=== PATIENT | male | born 1960 | race Caucasian/White ===

== ENCOUNTER 2017-10-31 19:15 | Inpatient (IN) | payer OTHER, MEDICAID ==
[~2017-10-31] VITALS: Ht 170.2 cm; Wt 58.5 kg
--- NOTE | 2017-10-31 19:15 | NUR ---
PT BIBA ALS TO ER BED 10
--- NOTE | 2017-10-31 19:20 | NUR ---
BIBA with c/o of clogged reny cath. pt was unable to recieve dialysis today. pt came from [facility]. pt is on a vent. at 35 %. pt has hx of pressure ulcers x 2. one on each buttocks. pt also has a smallwound on the upper part of chest and a scratch by his reny cath. [facility] stated that he was trying to pull out all his quitin cath and vent. pt has mittens to prevent from pulling out all tubes. pt is nonverbal.; SKIN IS Pale/cool/DRY; AAOX1. LUNGS CLEAR BL; HR EVEN AND REGULAR; PATIENT STATES PAIN OF 0/10 AT THIS TIME used flacc scale.; VSS; PATIENT POSITIONED FOR COMFORT; HOB ELEVATED; BEDRAILS UP X2; BED DOWN. ER MD MADE AWARE OF PT STATUS.
[2017-10-31 19:31] VITALS: BP 100/55
[2017-10-31] MEDS ORDERED: D50SYR IVP (19:42)
[2017-10-31] MEDS ORDERED: LEVE100S GT (19:42)
[2017-10-31] MEDS ORDERED: ACET160S12 GT (19:42)
[2017-10-31] MEDS ORDERED: VALP250S5 GT (19:42)
[2017-10-31] MEDS ORDERED: METO25TA GT (19:42)
[2017-10-31] MEDS ORDERED: AMIO200T25 GT (19:42)
[2017-10-31] MEDS ORDERED: PANT40PK GT (19:42)
[2017-10-31] MEDS ORDERED: NEP GT (19:42)
[2017-10-31] MEDS ORDERED: HYDR-636 GT (19:42)
[2017-10-31 20:22] LABS: HEMATOCRIT 35.3 % (36-52); HEMOGLOBIN 11.1 g/dL (12.0-18.0); MEAN CORPUSCULAR HEMOGLOBIN 30 pg (27-31); MEAN CORPUSCULAR HGB CONC 31 g/dL (33-37); MEAN CORPUSCULAR VOLUME 96.1 fL (80-94); PLATELET COUNT (AUTO) 546 K/uL (140-450); RED BLOOD CELL COUNT(AUTO) 3.68 MIL/uL (4.20-6.10); RED CELL DISTRIBUTION WIDTH 17.7 % (11.6-13.7)
[2017-10-31 20:43] LABS: EOSINOPHILS % (MANUAL) 3 % (0-4); LYMPHOCYTES % (MANUAL) 7 % (20-46); METAMYELOCYTES % 2 % (0-0); MONOCYTES % (MANUAL) 7 % (5-12); PROMYELOCYTES % 1 % (0-0)
[2017-10-31 20:51] LABS: ALBUMIN 2.5 g/dL (3.4-5.0); ANION GAP 17.8 (8-16); CARBON DIOXIDE 24.4 mmol/L (21-32); POTASSIUM 4.2 mmol/L (3.5-5.1); TOTAL BILIRUBIN 0.4 mg/dL (0.0-1.0)
[2017-10-31 20:52] LABS: PROTHROMBIN TIME 12.9 secs (10.8-13.4)
[2017-10-31 20:58] LABS: CREATINE KINASE MB 1.1 ng/mL (0-3.6)
[2017-10-31 21:00] LABS: CREATININE 6.3 mg/dL (0.7-1.3)
[2017-10-31] MEDS ORDERED: NACL 0.9% 1,000 ML IV SCH (21:11)
[2017-10-31] MEDS ORDERED: DOCUSATE SODIUM 100 MG GELCAP PO PRN (21:15)
[2017-10-31] MEDS ORDERED: MORPHINE SULFATE 2 MG/ML SYR IVP PRN (21:15)
[2017-10-31] MEDS ORDERED: HYDROcodone/APAP 5/325 MG 1 TAB TAB PO PRN (21:15)
[2017-10-31] MEDS ORDERED: ONDANSETRON 4 MG/2 ML VIAL IM/IVP PRN (21:15)
[2017-10-31] MEDS ORDERED: ACETAMINOPHEN 325 MG TAB PO PRN (21:15)
[2017-10-31 21:51] LABS: CHOL/HDL RATIO 3.4 (1-4.5); FREE T4 (FREE THYROXINE) 1.02 ng/dL (0.76-1.46); MAGNESIUM 2.7 mg/dL (1.8-2.4); THYROID STIMULATING HORMONE 5.24 uIU/mL (0.34-3.74)
[2017-10-31] MEDS ORDERED: DEXT 5% / NACL 0.9% 500 ML IV SCH (22:05)
[2017-10-31 22:06] LABS: PHOSPHORUS 4.1 mg/dL (2.5-4.9)
[2017-10-31] MEDS ORDERED: LORazepam 1 MG TAB PO PRN (22:30)
[2017-10-31] MEDS ORDERED: hydrOXYzine HCL 25 MG TAB GT SCH (22:30)
[2017-10-31] MEDS ORDERED: ACETAMINOPHEN GT SCH (22:30)
[2017-10-31] MEDS ORDERED: DEXTROSE 50% 50 ML SYR IVP PRN (22:30)
--- NOTE | 2017-10-31 22:30 | NUR ---
PATIENT TRANSFERRED TO ROOM 114 VIA 100% AMBU BAG AND THEN PLACED BACK ON CURRENT VENTILATOR SETTINGS AC-12, VT-450, FIO2-35% PEEP+5. NO SIGNS OF RESP. DISTRESS NOTED DURING TRANSPORT HR-88, SAO2-100% RR-17BPM
--- NOTE | 2017-10-31 22:30 | NUR ---
NOTED 2 EXISTING PRESSURE ULCER WOUNDS. ONE ON EACH BUTTOCKS.
[2017-10-31 22:40] VITALS: BP 110/59
--- NOTE | 2017-10-31 22:40 | NUR ---
REPORT RECEIVED FROM ED NURSE AT BEDSIDE. PT IN STABLE CONDITION. AAOX1. NONVERBAL. BOARD UPDATED. PT IS A TRACH TO VENT. VENT SETTINGS ARE FOLLOWS: FIO2 35, VT 450, RATE 12, PEEP 5. PT HAS COLOSTOMY. PT IS ALSO INCONTINENT WEARING A DIAPER. PT CAME IN WEARING MITTENS DUE TO ATTEMPTING TO PULL OUT IV LINE AND TRACH. IV SITE R WRIST 22G PATENT AND INTACT RUNNING D5NS @50ML/HR. PT HAS A LEFT NECK REBECCA CATH THAT HAS MALFUNCTIONED. THE LEFT SIDE OF THE CATHETER IS NOT SECURED. PT IS TELE MONITORING. SKIN WARM, DRY, AND NOT INTACT DUE TO PRESSURE ULCER ON LEFT BUTTOCKS. HEALED PRESSURE ULCER ON SACRUM AND RIGHT BUTTOCK. BED LOCKED IN LOW POSITION. CALL JUAREZ WITHIN REACH. Addendum: 11/01/17 at 0224 by Humberto Tran RN PT HAS JOHNY.
--- NOTE | 2017-10-31 22:40 | NUR ---
Pt report given to tammy pozo. Transfer of care at this time. pt vitals stable
--- NOTE | 2017-10-31 22:40 | NUR ---
Admited to telemetry. Will go to room 114. Belongings list completed. Report to tammy lucas.
[2017-10-31] MEDS ORDERED: ACETAMINOPHEN 650 MG/20.3 ML UDC GT PRN (23:00)
[2017-10-31] MEDS ORDERED: PIPERACILLIN/TAZOBACTAM 2.25 GM VIAL IV ONE (23:54)
[2017-11-01] VITALS: BP 89/50
[2017-11-01] MEDS ORDERED: PIPER/TAZO 3.375GM/D5W PREMIX 50 ML IV SCH
--- NOTE | 2017-11-01 | NUR ---
FEDERICA PALACIOS GIVEN THROUGH GTUBE. GTUBE WAS SLIGHTLY CLOGGED. FLUSHED WITH WATER TILL UNCLOGGED. PT TOLERATED WELL. Addendum: 11/01/17 at 0230 by Humberto Tran RN HAD TO OVER RIDE ZOSYN. DUPLICATE ORDER WAS NON ADMINISTRATED.
[2017-11-01] MEDS ORDERED: VANCOMYCIN PER PHARMACY MC PRN (00:15)
--- NOTE | 2017-11-01 00:15 | NUR ---
SEIZURE PRECAUTIONS IN PLACE.
--- NOTE | 2017-11-01 00:30 | NUR ---
CHECKING ON PT AND HE KEEPS REACHING FOR HIS TRACH LOOKING LIKE HE IS TRYING TO PULL IT OUT. GRABBED HIS HAND AND PULLED IT AWAY FROM HIS TRACH BUT PT CONTINUES TO TRY TO REACH FOR IT.
--- NOTE | 2017-11-01 00:45 | NUR ---
LEFT BUTTOCK PRESSURE ULCER WOUND CULTURE RECEIVED AND SENT TO LAB.
--- NOTE | 2017-11-01 01:15 | NUR ---
RT IN TO CHECK ON VENT SETTINGS. SAID THAT PT HAD HANDS AROUND HIS TRACH LOOKING LIKE HE WAS GOING TO PULL IT OUT. WENT TO MD TO ASK FOR WRIST RESTRAINTS.
--- NOTE | 2017-11-01 01:20 | NUR ---
WRIST RESTRAINTS APPLIED TO PREVENT PULLED OUT OF IV LINES AND TRACH.
--- NOTE | 2017-11-01 01:30 | NUR ---
CALLED INSTRUCTOR BUS TROLLEY AND TAXI FOR SCD'S. SCD'S APPLIED.
[2017-11-01] MEDS ORDERED: VANCOMYCIN 1,000 MG VIAL ONE (01:36)
--- NOTE | 2017-11-01 01:45 | NUR ---
ORDERED VANCO. OVERRIDDEN AND DUPLICATE ORDER WAS NON-ADMINED. PT TOLERATING WELL.
[2017-11-01] MEDS ORDERED: VANCOMYCIN 1,000 MG in NACL 0.9% 250 ML IV SCH (02:00)
--- NOTE | 2017-11-01 03:15 | NUR ---
RESTRAINTS OFF AFTER 2 HOURS. CIRCULATION CHECKED. SKIN CHECKED. PT STABLE.
--- NOTE | 2017-11-01 03:35 | NUR ---
RESTRAINTS BACK ON. QUICK RELEASE AVAILABLE.
[2017-11-01 04:00] VITALS: BP 112/57
[2017-11-01 04:57] LABS: HEMATOCRIT 33.6 % (36-52); HEMOGLOBIN 10.8 g/dL (12.0-18.0); MEAN CORPUSCULAR HEMOGLOBIN 31 pg (27-31); MEAN CORPUSCULAR HGB CONC 32 g/dL (33-37); MEAN CORPUSCULAR VOLUME 96.6 fL (80-94); PLATELET COUNT (AUTO) 522 K/uL (140-450); RED BLOOD CELL COUNT(AUTO) 3.47 MIL/uL (4.20-6.10); RED CELL DISTRIBUTION WIDTH 17.6 % (11.6-13.7); WHITE BLOOD COUNT (AUTO) 19.7 K/uL (4.8-10.8)
[2017-11-01] MEDS ORDERED: NACL 0.9% 1,000 ML IV SCH (05:55)
--- NOTE | 2017-11-01 06:00 | NUR ---
RESTRAINTS RELEASED. CHECKED FOR PULSE AND CIRCULATION. CHECKED FOR INJURY. NO S/S OF DISTRESS.
--- NOTE | 2017-11-01 06:20 | NUR ---
BS TAKEN. BS 502. NOTIFIED. CHANGED FLUID TO NS FROM D5NS. SAID SHE WILL BRING IT UP TO THE OTHERS DOCTORS AND GIVE ORDERS TO AM SHIFT.
[2017-11-01] MEDS: BLOOD GLUCOSE MONITORING 1 DEV DEV FS SCH ×4 (06:26→21:16)
--- NOTE | 2017-11-01 07:07 | NUR ---
REC'D PT ON CARESCAPE VENT SETTINGS AC 12 VT 450 PEEP 5 FIO2 35% ALARMS ON AND AUDIBLE AND VENT IS PLUGGED INTO RED OUTLET, AMBU BAG AT [facility], B\S ARE COARSE AND SXN PT SMALL AMT OF CREAM COLOR SECRETIONS, PT IS TRACH WITH PORTEX 7 AND SKIN INTEGRITY IS INTACT PT IS AWAKE WITH NO SIGNS OF DISTRESS NOTED
--- NOTE | 2017-11-01 07:10 | NUR ---
RECEIVED REPORT FROM NIGHTSHIFT NURSE AT BEDSIDE. PATIENT IS AWAKE AT THIS TIME BUT APHASIC. PATIENT ABLE TO TRACK PEOPLE WITHIN THE ROOM. PATIENT IS TRACH TO VENT AT THIS TIME, FIO2-35, VT 450, RATE - 12, FLOW - 40L/MIN, PEEP - 5. PATIENT HAS PRESSURE ULCER ON LEFT BUTTOCK WITH DRESSING DRY AND INTACT. PATIENT HAS A COLOSTOMY IN PLACE. PATIENT HAS AN IV NOTED ON HIS RIGHT WRIST 22G RUNNING NACL AT 50 ML/HR. G-TUBE IN PLACE WITH PATENCY. PATIENT HAS WRIST RESTRAINTS AT THIS TIME. NO SIGNS OF SKIN BREAKDOWN AND PULSES PALPABLE. PATIENT ALSO HAS MITTENS ON WITH NO SKIN BREAKDOWN NOTED. UPDATED BOARD IN PATIENT'S ROOM. LOWERED BED TO LOWEST SETTING. WILL CONTINUE TO MONITOR PATIENT.
--- NOTE | 2017-11-01 07:10 | NUR ---
REPORT GIVEN TO AM NURSE AT BEDSIDE. PT IN STABLE CONDITION.
[2017-11-01 07:25] LABS: MAGNESIUM 2.7 mg/dL (1.8-2.4); PHOSPHORUS 4.6 mg/dL (2.5-4.9)
[2017-11-01] MEDS: DEXT 5% / NACL 0.45% 1,000 ML IV SCH (07:25)
--- NOTE | 2017-11-01 07:27 | NUR ---
CHECKED PATIENT'S BLOOD SUGAR AND IT WAS 185. NOTIFIED DR. MYERS OF FINDING. WILL CONTINUE TO MONITOR PATIENT.
[2017-11-01 07:28] LABS: ANION GAP 19.3 (8-16); CARBON DIOXIDE 23.9 mmol/L (21-32); POTASSIUM 4.2 mmol/L (3.5-5.1)
[2017-11-01] MEDS ORDERED: DOCUSATE 100 MG/10 ML UDC PO PRN (07:37)
[2017-11-01] MEDS ORDERED: hydrOXYzine HCL 25 MG TAB GT PRN (07:38)
[2017-11-01 07:55] LABS: CREATININE 5.4 mg/dL (0.7-1.3)
[2017-11-01 08:00] VITALS: BP 145/62
--- NOTE | 2017-11-01 08:49 | NUR ---
VENT CHECK, NO SXN NEEDED AT THIS TIME, AIRWAY IS PATENT AND PT IS RESTING
[2017-11-01] MEDS ORDERED: INSULIN LANTUS 100 UNITS/ML 10 ML VIAL SUBQ SCH (09:00)
[2017-11-01] MEDS ORDERED: METOPROLOL TARTRATE GT SCH (09:00)
[2017-11-01] MEDS ORDERED: levETIRAcetam 100 MG/ML ORASYR GT SCH ×2 (09:00)
[2017-11-01] MEDS ORDERED: NON-FORMULARY ITEM (Pantoprazole Sodium (Protonix) 40 MG) GT SCH (09:00)
[2017-11-01] MEDS ORDERED: VALPROIC ACID GT SCH (09:00)
[2017-11-01 09:44] LABS: EOSINOPHILS % (MANUAL) 2 % (0-4); LYMPHOCYTES % (MANUAL) 5 % (20-46); MONOCYTES % (MANUAL) 5 % (5-12)
[2017-11-01] MEDS: LACTOBACILLUS RHAMNOSUS GG 1 EACH CAP PO SCH (10:03)
[2017-11-01] MEDS: VALPROIC ACID 250 MG/5 ML UDC GT SCH ×2 (10:03→21:05)
[2017-11-01] MEDS: AMIODARONE 200 MG TAB GT SCH (10:04)
[2017-11-01] MEDS: LANSOPRAZOLE 30 MG CAPDR GT SCH (10:04)
[2017-11-01] MEDS: LACTULOSE 20 GM/30 ML UDC GT SCH ×2 (10:04→21:05)
[2017-11-01] MEDS: METOPROLOL 25 MG TAB GT SCH ×2 (10:05→21:06)
--- NOTE | 2017-11-01 10:08 | NUR ---
PATIENT HAS BEEN SCREENED AND CATEGORIZED HIGH NUTRITION RISK. PATIENT WILL BE SEEN WITHIN 1-2 DAYS OF ADMISSION. 11/01/17 11/02/[address]
[2017-11-01] MEDS: INSULIN LANTUS 100 UNITS/ML 10 ML VIAL SUBQ SCH (10:14)
[2017-11-01] MEDS: levETIRAcetam 100 MG/ML ORASYR GT SCH ×2 (10:33→21:06)
--- NOTE | 2017-11-01 10:40 | NUR ---
VENT CHECK, SXN PT SMALL AMT OF CREAM COLOR SECRETIONS PT RESTING WITH RN AT BEDSIDE
--- NOTE | 2017-11-01 11:45 | NUR ---
LEFT VOICEMAIL WITH SUREKHA LUEVANO REGARDING PATIENT'S PROCEDURE OF PLACEMENT OF A NEW HEMODIALYSIS CATHETER. AWAITING CALL BACK FROM PATIENT'S GEOGRAPHY FACULTY MEMBER.
[2017-11-01 12:00] VITALS: BP 118/68
--- NOTE | 2017-11-01 12:06 | NUR ---
SPOKE TO SUREKHA REGARDING CONSENT. SUREKHA FAXED THE REQUEST FOR CONSENT TO PEOPLE IN CHARGE OF THIS PATIENT FOR BOTH HEMODIALYSIS AND HEMODIALYSIS CATHETER PLACEMENT.
--- NOTE | 2017-11-01 13:16 | NUR ---
VENT CHECK, AIRWAY IS PATENT AND PT IS RESTING WITH SG SIMONS AT BEDSIDE
[2017-11-01] MEDS: INSULIN LISPRO SLIDING SCALE 100 UNITS/ML VIAL SUBQ PRN ×3 (14:04→21:15)
--- NOTE | 2017-11-01 14:30 | NUR ---
PATIENT RESTING AT THIS TIME. NO DISTRESS NOTED. WILL CONTINUE TO MONITOR PATIENT.
--- NOTE | 2017-11-01 15:06 | NUR ---
VENT CHECK, AIRWAY PATENT AND PT IS RESTING ABG DRAWN ON LR WITHOUT INCIDENT AND RESULTS GIVEN TO ORDERED TO CHANGE VENT SETTINGS TO DECREASE VT 400 AND DECREASE FIO2 TO 30%
--- NOTE | 2017-11-01 15:28 | NUR ---
WOUND CARE EVALUATION NOTE: REASON FOR EVALUATION: LEFT BUTTOCK WOUND SKIN ASSESSMENT DONE WITH PRIMARY RN AT 10:30 AM WITH THIS 57 Y/O MALE PT ADMITTED FROM [facility]TO [facility]. 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 PT. ADMITTED WITH PRESSURE INJURY STAGE 4. ALL ABOVE INFORMATION OBTAINED FROM ADMISSION H&P. LABS ARE WBC19.7, H/H 10.8/33.6, GLUCOSE 79 AND ALBUMIN 2.5. PT IS AWAKE. SKIN IS WARM AND DRY, BLE NO HAIR GROWTH, NO EDEMA, DORSAL PEDAL PULSES PRESENT AND NORMAL. CAPILLARY REFILLED < 2 SEC. X 10 TOES. PLAN OF CARE DISCUSSED WITH PRIMARY RN. INTEGUMENTARY: -TRACH STOMA SITE EDITH-STOMA SKIN CLEAN AND DRY. -QUINTAN CATH TO LEFT IJ DRESSING DCI -GT MID ABDOMEN, EDITH-STOMA SKIN INTACT, DRY AND CLEAN. -DRY SCAB TO LEFT UPPER CHEST. -LLQ ABDOMEN COLOSTOMY, EDITH-STOMA SKIN INTACT, COLOSTOMY STOMA RED WITH 1 DIAMETER WITH 1CM TALL AND FUNCTIONING. -PRESSURE INJURY STAGE 4 TO LEFT ISCHIUM 3X3X1.2 WITH TUNNELING AT 12 OCLOCK 6 CM IN LENGTH, WOUND EDGE ROLLED WITH 3O % YELLOW SLOUGH TO WOUND EDGE AND 70 % OF GRANULATING TISSUE TO WOUND BED, MODERATE AMOUNT OF SEROUS DRAINAGE, NO ODOR -MOISTURE ASSOCIATE DERMATITIS (MAD) TO: B/L GROINS EXTENDED TO RIGHT BUTTOCK AND PERINEUM RECOMMENDATIONS: -SURGEON TO CONSULT FOR DEBRIDEMENT -KEEP SKIN DRY AND CLEAN AT ALL TIMES, PLEASE CHECK Q2H AND PRN FOR DRYNESS -CLEANSE LEFT ISCHIUM WOUND WITH WOUND CARE SOLUTION, PAT DRY, APPLY THERAHONEY GEL TO WOUND BED, PACK WITH SILVER ALGINATE ROPE AND COVER WITH DRY DRESSING CHANGE QD AND PRN IF SOILING. -APPLY Z-GUARD TO: B/L GROINS EXTENDED TO PERINEUM AND RIGHT BUTTOCK BIDWC AND PRN IF SOILING -OFFLOAD BILATERAL HEELS BY PLACING PILLOWS UNDER CALVES UNLESS OTHERWISE CONTRAINDICATED -PRESSURE REDISTRIBUTION SURFACE THERAPY -TURN AND REPOSITION Q2H, OFFLOAD SACROCOCCYX BY TURNING RIGHT AND LEFT -CONTINUE TO FOLLOW RD RECOMMENDATIONS ALL ABOVE RECOMMENDATIONS DISCUSSED WITH PRIMARY RN WILL FOLLOW UP PT Q7-10 DAYS. PLEASE CONTACT WOUND CARE NURSE FOR ANY QUESTION AND CHANGE OF WOUND CONDITION
[2017-11-01] MEDS ORDERED: ALBUTEROL SULFATE/IPRATROPIU 3 ML SOL IH PRN (15:50)
[2017-11-01 16:00] VITALS: BP 115/54
--- NOTE | 2017-11-01 16:22 | NUR ---
PATIENT RESTING AT THIS TIME. NO DISTRESS NOTED. WILL CONTINUE TO MONITOR PATIENT.
--- NOTE | 2017-11-01 16:30 | NUR ---
11/01/17 RD INITIAL ASSESSMENT COMPLETED PLEASE REFER TO NUTRITION ASSESSMENT UNDER CARE ACTIVITY FOR ESTIMATED NUTRITIONAL NEEDS. 1. WHEN/IF PT MEDICALLY STABLE TO BEGIN NUTRITION, CONSIDER ADVANCE NUTRITION SUPPORT TOLERATED TO NEPRO WITH CARBSTEADY @35ML/H WITH 250ML H2O FLUSH Q4H -THIS WILL PROVIDE 1512 KCAL (95% ESTIMATED ENERGY REQUIREMENTS), 68 GM PRO (100% ESTIMATED PROTEIN REQUIREMENTS), AND 1610 ML FLUIDS (100% ESTIMATED FLUID REQUIREMENTS) 2. RECOMMEND 1 PKT VIOLETTA QD FOR WOUND HEALING 3. RD TO FOLLOW-UP 2-3 DAYS, HIGH RISK [address]STAN[address]
--- NOTE | 2017-11-01 16:32 | NUR ---
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 She stated patient does not have any family members and [facility] can be contacted for medical consents, service advocate contact is Geovanna Galvez . I called and spoke with Geovanna and confirmed [facility] can be contacted for medical consents.
--- NOTE | 2017-11-01 16:56 | NUR ---
VENT CHECK, SXN PT SMALL AMT OF CREAM COLOR SECRETIONS, TRACH CARE DONE
[2017-11-01] MEDS ORDERED: Z-GUARD PASTE TP PRN (17:20)
--- NOTE | 2017-11-01 18:00 | NUR ---
GAVE REPORT TO NIGHTSNDFT NURSE AT BEDSIDE. PATIENT IN STABLE CONDITION. Addendum: 11/01/17 at 1911 by Cal Iqbal II, RN TIME IS FOR 1899.
--- NOTE | 2017-11-01 19:20 | NUR ---
RECEIVED PT WITH EYES CLOSED, OPEN EYES TO TOUCH, APHASIC, VITAL SIGNS STABLE, ON TRACH TO VENT WITH 30% FI02, NON-FUNCTIONING LEFT HD CATH IN PLACE, IVF INFUSING WELL, ON DONNA SOFT WRIST RESTRAINTS, PROTOCOL IN PLACE, LEFT COLOSTOMY INTACT WITH BROWNISH SLIGHTLY LOOSE STOOL NOTED, G-TUBE CLAMPED AT THIS TIME, MAINTAINED ON NPO EXCEPT MEDS, BEDBOUND AND CONTRACTED EXTREMITIES, WILL REPOSITION Q2H AND OFFLOAD PRESSURE AREAS, SAFETY MEASURES IN PLACE, CALL LIGHT WITHIN REACH.
[2017-11-01 20:00] VITALS: BP 115/65
--- NOTE | 2017-11-01 20:35 | NUR ---
BLOOD SUGAR CHECKED WITH 167 RESULT, WILL GIVE COVERAGE, RESTRAINTS RELEASE FOR 15 MINUTES PER PROTOCOL, PT AT TIMES SCRATCH FACE AND TRYING TO REACH TRACH TUBE WITH HIS RT HAND, RESUMED RESTRAINTS DUE TO POSSIBILITY OF PULLING OUT TUBES/LINES, ALL NEEDS ANTICIPATED.
[2017-11-01] MEDS ORDERED: PIPER/TAZO 2.25GM/D5W PREMIX 50 ML IV SCH ×2 (21:00)
[2017-11-01] MEDS: VIT-B COMP/VIT-C/FOLIC ACID 1 TAB GT SCH (21:05)
[2017-11-02] VITALS: BP 104/49
--- NOTE | 2017-11-02 | NUR ---
PT SLEEPING, OPEN EYES TO TOUCH, VITAL SIGNS STABLE, FLACC-0, RESTRAINTS RELEASED FOR 15 MINUTES, ABLE TO MOVE RIGHT ARM TO SCRATCH HIS FACE AND HEAD, NO ATTEMPT TO PULL OUT TUBES OR LINES AT THIS TIME, SUCTION SECRETION PRN, SMALL AMOUNT OF WHITISH SECRETION NOTED, REPOSITIONED AND OFFLOAD PRESSURE AREAS, CONTINUE TO MONITOR CLOSELY.
[2017-11-02] MEDS: DEXT 5% / NACL 0.45% 1,000 ML IV SCH ×2 (00:05→17:34)
[2017-11-02 04:00] VITALS: BP 106/51
--- NOTE | 2017-11-02 04:40 | NUR ---
PT INCONTINENT, SMALL AMOUNT OF URINE NOTED, PERINEAL CARE DONE, COLOSTOMY BAG EMPTIED WITH 400ML BROWNISH LOOSE STOOL, LEFT ISCHIAL WOUND DRESSING DRY AND INTACT, CONTINUE TO REPOSITION AND OFFLOAD PRESSURE AREAS, MONITORED CLOSELY.
--- NOTE | 2017-11-02 05:40 | NUR ---
BLOOD SUGAR CHECKED WITH 119 RESULT, NO COVERAGE NEEDED, MAINTAINED ON NPO EXCEPT MEDS, IVF INFUSING WELL, SCHEDULED SURGERY AT 1200 TODAY, MONITORED CLOSELY.
[2017-11-02 06:20] LABS: BASOPHILS # (AUTO) 0.1 K/uL (0.00-0.22); BASOPHILS % (AUTO) 0.3 % (0.0-2.0); EOSINOPHILS # (AUTO) 0.8 K/uL (0-0.4); EOSINOPHILS % (AUTO) 4.3 % (0.0-4.0); HEMATOCRIT 32.2 % (36-52); HEMOGLOBIN 10.2 g/dL (12.0-18.0); LYMPHOCYTES # (AUTO) 0.8 K/uL (2.0-11.5); LYMPHOCYTES % (AUTO) 4.3 % (20.5-51.1); MEAN CORPUSCULAR HEMOGLOBIN 31 pg (27-31); MEAN CORPUSCULAR HGB CONC 32 g/dL (33-37); MEAN CORPUSCULAR VOLUME 97.1 fL (80-94); NEUTROPHILS # (AUTO) 16.4 K/uL (1.8-7.7); NEUTROPHILS % (AUTO) 86.1 % (42.2-75.2); PLATELET COUNT (AUTO) 575 K/uL (140-450); RED BLOOD CELL COUNT(AUTO) 3.31 MIL/uL (4.20-6.10); RED CELL DISTRIBUTION WIDTH 17.6 % (11.6-13.7); WHITE BLOOD COUNT (AUTO) 19.1 K/uL (4.8-10.8)
[2017-11-02] MEDS: BLOOD GLUCOSE MONITORING 1 DEV DEV FS SCH ×4 (06:53→20:37)
--- NOTE | 2017-11-02 07:00 | NUR ---
late entry recived pt 0725 on vent with settings as charted breath sounds peresent bilat with scatterd rales sxn pt with min amt yellow secs trach site secure ambu bag at [facility] vent plugged into red outlet will continue to monitor pt on vent
--- NOTE | 2017-11-02 07:15 | NUR ---
PT SLEEPING, NO SIGNS OF DISTRESS, NO SEIZURE EPISODE THE WHOLE SHIFT, REPORT GIVEN TO SG SIMONS FOR CONTINUITY OF CARE.
--- NOTE | 2017-11-02 07:15 | NUR ---
RECEIVED REPORT FROM NIGHTSHIFT NURSE AT BEDSIDE. PATIENT IS ASLEEP AT THIS TIME BUT AROUSABLE UPON VOICE. PATIENT IS TRACH TO VENT AT THIS TIME WITH FIO2 AT 30%. PATIENT HAS RESTRAINTS AT THIS TIME. NO SIGNS OF SKIN BREAKDOWN OR INJURY UPON TAKING OFF RESTRAINTS. IV NOTED ON LEFT HAND 22G RUNNING D5 1/2 NS AT 60 ML/HR. NO DISTRESS NOTED FROM PATIENT. FLACC SCORE IS 0. PATIENT HAS A COLOSTOMY BAG IN PLACE WITH BROWNISH LIQUID DRAINAGE. WOUND NOTED ON LEFT HIP WITH DRESSING DRY AND INTACT. BILATERAL HEELS SHOW REDNESS. RAISED HEELS OFF THE BED WITH PILLOWS. UPDATED BOARD IN PATIENT'S ROOM. LOWERED BED. BED ALARM ON. WILL CONTINUE TO MONITOR PATIENT.
[2017-11-02 07:16] LABS: CARBON DIOXIDE 20.2 mmol/L (21-32); POTASSIUM 4.2 mmol/L (3.5-5.1)
[2017-11-02 07:38] LABS: MAGNESIUM 2.8 mg/dL (1.8-2.4)
[2017-11-02 07:41] LABS: T4 (THYROXINE) 6.5 ug/dL (4.5-12.0)
[2017-11-02] MEDS: BUPIVACAINE-MPF 0.25% 30 ML VIAL INJ ONE ×2 (07:48→13:36)
[2017-11-02] MEDS ORDERED: LIDOCAINE MPF 1% - 5 mL VIAL 0 ML ONE (07:49)
[2017-11-02 07:59] VITALS: BP 101/50
--- NOTE | 2017-11-02 08:00 | NUR ---
recived pt on vent with settings as charted breath sounds present bilat scatterd rales sxn pt with min amt yellowish secs trach site secure ambu bag at bedside vent plugged inti red outlet will continue to monitor pt on vent
[2017-11-02] MEDS: LACTOBACILLUS RHAMNOSUS GG 1 EACH CAP PO SCH (08:43)
[2017-11-02] MEDS: LACTULOSE 20 GM/30 ML UDC GT SCH ×2 (08:43→20:29)
[2017-11-02] MEDS: LANSOPRAZOLE 30 MG CAPDR GT SCH (08:43)
[2017-11-02] MEDS: levETIRAcetam 100 MG/ML ORASYR GT SCH ×3 (08:44→20:30)
[2017-11-02] MEDS: VALPROIC ACID 250 MG/5 ML UDC GT SCH ×2 (08:44→20:29)
[2017-11-02] MEDS: AMIODARONE 200 MG TAB GT SCH (08:44)
[2017-11-02 08:45] LABS: CREATININE 6.6 mg/dL (0.7-1.3)
[2017-11-02] MEDS: INSULIN LANTUS 100 UNITS/ML 10 ML VIAL SUBQ SCH (08:54)
[2017-11-02] MEDS: METOPROLOL 25 MG TAB GT SCH ×2 (09:00→20:37)
--- NOTE | 2017-11-02 11:15 | NUR ---
PATIENT RESTING IN BED. NO DISTRESS NOTED. WILL CONTINUE TO MONITOR PATIENT.
[2017-11-02] MEDS ORDERED: VANCOMYCIN PER PHARMACY MC PRN (11:20)
[2017-11-02 12:00] VITALS: BP 132/58
[2017-11-02] MEDS ORDERED: LIDOCAINE MPF 1% - 5 mL VIAL 5 ML ONE (12:19)
--- NOTE | 2017-11-02 12:20 | NUR ---
pt transported to or via ambu bag 100%fi02 no ill effects noted
[2017-11-02] MEDS ORDERED: PROPOFOL 200 MG/20 ML VIAL IV ONE (12:24)
[2017-11-02] MEDS ORDERED: ePHEDrine 50 MG/ML VIAL ONE (12:24)
--- NOTE | 2017-11-02 12:25 | NUR ---
pt transfered to or for procedure via ambu bag no ill effects noted
[2017-11-02 12:33] LABS: FOLIC ACID > 20.00 ng/mL (>3.0)
[2017-11-02] MEDS ORDERED: fentaNYL 0.05 MG/ML VIAL ONE (12:33)
[2017-11-02] MEDS: INSULIN LISPRO SLIDING SCALE 100 UNITS/ML VIAL SUBQ PRN (12:38)
--- NOTE | 2017-11-02 12:38 | NUR ---
PATIENT LEFT UNIT VIA TELE BED WITH TWO O.R. NURSES AND A RESPIRATORY THERAPIST. PATIENT LEFT IN STABLE CONDITION
[2017-11-02] MEDS ORDERED: ONDANSETRON 4 MG/2 ML VIAL IVP PRN (12:55)
[2017-11-02] MEDS ORDERED: HYDROmorphone 1 MG/ML AMP IVP PRN (12:55)
[2017-11-02] MEDS ORDERED: BLOOD GLUCOSE MONITORING 1 DEV DEV FS SCH (13:30)
[2017-11-02] MEDS ORDERED: LIDOCAINE MPF 1% 5mL VIAL INJ ONE (13:36)
--- NOTE | 2017-11-02 13:54 | NUR ---
RECEIVED PATIENT FROM O.R. NURSES AND RT. PATIENT IS AROUSABLE BUT IS HYPOTENSIVE UPON VITAL SIGN MEASUREMENT. RECOVERY NURSE WILL STAY WITH PATIENT UNTIL 14:15. NOTIFIED DOCTOR OF FINDINGS. DOCTOR TO SEE PATIENT.
[2017-11-02] MEDS ORDERED: NACL 0.9% 500 ML IV SCH (14:25)
--- NOTE | 2017-11-02 14:49 | NUR ---
PATIENT WILL BE TRANSFER BACK TO [facility], AUTH # [id number]. AND WII BE TRASPORTED WITH AND AUTH NUMBER [id number]. AUTH WERE GIVEN FROM [facility] CHILDHOOD DEVELOPMENT TEACHER PONCE. INSPECTOR REPAIRER AT 630 BY AT 1830. WILL GO TO ROOM 116-C. Addendum: 11/02/17 at 1517 by Sherman Odonnell CM DISREGARD ABOVE NOTES. WRONG PATIENT
--- NOTE | 2017-11-02 15:10 | NUR ---
PATIENT LATEST BLOOD PRESSURE IS 96/48 AFTER 500 ML BOLUS. WILL CONTINUE TO MONITOR PATIENT.
[2017-11-02 16:00] VITALS: BP 95/48
--- NOTE | 2017-11-02 17:20 | NUR ---
PATIENT RESTING AT THIS TIME. PATIENT SHOWS NO SIGNS OF DISTRESS. WILL CONTINUE TO MONITOR PATIENT.
--- NOTE | 2017-11-02 17:47 | NUR ---
continued to monitor pt on vent with settings as charted breath sounds present bilat scatterd rales sxn pt with min amt off white secs trach site secure removed stiches placed new trach collar changed dressing ambu bag at bedside vent pliuggeed into red outl-et
--- NOTE | 2017-11-02 19:13 | NUR ---
GAVE REPORTED TO NIGHTSHIFT NURSE. PATIENT IS STILL RECEIVING DIALYSIS. PATIENT IN STABLE CONDITION.
--- NOTE | 2017-11-02 19:14 | NUR ---
RECEIVED PT AWAKE, APHASIC PRESENTLY GETTING HEMODIALYSIS VIA LEFT CHEST REBECCA CATH, NO BLEEDING NOTED ON THE SITE, ON TRACH TO VENT, SAT-100% ON 30% FI02, NO RESP DISTRESS NOTED, DONNA SOFT WRIST RESTRAINTS IN PLACE, PROTOCOL IN PLACE, IVF INFUSING WELL, G-TUBE CLAMPED, MAINTAINED ON NPO EXCEPT MEDS, SAFETY MEASURES IN PLACE, CALL LIGHT WITHIN REACH.
[2017-11-02 20:00] VITALS: BP 113/54
[2017-11-02] MEDS: VIT-B COMP/VIT-C/FOLIC ACID 1 TAB GT SCH (20:30)
--- NOTE | 2017-11-02 20:30 | NUR ---
HEMODIALYSIS DONE WITH VITAL SIGNS STABLE, OUTPUT 2000ML, BLOOD SUGAR CHECKED WITH 150 RESULT, NO G-TUBE RESIDUAL NOTED, DUE MEDS ADMINISTERED VIA G-TUBE AFTER POSITIVE PLACEMENT VERIFICATION, COLOSTOMY INTACT WITH MODERATE LOOSE STOOL NOTED, REPOSITIONED AND OFFLOAD PRESSURE AREAS, RESTRAINTS RELEASED Q2H FOR 15 MINUTES, ABLE TO MOVE BOTH ARMS AND USES RIGHT HAND TO SCRATCH HEAD AND FACE, PUT BACK RESTRAINTS TO PREVENT PULLING OUT OF TRACH AND DIALYSIS CATH, NEEDS ANTICIPATED.
--- NOTE | 2017-11-02 20:35 | NUR ---
RECEIVED ON A [employer] CARESCAPE R860 VENTILATOR WITH COMPRESSOR ON AND FUNCTIONING WELL PLUGGED INTO RED OUTLET TOLERATING WELL TO A PORTEX DCT #7 AIRWAY SECURED WITH A CHITRA TRACH TIE CUFF PRESSURE CHECKED NOTED AMBU BAG NOTED AT [facility] RADICAL-7 CONTINUOS PULSE OXIMETER AT BEDSIDE ON AND FUNCTIONING WELL LOW SATURATION ALARM ON AND FUNCTIONING WELL LOC AWAKE NO SOB NOTED [id number] SOUNDS RHONCHI BILATERAL WITH GOOD CHEST RISE DEEP TRACHEAL SUCTION FOR SMALL THIN YELLOW SECRETIONS AIRWAY PATENT
--- NOTE | 2017-11-02 21:37 | NUR ---
NO EVIDENCE OF PULMONARY DISTRESS NOTED AT THIS TIME GOOD CHEST RISE
[2017-11-03] VITALS: BP 111/49
--- NOTE | 2017-11-03 00:02 | NUR ---
NO EVIDENCE OF RESPIRATORY DISTRESS AT THIS TIME GOOD CHEST RISE
--- NOTE | 2017-11-03 00:05 | NUR ---
PT SEEN AWAKE GRIMACING, VITAL SIGNS STABLE, TYLENOL GIVEN VIA G-TUBE, REPOSITIONED AND OFFLOAD PRESSURE AREAS, IVF INFUSING WELL, CONTINUE TO MONITOR CLOSELY.
[2017-11-03] MEDS: DEXT 5% / NACL 0.45% 1,000 ML IV SCH ×2 (00:10→09:25)
--- NOTE | 2017-11-03 01:59 | NUR ---
RESTING COMFORTABLY NO APPARENT PULMONARY DISTRESS NOTED AT THIS TIME BREATH SOUND DIFFUSED EXP RHONCHI BILATERAL GOOD CHEST RISE DEEP TRACHEAL SUCTION FOR MODERATE THIN YELLOW [id number] AIRWAY PATENT
--- NOTE | 2017-11-03 03:37 | NUR ---
STABLE NO RESPIRATORY DISTRESS NOTED BREATH SOUNDS DIFFUSED EXP RHONCHI BILATERAL WITH GOOD CHEST RISE DEEP TRACHEAL SUCTION FOR MODERATE THIN YELLOW SECRETIONS AIRWAY PATENT SATURATION 100% ON FIO2 OF 30% TITRATED FIO2 TO 28% TAL/RN NOTIFIED
[2017-11-03 04:00] VITALS: BP 114/57
--- NOTE | 2017-11-03 04:00 | NUR ---
PT SLEEPING, OPENS EYES TO TOUCH, VITAL SIGNS STABLE, NO RESP DISTRESS NOTED, REPOSITIONED AND OFFLOAD PRESSURE AREAS, MONITORED CLOSELY.
--- NOTE | 2017-11-03 05:45 | NUR ---
NO DISTRESS NOTED GOOD CHEST RISE
--- NOTE | 2017-11-03 06:00 | NUR ---
PT SLEEPING, OPEN EYES TO TOUCH, BLOOD SUGAR CHECKED WITH 192 RESULT, COVERAGE GIVEN, NO SEIZURE EPISODE THE WHOLE SHIFT, IVF INFUSING WELL, MAINTAINED ON NPO EXCEPT MEDS, MONITORED CLOSELY.
[2017-11-03] MEDS: INSULIN LISPRO SLIDING SCALE 100 UNITS/ML VIAL SUBQ PRN ×2 (06:10→21:10)
[2017-11-03] MEDS: BLOOD GLUCOSE MONITORING 1 DEV DEV FS SCH ×4 (06:34→20:55)
[2017-11-03 06:49] LABS: BASOPHILS # (AUTO) 0.1 K/uL (0.00-0.22); EOSINOPHILS # (AUTO) 0.5 K/uL (0-0.4); EOSINOPHILS % (AUTO) 3.8 % (0.0-4.0); HEMATOCRIT 33.6 % (36-52); HEMOGLOBIN 10.6 g/dL (12.0-18.0); LYMPHOCYTES # (AUTO) 0.6 K/uL (2.0-11.5); LYMPHOCYTES % (AUTO) 4.8 % (20.5-51.1); MEAN CORPUSCULAR HEMOGLOBIN 31 pg (27-31); MEAN CORPUSCULAR HGB CONC 32 g/dL (33-37); MEAN CORPUSCULAR VOLUME 97.3 fL (80-94); MONOCYTES # (AUTO) 1.1 K/uL (0.8-1.0); MONOCYTES % (AUTO) 8.6 % (1.7-9.3); NEUTROPHILS # (AUTO) 10.9 K/uL (1.8-7.7); NEUTROPHILS % (AUTO) 81.8 % (42.2-75.2); PLATELET COUNT (AUTO) 534 K/uL (140-450); RED BLOOD CELL COUNT(AUTO) 3.45 MIL/uL (4.20-6.10); RED CELL DISTRIBUTION WIDTH 17.8 % (11.6-13.7); WHITE BLOOD COUNT (AUTO) 13.4 K/uL (4.8-10.8)
[2017-11-03 07:07] LABS: ANION GAP 15.1 (8-16); CARBON DIOXIDE 27.2 mmol/L (21-32); CREATININE 3.9 mg/dL (0.7-1.3); POTASSIUM 3.3 mmol/L (3.5-5.1)
[2017-11-03 07:15] LABS: MAGNESIUM 2.1 mg/dL (1.8-2.4); PHOSPHORUS 4.7 mg/dL (2.5-4.9)
--- NOTE | 2017-11-03 07:22 | NUR ---
PT AWAKE, NO DISTRESS NOTED, REPORT GIVEN TO SG SUTHERLAND FOR CONTINUITY OF CARE.
--- NOTE | 2017-11-03 07:23 | NUR ---
RECEIVED REPORT FROM FENCE MACHINE OPERATOR NURSE TAL AT BEDSIDE FOR CONTINUITY OF CARE. PT IS AWAKE BUT APHASIC. INTRODUCED SELF AND UPDATED BOARD. PT ON TRACH TO VENT. O2 SAT 100%. NO S/SX OF RESPIRATORY DISTRESS. WITH COLOSTOMY BAG TO L ABD. WATERY STOOL NOTED. G-TUBE CLAMPED. WITH RESTRAINTS ON BILATERAL WRIST. PULSES PALPABLE AND STRONG. SKIN NON INTACT. WITH PRESSURE ULCER TO L SACRAL. DRESSING INTACT. NO SIGNS OF DISTRESS. CALL LIGHT WITHIN REACH. WILL CONTINUE TO MONITOR.
--- NOTE | 2017-11-03 07:43 | NUR ---
RECEIVED TRACH PT WITH A PORTEX 7 TRACH ON VENT. SETTINGS AC 12, VT 400, PEEP 5 AND FIO2 28%. PT SUCTIONED OBTAINED SMALL AMOUNT OF THICK WHITE SECRETIONS, AIRWAY IS PATENT AND TRACH IS SECURE. PT OPENS HIS EYES BUT IS NOT ALERT AT THIS TIME. PT IS NOT IN ANY DISTRESS AT THIS TIME. VENT IS PLUGGED INTO A RED OUTLET WITH ALARMS ON AND FUNCTIONING. WILL CONTINUE TO MONITOR.
[2017-11-03 08:00] VITALS: BP 110/58
[2017-11-03] MEDS: LACTULOSE 20 GM/30 ML UDC GT SCH ×2 (08:31→20:55)
[2017-11-03] MEDS: LACTOBACILLUS RHAMNOSUS GG 1 EACH CAP PO SCH (08:32)
[2017-11-03] MEDS: AMIODARONE 200 MG TAB GT SCH (08:32)
[2017-11-03] MEDS: LANSOPRAZOLE 30 MG CAPDR GT SCH (08:32)
[2017-11-03] MEDS: levETIRAcetam 100 MG/ML ORASYR GT SCH ×2 (08:32→20:55)
[2017-11-03] MEDS: INSULIN LANTUS 100 UNITS/ML 10 ML VIAL SUBQ SCH (08:42)
--- NOTE | 2017-11-03 08:45 | NUR ---
PAGED DR. LLANES AND REPORTED PT'S K 3.3. WILL WAIT FOR ORDER FOR K-RIDER.
[2017-11-03] MEDS: THERAHONEY WOUND DRESSING TP SCH (09:00)
[2017-11-03] MEDS: METOPROLOL 25 MG TAB GT SCH ×2 (09:00→20:56)
[2017-11-03] MEDS: VALPROIC ACID 250 MG/5 ML UDC GT SCH ×2 (09:30→20:55)
--- NOTE | 2017-11-03 09:30 | NUR ---
ADMINISTERED SCHEDULED MEDS. NON ADMIN METOPROLOL DUE TO PT'S BP 110/58. PT TOLERATED ADMIN MEDS WELL. CHECKED SOFT WRIST RESTRAINTS. NO SKIN BREAKDOWN, PULSES PALPABLE. NO SIGNS OF INJURY. NO SIGNS OF DISTRESS. WILL CONTINUE TO MONITOR.
[2017-11-03] MEDS ORDERED: KCL 20 MEQ/WATER INJ PREMIX 100 ML IV SCH (11:00)
[2017-11-03 12:00] VITALS: BP 125/55
--- NOTE | 2017-11-03 12:39 | NUR ---
GAVE PT BED BATH, CHANGED LINENS AND GOWN. DRESSING CHANGE DONE ON L ISCHIUM. CLEANSED WITH WOUND CLEANSER, APPLIED THERA HONEY GEL AND PACKED WITH ALGINATE DRESSING. NO DRAINAGE. NO ODOR NOTED. WHEN SOFT RESTRAINTS WERE REMOVED PT WAS TRYING TO SCRATCH FACE AND BODY. GOOD CIRCULATION ON WRISTS. NO SKIN BREAKDOWN. ADMINISTERED HYDROXYZINE PRN FOR ITCHING. PT TOLERATED WELL. NO SIGNS OF DISTRESS. PT SLEEPING NOW. WILL CONTINUE TO MONITOR.
--- NOTE | 2017-11-03 13:07 | NUR ---
PT SUCTIONED OBTAINED SMALL AMOUNT OF THICK WHITE SECRETIONS, AIRWAY IS PATENT AND TRACH IS SECURE. PT IS NOT IN ANY DISTRESS AT THIS TIME. WILL CONTINUE TO MONITOR.
--- NOTE | 2017-11-03 13:10 | NUR ---
Press Operator [employer] Note: I faxed patient's medical information to [facility]. Per Ligia from [facility] , patient can go to room 111B anytime today, immigration case manager Pilar dumont. Addendum: 11/03/17 at 1316 by Karol Mcfadden SS Per Ligia, accepting physician is .
--- NOTE | 2017-11-03 14:47 | NUR ---
CHECKED ON PT IN ROOM. SUCTIONED SMALL AMOUNT OF SECRETIONS. O2 SAT 97%. NO SIGNS OF DISTRESS. GOOD CIRCULATION ON BILATERAL WRISTS. WILL CONTINUE TO MONITOR.
--- NOTE | 2017-11-03 15:30 | NUR ---
STARTED G-TUBE FEEDING. NEPRO 1.8 ELMER AT 35ML/HR. FREE WATER FLUSH 250ML Q4H. VIOLETTA SUPPLEMENT GIVEN. PT TOLERATING FEEDING WELL. 0ML RESIDUAL NOTED. HOB ELEVATED 30 DEGREES. NO SIGNS OF DISTRESS. WILL CONTINUE TO MONITOR.
[2017-11-03 16:00] VITALS: BP 116/56
--- NOTE | 2017-11-03 17:25 | NUR ---
REPOSITIONED PT TO RIGHT LATERAL. CHANGED CHUX. APPLIED Z-GUARD TO PERINEUM AND BUTTOCKS. PT TOLERATED WELL. CHANGED DRESSING TO R ARM. APPLIED VERSATEL AND NEW DRESSING. PT SLEEPING WITH NO SIGNS OF DISTRESS. O2 SAT 99%. WILL CONTINUE TO MONITOR.
--- NOTE | 2017-11-03 18:04 | NUR ---
PT SUCTIONED OBTAINED SMALL AMOUNT OF THICK WHITE SECRETIONS, AIRWAY IS PATENT AND TRACH IS SECURE. PT REMAINS ON DOCUMENTED VENT SETTINGS. VENT ALARMS REMAIN ON AND FUNCTIONING.
--- NOTE | 2017-11-03 19:30 | NUR ---
ENDORSED PT TO DRUG ENFORCEMENT AGENT NURSE CELINA AT BEDSIDE FOR CONTINUITY OF CARE. PT IN STABLE CONDITION.
--- NOTE | 2017-11-03 19:31 | NUR ---
RECEIVED REPORT FROM DAY SHIFT RN FOR CONTINUITY OF CARE. PT IS APHASIC, ON TRACH TO VENT. PT IS ABLE TO MAKE NEEDS KNOWN, ABLE TO FOLLOW SOME COMMANDS. RESPIRATIONS EVEN AND UNLABORED AT THE MOMENT. PT HAS G-TUBE AND COLOSTOMY. PT HAS 22G IV TO LEFT ARM, ASYMPTOMATIC, INTACT AND PATENT. PT HAS PRESSURE ULCER TO LEFT HIP AND INCONTINENT DERMATITIS, SEE WOUND ASSESSMENT. VITAL SIGNS WITHIN NORMAL LIMITS. PT STABLE, NO SIGNS OF DISTRESS NOTED AT THIS TIME. BED IN LOWEST POSITION, BED ALARM ON. CALL LIGHT WITHIN REACH, WILL CONTINUE TO MONITOR.
[2017-11-03 20:00] VITALS: BP 115/56
[2017-11-03] MEDS: VIT-B COMP/VIT-C/FOLIC ACID 1 TAB GT SCH (20:56)
--- NOTE | 2017-11-03 21:04 | NUR ---
PULLED BACK 50MLS OF RESIDUAL, ADMINISTERED SCHEDULED MEDICATION, PT TOLERATED WELL. FLUSHED WITH 10ML WATER BETWEEN EACH MEDICATION AND WITH 50MLS OF WATER AFTER LAST MEDICATION. PT STABLE WILL CONTINUE TO MONITOR.
[2017-11-04] VITALS: BP 106/51
--- NOTE | 2017-11-04 | NUR ---
VITAL SIGNS WITHIN NORMAL LIMITS. PT STABLE, NO SIGNS OF DISTRESS NOTED AT THIS TIME. BED IN LOWEST POSITION, BED ALARM ON. CALL LIGHT WITHIN REACH, WILL CONTINUE TO MONITOR.
--- NOTE | 2017-11-04 00:05 | NUR ---
REMOVED RESTRAINTS, PT DOING WELL WITHOUT THEM.
[2017-11-04] MEDS: DEXT 5% / NACL 0.45% 1,000 ML IV SCH (01:44)
--- NOTE | 2017-11-04 02:45 | NUR ---
SUCTIONED SMALL AMOUNT OF SPUTUM. PT STABLE, NO SIGNS OF DISTRESS NOTED AT THIS TIME. BED IN LOWEST POSITION, BED ALARM ON. CALL LIGHT WITHIN REACH, WILL CONTINUE TO MONITOR.
--- NOTE | 2017-11-04 03:30 | NUR ---
APPLIED MITTENS BECAUSE PT TRYING TO SCRATCH HIS FACE AND ARMS.
[2017-11-04 04:00] VITALS: BP 119/57
--- NOTE | 2017-11-04 05:22 | NUR ---
PT DOING WELL WITH MITTENS. PT STABLE, NO SIGNS OF DISTRESS NOTED AT THIS TIME. BED IN LOWEST POSITION, BED ALARM ON. CALL LIGHT WITHIN REACH, WILL CONTINUE TO MONITOR.
[2017-11-04] MEDS: BLOOD GLUCOSE MONITORING 1 DEV DEV FS SCH ×4 (06:13→20:18)
[2017-11-04] MEDS: INSULIN LISPRO SLIDING SCALE 100 UNITS/ML VIAL SUBQ PRN ×2 (06:14→09:11)
--- NOTE | 2017-11-04 06:20 | NUR ---
BLOOD SUGAR IS 206, ADMINISTERED 4 UNITS OF HUMALOG COVERAGE, PT TOLERATED WELL.
--- NOTE | 2017-11-04 06:46 | NUR ---
rec'd pt on carescape vent settings ac 12 vt 400 peep 5 fio2 28% alarms on and functioning properly, ambu bag hob, sxn pt small amt of clear thin secretions, b\s are coarse bilaterally, pt is trach with portex 7 and skin integrity is intact pt is sleeping with no signs of distress noted at this time
[2017-11-04 07:02] LABS: HEMATOCRIT 32.4 % (36-52); HEMOGLOBIN 10.5 g/dL (12.0-18.0); MEAN CORPUSCULAR HEMOGLOBIN 32 pg (27-31); MEAN CORPUSCULAR HGB CONC 32 g/dL (33-37); MEAN CORPUSCULAR VOLUME 97.4 fL (80-94); PLATELET COUNT (AUTO) 574 K/uL (140-450); RED BLOOD CELL COUNT(AUTO) 3.32 MIL/uL (4.20-6.10); RED CELL DISTRIBUTION WIDTH 17.8 % (11.6-13.7); WHITE BLOOD COUNT (AUTO) 15.6 K/uL (4.8-10.8)
--- NOTE | 2017-11-04 07:28 | NUR ---
ENDORSED PT TO DAY SHIFT RN FOR CONTINUITY OF CARE. PT IN STABLE CONDITION.
--- NOTE | 2017-11-04 07:35 | NUR ---
RECEIVED PT FROM HOT METAL CRANE OPERATOR NURSECELINA, PT IS AWAKE AND LYING ON THE BED, PT IS ON A TRACH TO VENT AT FIO2 OF 28 AND RATE OF 24, WITH AN IV LINE ON THE LEFT HAND G. 22, INTACT AND SALINE LOCK. PT HAS A LEFT SUBCLAVIAN HEMODIALYSIS CATHETER, INTACT AND NO BLEEDING NOTED. G-TUBE IN PLACE ON LEFT UPPER ABDOMINAL SIDE AND A COLOSTOMY BAG IN PLACE WITH A SMALL AMT OF LIQUID STOOL ON IT. SIDE RAILS ARE UP AND CALL LIGHT WITHIN REACH. FALL PRECAUTION INITIATED. PT IS APHASIC BUT OPENS EYES WHEN CALLED. RESPIRATIONS EVEN AND NO SIGN OF DISTRESS NOTED ON THE PT AND WILL CONTINUE TO MONITOR.
[2017-11-04 07:44] LABS: ANION GAP 16.8 (8-16); CARBON DIOXIDE 22.9 mmol/L (21-32); POTASSIUM 3.7 mmol/L (3.5-5.1)
[2017-11-04 07:48] LABS: EOSINOPHILS % (MANUAL) 7 % (0-4)
--- NOTE | 2017-11-04 07:49 | NUR ---
PT IS AWAKE NOTED WITH EYES OPEN, RESPIRATIONS EVEN,AT A RATE OF 21/MIN. SIDE RAILS ARE UP AND CALL LIGHT WITHIN REACH, ON A TRACH TO VENT WITH SATURATION OF 100%. BP IS 110/55, PULSE IS 72, TEMPERATURE AT 98.9. NO SIGN OF DISTRESS NOTED AND WILL CONTINUE TO MONITOR.
[2017-11-04 07:51] LABS: LYMPHOCYTES % (MANUAL) 7 % (20-46); MONOCYTES % (MANUAL) 8 % (5-12)
[2017-11-04 07:52] LABS: MAGNESIUM 1.9 mg/dL (1.8-2.4); PHOSPHORUS 4.6 mg/dL (2.5-4.9)
[2017-11-04 07:54] LABS: CREATININE 4.6 mg/dL (0.7-1.3)
--- NOTE | 2017-11-04 07:54 | NUR ---
DERRICK FROM LAB CALLED AND REPORTED THE PT'S CREATININE VALUE OF 4.6, ACKNOWLEDGED AND WILL INFORM THE MD.
[2017-11-04 08:00] VITALS: BP 125/63
--- NOTE | 2017-11-04 08:05 | NUR ---
INFORMED DR. BRADFORD OF THE PT'S CREATININE LAB RESULT, ACKNOWLEDGED.
--- NOTE | 2017-11-04 08:25 | NUR ---
vent check, airway is patent and pt is sleeping with no signs of distress noted at this time
[2017-11-04] MEDS: AMIODARONE 200 MG TAB GT SCH (08:49)
[2017-11-04] MEDS: LACTULOSE 20 GM/30 ML UDC GT SCH ×2 (08:49→20:26)
[2017-11-04] MEDS: LANSOPRAZOLE 30 MG CAPDR GT SCH (08:50)
[2017-11-04] MEDS: LACTOBACILLUS RHAMNOSUS GG 1 EACH CAP PO SCH (08:50)
[2017-11-04] MEDS: INSULIN LANTUS 100 UNITS/ML 10 ML VIAL SUBQ SCH (09:10)
[2017-11-04] MEDS: VALPROIC ACID 250 MG/5 ML UDC GT SCH ×2 (09:12→20:27)
[2017-11-04] MEDS: levETIRAcetam 100 MG/ML ORASYR GT SCH ×2 (09:13→20:26)
[2017-11-04] MEDS: METOPROLOL 25 MG TAB GT SCH ×2 (09:14→20:28)
--- NOTE | 2017-11-04 09:30 | NUR ---
PT IS ASLEEP, RESPIRATIONS EVEN, SIDE RAILS ARE UP AND CALL LIGHT WITHIN REACH. PT IS ON CONTINUOUS NEPRO FEEDING AT A RATE OF 35ML WITH 250ML OF WATER FLUSHING EVERY 4H. FEEDING PUMP WAS CHECKED AND WATER BAG WAS FILLED. PT IS TOLERATING THE FEEDING AND NO SIGN OF DISTRESS NOTED. WILL CONTINUE TO MONITOR.
[2017-11-04] MEDS: THERAHONEY WOUND DRESSING TP SCH (10:15)
--- NOTE | 2017-11-04 10:15 | NUR ---
PT IS AWAKE AND MEDICATIONS WERE GIVEN VIA G-TUBE AND PT TOLERATED IT. WOUND CARE AND DRESSING CHANGE DONE AND PT WAS CLEANED WITH THE ASSISTANCE OF THE STUDENT NURSE, PORSHA AND KENY WINTER AND PT WAS MADE COMFORTABLE ON THE BED. NO SIGN OF DISTRESS NOTED. FALL PRECAUTION INITIATED. WILL CONTINUE TO MONITOR THE PT.
--- NOTE | 2017-11-04 10:57 | NUR ---
VENT CHECK, SXN PT SMALL AMT OF CLEAR SECRETIONS, PT IS RESTING WITH NO SIGNS OF DISTRESS NOTED
[2017-11-04 12:00] VITALS: BP 110/55
--- NOTE | 2017-11-04 12:26 | NUR ---
11/04/17 RD FOLLOW UP COMPLETED PLEASE REFER TO NUTRITION PROGRESS NOTE UNDER CARE ACTIVITY FOR ESTIMATED NUTRITION NEEDS. RD RECOMMENDATIONS: 1. RECOMMEND INCREASING NEPRO TO 45 ML/HR TO BETTER MEET PATIENTS NUTRITIONAL NEEDS. -NEPRO AT 45 ML/HR WILL PROVIDE 1080 ML TOTAL VOLUME, 1944 KCAL,87 GM OF PROTEIN, AND 785 ML OF FREE WATER (ADEQUATE TO MEET ~99% OF ESTIMATED ENERGY NEEDS AND 100% OF ESTIMATED PROTEIN NEEDS). -CURRENT RATE AT 35 ML/HR ONLY MEETING ~77% OF ESTIMATED ENERGY NEEDS AND ~80% OF ESTIMATED PROTEIN NEEDS). -CONSIDER ORDERING WATER FLUSHES PER MD DISCRETION D/T PT ON HD. 2. CONTINUE 1 PKT VIOLETTA QD FOR WOUND HEALING. 3. RD TO FOLLOW-UP 2-3 DAYS, HIGH RISK SANDRA IFELDS RD
--- NOTE | 2017-11-04 13:08 | NUR ---
VENT CHECK, SXN PT MODERATE AMT OF THIN CREAM COLOR SECRETIONS, PT IS RESTING
--- NOTE | 2017-11-04 13:10 | NUR ---
RT CAME TO THE PT'S ROOM AND CHECKED THE PT. SUCTIONED AND CHECKED THE TRACH. NO SIGN OF DISTRESS NOTED ON THE PT. WILL CONTINUE TO MONITOR.
--- NOTE | 2017-11-04 15:11 | NUR ---
vent check, sxn pt large amt of cream color secretions, b\s are coarse and trach care done changed luis
--- NOTE | 2017-11-04 15:16 | NUR ---
CALLED DIALYSIS NURSEERLINDA AND ASKED WHAT TIME THE DIALYSIS WILL BE DONE TO THE PT AND ALBERT SAID THAT THE DIALYSIS NURSE WILL BE COMING IN AN HOUR FROM THIS TIME.
--- NOTE | 2017-11-04 15:43 | NUR ---
SHARAN FROM LAB CALLED AND REPORTED THE CRITICAL LAB RESULT THAT PT IS POSITIVE FOR KLEBSIELLA, ESBL AND MDRO. ACKNOWLEDGED AND WILL INFORM DR. BRADFORD ABOUT IT.
--- NOTE | 2017-11-04 15:45 | NUR ---
CALLED DR. BRADFORD AND INFORMED THAT LAB CALLED AND REPORTED THAT THE PT IS POSITIVE FOR KLEIBSELLA, ESBL AND MDRO., DR. BRADFORD ACKNOWLEDGED AND SAID THAT SHE WILL PUT AN ORDER.
[2017-11-04 16:00] VITALS: BP 108/52
--- NOTE | 2017-11-04 16:20 | NUR ---
DIALYSIS WAS STARTED TO THE PT. NO SIGN OF DISTRESS NOTED AND WILL CONTINUE TO MONITOR.
--- NOTE | 2017-11-04 16:40 | NUR ---
PT IS BEING DIALYZED, BLOOD GLUCOSE CHECK DONE AND RESULT IS 89. NO INSULIN COVERAGE NEEDED. WILL CONTINUE TO MONITOR.
--- NOTE | 2017-11-04 16:55 | NUR ---
VENT CHECK, PT RECEIVING DIALYSIS AND IS RESTING WITH NO SIGNS OF DISTRESS NOTED
--- NOTE | 2017-11-04 18:35 | NUR ---
DIALYSIS NURSE ASKED AND WAS GIVEN HEPARIN TO FLUSH THE CATHETER PORT AND TO PREVENT CLOTS.
--- NOTE | 2017-11-04 19:15 | NUR ---
ENDORSED PT TO ROUGE SIFTER NURSE, BUFFY FOR CONTINUITY OF CARE. PT IS STILL HAVING DIALYSIS AND NO SIGN OF DISTRESS NOTED. PT IS STABLE AT THIS TIME.
--- NOTE | 2017-11-04 19:16 | NUR ---
PATIENT REPORT RECEIVED FROM MORNING NURSE AT BEDSIDE. PATIENT CURRENTLY RECEIVED HEMODIALYSIS VIA LEFT UPPER CHEST REBECCA CATH. HD NURSE AT BEDSIDE. PATIENT IS TRACH TO VENT. NO SIGNS AND SYMPTOMS OF DISTRESS NOTED. IV SITE NOTED ON LEFT HAND, IV FLUID INFUSING WELL. COLOSTOMY BAG IN PLACE. BED IN LOWEST POSITION, SIDE RAILS UP AND CALL LIGHT WITHIN REACH. SEIZURE AND SAFETY PRECAUTIONS IN PLACE. WILL CONTINUE TO MONITOR.
[2017-11-04 20:00] VITALS: BP 122/55
[2017-11-04] MEDS: VIT-B COMP/VIT-C/FOLIC ACID 1 TAB GT SCH (20:27)
--- NOTE | 2017-11-04 20:45 | NUR ---
MEDICATION EDUCATION GIVEN. PATIENT VERBALIZED UNDERSTANDING. MEDICATION ADMINISTERED ORDERED. PATIENT TOLERATED WELL. WILL CONTINUE TO MONITOR
--- NOTE | 2017-11-04 20:50 | NUR ---
HEP-LOCK FLUSH ADMINISTERED BY HD NURSE DURING MORNING SHIFT
[2017-11-04] MEDS ORDERED: SULFAMETH/TRIMETH DS 800/160MG 1 TAB PO SCH (21:00)
--- NOTE | 2017-11-04 21:00 | NUR ---
LOPRESSOR HELD. DBP BELOW 60
--- NOTE | 2017-11-04 21:00 | NUR ---
MEDICATION EDUCATION GIVEN. GTUBE RESIDUAL CHECKED. NO RESIDUAL NOTED. MEDICATION ADMINISTERED ORDERED. PATIENT TOLERATED WELL. WILL CONTINUE TO MONITOR
[2017-11-04] MEDS ORDERED: MEROPENEM 500 MG VIAL IV ONE (23:25)
[2017-11-05] VITALS: BP 120/53
--- NOTE | 2017-11-05 00:24 | NUR ---
CHECKED ON PATIENT. PATIENT IS ASLEEP. NO SIGNS AND SYMPTOMS OF DISTRESS NOTED. BREATHING EVEN AND UNLABORED. PATIENT REPOSITIONED FOR COMFORT WILL CONTINUE TO MONITOR
--- NOTE | 2017-11-05 02:00 | NUR ---
CHECKED ON PATIENT. PATIENT IS ASLEEP. NO SIGNS AND SYMPTOMS OF DISTRESS NOTED. BREATHING EVEN AND UNLABORED. WILL CONTINUE TO MONITOR
--- NOTE | 2017-11-05 02:35 | NUR ---
PATIENT REPOSITIONED FOR COMFORT. PATIENT TOLERATED WELL. WILL CONTINUE TO MONITOR
[2017-11-05 04:00] VITALS: BP 134/66
--- NOTE | 2017-11-05 04:30 | NUR ---
PATIENT REPOSITIONED FOR COMFORT. PATIENT TOLERATED WELL. WILL CONTINUE TO MONITOR
[2017-11-05] MEDS: BLOOD GLUCOSE MONITORING 1 DEV DEV FS SCH ×3 (05:39→17:07)
[2017-11-05 06:02] LABS: HEMOGLOBIN 10.3 g/dL (12.0-18.0); MEAN CORPUSCULAR HEMOGLOBIN 31 pg (27-31); MEAN CORPUSCULAR HGB CONC 32 g/dL (33-37); MEAN CORPUSCULAR VOLUME 96.7 fL (80-94); PLATELET COUNT (AUTO) 468 K/uL (140-450); RED BLOOD CELL COUNT(AUTO) 3.31 MIL/uL (4.20-6.10); RED CELL DISTRIBUTION WIDTH 17.4 % (11.6-13.7); WHITE BLOOD COUNT (AUTO) 14.4 K/uL (4.8-10.8)
--- NOTE | 2017-11-05 06:28 | NUR ---
RECEIVED PT ON [place]ES[place]E ON DOCUMENTED SETTINGS ALARMS ARE ON AND AUDIBLE PTS TRACH PORTEX 7 IS SECURE BS COARSE SX MOD YELLOW PT IN HF QUIET BMV HOB VENT PLUGGED INTO RED OUTLET CONT. POX IN PLACE
[2017-11-05 06:31] LABS: ANION GAP 11.7 (8-16); CARBON DIOXIDE 30.1 mmol/L (21-32); CREATININE 2.8 mg/dL (0.7-1.3); POTASSIUM 3.8 mmol/L (3.5-5.1)
--- NOTE | 2017-11-05 07:15 | NUR ---
PATIENT REPORT GIVEN TO MORNING NURSE AT BEDSIDE FOR CONTINUITY OF CARE. PATIENT IS IN STABLE CONDITION
--- NOTE | 2017-11-05 07:16 | NUR ---
REPORT RECEIVED FROM SPECIAL WARFARE COMBATANT CREWMAN NURSE. PT SLEEPING COMFORTABLE IN BED, TRACH TO VENT, NO SOB. REVIEWED PLAN OF CARE AND ALL SAFETY MEASURES IN PLACE. NO IMMEDIATE NEEDS AT THIS TIME. WILL CONTINUE TO MONITOR.
[2017-11-05 07:22] LABS: BASOPHILS % (MANUAL) 0 % (0-2); EOSINOPHILS % (MANUAL) 5 % (0-4); LYMPHOCYTES % (MANUAL) 7 % (20-46); MONOCYTES % (MANUAL) 9 % (5-12)
[2017-11-05 07:24] LABS: MAGNESIUM 1.7 mg/dL (1.8-2.4); PHOSPHORUS 2.8 mg/dL (2.5-4.9)
--- NOTE | 2017-11-05 07:54 | NUR ---
CALLED [facility] AT [phone], PER BIRD THEY WILL CALL BACK TO CONFIRM RM#[id number] ISOLATION ROOM.
[2017-11-05 08:00] VITALS: BP 138/65
--- NOTE | 2017-11-05 08:51 | NUR ---
MORNING ASSESSMENT DONE. BILAT LUNGS CLEAR. LEFT HAND IV ACCESS SITE INTACT & PATENT. COLOSTOMY BAG INTACT WITH BROWN WATERY STOOL PRESENT. GT IN PLACE WITH CONTINUOUS FEEDING OF NEPRO @ 35ML/HR. RT HAND SWOLLEN WITH BLISTERS & OPEN SORES. PLACE PILLOW TO ELEVATE RT ARM. POSITION CHANGED. RT AT BEDSIDE. WILL CONTINUE TO MONITOR.
[2017-11-05] MEDS: THERAHONEY WOUND DRESSING TP SCH (09:00)
[2017-11-05] MEDS ORDERED: SULFAMETH/TRIMETH 400/80MG 1 TAB PO SCH (09:00)
[2017-11-05] MEDS ORDERED: MAGNESIUM OXIDE 400 MG TAB GT SCH (09:00)
[2017-11-05] MEDS ORDERED: MEROPENEM 500 MG in NACL 0.9% 50 ML IV SCH ×3 (09:00)
[2017-11-05] MEDS ORDERED: ZGUARD TP (09:13)
[2017-11-05] MEDS ORDERED: THERAHONEY WOUND DRESSING TP (09:13)
[2017-11-05] MEDS ORDERED: LACT10CA PO (09:13)
[2017-11-05] MEDS ORDERED: BAC PO (09:13)
[2017-11-05] MEDS ORDERED: MERO500P2 IV (09:13)
[2017-11-05] MEDS: INSULIN LANTUS 100 UNITS/ML 10 ML VIAL SUBQ SCH (10:01)
[2017-11-05] MEDS: LACTOBACILLUS RHAMNOSUS GG 1 EACH CAP PO SCH (10:01)
[2017-11-05] MEDS: METOPROLOL 25 MG TAB GT SCH (10:02)
[2017-11-05] MEDS: levETIRAcetam 100 MG/ML ORASYR GT SCH (10:02)
[2017-11-05] MEDS: LACTULOSE 20 GM/30 ML UDC GT SCH (10:03)
[2017-11-05] MEDS: LANSOPRAZOLE 30 MG CAPDR GT SCH (10:03)
[2017-11-05] MEDS: AMIODARONE 200 MG TAB GT SCH (10:03)
[2017-11-05] MEDS: VALPROIC ACID 250 MG/5 ML UDC GT SCH (10:03)
--- NOTE | 2017-11-05 10:13 | NUR ---
CALLED [facility], PER DUNCAN, THEY ARE WAITING FOR INFECTIOUS SURVEILLANCE OPERATOR BEFORE THEY CAN CONFIRM ROOM, THEY WILL CALL US BACK.
[2017-11-05] MEDS ORDERED: [UNRECOGNIZED DRUG - CODE] IV (11:35)
[2017-11-05 12:00] VITALS: BP 128/69
[2017-11-05] MEDS: FLUCONAZOLE 400 MG/NS PREMIX 200 ML IV SCH ×2 (13:56→17:06)
[2017-11-05] MEDS: INSULIN LISPRO SLIDING SCALE 100 UNITS/ML VIAL SUBQ PRN (13:57)
--- NOTE | 2017-11-05 15:56 | NUR ---
REPORT GIVEN TO ABILIO AT [facility]. REQUESTED REPORTS FAXED. THEY REQUEST PT TO BE SENT AFTER 6 PM. [facility] ARRANGED FOR HOME SECURITY PROFESSIONAL AT 8PM. ATTEMPTED TO CONTACT PT STRAW HAT BRIM RAISER OPERATOR. MESSAGE LEFT. AWAITING FOR TRANSPORT.
[2017-11-05 16:39] VITALS: BP 102/54
--- NOTE | 2017-11-05 18:30 | NUR ---
GAVE REPORT TO DUNCAN BETTENCOURT AT [facility]. PT TO BE PICKED UP AT 1900 FOR TRANSFER.
--- NOTE | 2017-11-05 19:10 | NUR ---
[facility] PICKED UP PT AT THIS TIME FOR TRANSPORT TO [facility]. REPORT GIVEN TO EMS. PT LEFT VIA GURNEY, TRACH TO VENT, NO SIGNS OF DISTRESS.
== END 2017-11-05 19:05 | DRG 314 ==
LOC: MED 19:15 → MTU 21:11
PROVIDERS: ADMIT General Practice; ATTEND General Practice
PROC: 5A1955Z Respiratory Ventilation, Greater than 96 Consecutive Hours (ICD-10-PCS; 2017-10-31)
PROC: 5A1D70Z Performance of Urinary Filtration, Intermittent, Less than 6 Hours Per Day (ICD-10-PCS; 2017-11-01)
PROC: 05H633Z Insertion of Infusion Device into Left Subclavian Vein, Percutaneous Approach (ICD-10-PCS; 2017-11-02)
PROC: B547ZZA Ultrasonography of Left Subclavian Vein, Guidance (ICD-10-PCS; 2017-11-02)
PROC: 05JY3ZZ Inspection of Upper Vein, Percutaneous Approach (ICD-10-PCS; principal; 2017-11-02 12:00)
PROC: 5A1D70Z Performance of Urinary Filtration, Intermittent, Less than 6 Hours Per Day (ICD-10-PCS; 2017-11-03)
DX: T82.41XA Breakdown (mechanical) of vascular dialysis catheter, initial encounter (principal); A41.9 Sepsis, unspecified organism; L89.323 Pressure ulcer of left buttock, stage 3; N17.0 Acute kidney failure with tubular necrosis; N18.6 End stage renal disease; E43 Unspecified severe protein-calorie malnutrition; R53.2 Functional quadriplegia; G93.41 Metabolic encephalopathy; L89.313 Pressure ulcer of right buttock, stage 3; D68.59 Other primary thrombophilia; J96.10 Chronic respiratory failure, unspecified whether with hypoxia or hypercapnia; E87.1 Hypo-osmolality and hyponatremia; I12.0 Hypertensive chronic kidney disease with stage 5 chronic kidney disease or end stage renal disease; Z99.2 Dependence on renal dialysis; E11.22 Type 2 diabetes mellitus with diabetic chronic kidney disease; Z93.0 Tracheostomy status; E87.8 Other disorders of electrolyte and fluid balance, not elsewhere classified; E03.9 Hypothyroidism, unspecified; R13.10 Dysphagia, unspecified; Z68.20 Body mass index [BMI] 20.0-20.9, adult; E11.51 Type 2 diabetes mellitus with diabetic peripheral angiopathy without gangrene; I95.9 Hypotension, unspecified; Y92.89 Other specified places as the place of occurrence of the external cause; B37.9 Candidiasis, unspecified; E83.42 Hypomagnesemia; E83.39 Other disorders of phosphorus metabolism; D64.9 Anemia, unspecified; Z93.3 Colostomy status; Z86.73 Personal history of transient ischemic attack (TIA), and cerebral infarction without residual deficits; Z74.01 Bed confinement status; G40.909 Epilepsy, unspecified, not intractable, without status epilepticus
CPT/HCPCS: 36415; 36600; 71045; 76705; 80048; 80053; 80202; 82140; 82150; 82550; 82553; 82607; 82728; 82746; 82803; 82948; 83036; 83540; 83605; 83690; 83735; 83880; 84100; 84134; 84436; 84439; 84443; 84479; 84484; 85025; 85045; 85610; 85730; 86886; 86900; 86901; 87040; 87070; 87075; 87081; 87186; 87205; 89220; 93005; 93925; 93970; 94002; 94003; 99285; A4649; J1450; J1642; J1644; J1815; J2001; J2185; J2543; J2704; J3010; J3370; J3480; J3490; J7030; J7060; J7620; Q0092

== ENCOUNTER 2017-12-13 07:39 | Inpatient (IN) | payer OTHER, MEDICAID ==
[~2017-12-13] VITALS: Ht 160 cm; Wt 64.0 kg
--- NOTE | 2017-12-13 07:35 | NUR ---
RECIEVED PATIENT IN ER AT 0725. ADMITTED FOR APPARENT INFECTION OF PORTACATH WITH OBSERVED REDNESS AT SITE. PATIENT WAS TRANSFERRED ONTO NEW BED AND VENT WITH NO COMPLICATIONS. PATIENT HAS A TRACH, PORTEX 7. SETTINGS ARE SIMV 450 RATE OF 10 +5 PS15 30% FIO2. SATURATIONS WERE 100%, PULSE OF 69 AND CLEAR BREATH SOUNDS. SPUTUM WAS SENT TO LAB, THICK AND YELLOW IN APPEARANCE. PATIENT WAS ALERT AND CALM.
[~2017-12-13 07:39] MED LIST: ACET160S12 GT; AMIO200T25 GT; BAC PO; D50SYR IVP; HYDR-636 GT; LACT10CA PO; LEVE100S GT; MERO500P2 IV; METO25TA GT; NEP GT; PANT40PK GT; THERAHONEY WOUND DRESSING TP; VALP250S5 GT; ZGUARD TP; [UNRECOGNIZED DRUG - CODE] IV
--- NOTE | 2017-12-13 07:39 | NUR ---
PATIENT IS A 57 YO MALE BIB EMS FROM [facility] FOR INFECTION AT [facility]. COVERED WITH OP SITE AND GAUZE. NEW REBECCA PLACED APPROX 1 INCH LATTERAL TO PREVIOUS SITE. PATIENT HAS G TUBE COLOSTOMY, AND IS VENT TO TRACH. NO IV SITE.L NON VERBAL EYES ARE OPEN BUT NO RESPONCE TO VERBAL OR PAINFUL STIMULI.
--- NOTE | 2017-12-13 07:39 | NUR ---
Dr. Yoder evaluating patient at bedside.
--- NOTE | 2017-12-13 07:39 | NUR ---
[facility], transferred to bed 10. RN evaluating patient at bedside.
[2017-12-13 07:42] VITALS: BP 122/57
[2017-12-13] MEDS ORDERED: PIPERACILLIN/TAZOBACTAM 4.5 GM in DEXTROSE 5% 100 ML IV ONE (07:45)
[2017-12-13] MEDS ORDERED: VANCOMYCIN 1,000 MG in DEXTROSE 5% 250 ML IV ONE (07:45)
--- NOTE | 2017-12-13 07:45 | NUR ---
97.9 RECTAL TEMP , ER MD KENDRICK NOTIFIED.
[2017-12-13] MEDS ORDERED: INSU100S45 SUBQ (07:55)
--- NOTE | 2017-12-13 08:28 | NUR ---
Tyler wyman in ED - 12/13/[address] at [address] Gaitan at bedside for central line placement.
--- NOTE | 2017-12-13 08:30 | NUR ---
vent settings: fio2 35 vt 450ml rate 10 flow 40 peep 5 ps 12
[2017-12-13 08:40] LABS: HEMATOCRIT 37.9 % (36-52); MEAN CORPUSCULAR HEMOGLOBIN 32 pg (27-31); MEAN CORPUSCULAR HGB CONC 32 g/dL (33-37); PLATELET COUNT (AUTO) 742 K/uL (140-450); RED BLOOD CELL COUNT(AUTO) 3.76 MIL/uL (4.20-6.10); RED CELL DISTRIBUTION WIDTH 19.5 % (11.6-13.7); WHITE BLOOD COUNT (AUTO) 28.6 K/uL (4.8-10.8)
[2017-12-13] MEDS ORDERED: LORazepam 2 MG/ML VIAL IM/IVP PRN (08:50)
[2017-12-13] MEDS ORDERED: HYDROmorphone PFS 2 MG/ML SYR IM PRN (08:55)
[2017-12-13] MEDS ORDERED: VANCOMYCIN 1,000 MG VIAL ONE (08:59)
[2017-12-13 09:00] VITALS: BP 121/54
[2017-12-13 09:04] LABS: ALBUMIN 2.2 g/dL (3.4-5.0); ANION GAP 16.1 (8-16); CARBON DIOXIDE 25.2 mmol/L (21-32); POTASSIUM 3.3 mmol/L (3.5-5.1); TOTAL BILIRUBIN 0.4 mg/dL (0.0-1.0)
[2017-12-13 09:08] LABS: LYMPHOCYTES % (MANUAL) 7 % (20-46); MONOCYTES % (MANUAL) 9 % (5-12)
[2017-12-13 09:10] LABS: EOSINOPHILS % (MANUAL) 1 % (0-4)
--- NOTE | 2017-12-13 09:24 | NUR ---
Dr. Gaitan at bedside for central line placement.
--- NOTE | 2017-12-13 10:10 | NUR ---
hep lock given by dr morgan
--- NOTE | 2017-12-13 10:25 | NUR ---
ASSISTED DR. ALVARENGA HE INSERTED A SUBCLAVIAN CATHETER. 3RD ATTEMPT WAS SATISFACTORY. SATURATIONS REMAINED AT 100% AND PULSE 20-24 THROUGHOUT PROCEDURE. [address] ALVARENGA FINISHED, PATIENT BEGAN COUGHING AND HADTO BE SUCTIONED TO CLEAR SECRETIONS. PROCEDURE WAS DONE WITHOUT ANY COMPLICATIONS AND PATIENT WENT BACK TO REST.
[2017-12-13 10:40] LABS: BILIRUBIN,URINE NEGATIVE (NEGATIVE); BLOOD, URINE 2+ (NEGATIVE); COLOR,URINE YELLOW (YELLOW); LEUKOCYTE ESTERASE ,URINE 2+ (NEGATIVE); PH,URINE 7.5 (5.0-9.0); UGLUCOSE NEGATIVE (NEGATIVE)
--- NOTE | 2017-12-13 10:45 | NUR ---
ER CALLED RT TO CHECK PATIENT IN ER VENT WAS ALARMING. WHEN CHECKED ON, HIGH PRESSURE AND HIGH RATE ALARMS WERE SOUNDING. PATIENT WAS SUCTIONED 3 TIMES DUE TO COPIOUS AMOUNTS OF SECRETIONS. PATIENT SEEMED FLUSHED AND EYES BLOODSHOT. PATIENT SEEMS RESTLESS. ABG WAS DRAWN AND ALL LIMITS BUT PO2 WERE WITHIN NORMAL. PO2 WAS [address] KENDRICK AGREED WITH RT TO INCREASE FIO2 TO 35%. PATIENT WILL CONTINUE TO BE MONITORED FOR RATE AND PRESSURE.
[2017-12-13] MEDS ORDERED: diphenhydrAMINE 50 MG/ML VIAL IVP ONE (10:50)
[2017-12-13 11:07] LABS: RBC,URINE 3-10 (FEW) /HPF (0-5); WBC,URINE 16-25 (MOD) /HPF (0-5)
[2017-12-13 11:08] LABS: NITRITE, URINE POSITIVE (NEGATIVE)
[2017-12-13 11:11] LABS: APPEARANCE,URINE SLIGHTLY CLOUDY (CLEAR); YEAST,URINE Rare /HPF (None Seen)
[2017-12-13] MEDS ORDERED: NACL 0.9% 1,000 ML IV SCH (11:24)
[2017-12-13] MEDS ORDERED: MORPHINE SULFATE 2 MG/ML SYR IVP PRN (11:25)
[2017-12-13] MEDS ORDERED: HYDROcodone/APAP 7.5/325 MG 1 TAB PO PRN (11:25)
[2017-12-13] MEDS ORDERED: DOCUSATE SODIUM 100 MG GELCAP PO PRN (11:25)
[2017-12-13] MEDS ORDERED: ONDANSETRON 4 MG/2 ML VIAL IM/IVP PRN (11:25)
[2017-12-13] MEDS ORDERED: PANTOPRAZOLE 40 MG INJ VIAL IVP SCH (12:00)
--- NOTE | 2017-12-13 12:22 | NUR ---
TRANSPORTED FROM ER BED 10 TO TELE 122B WITH NO INCIDENCE. PATIENT WAS BAGGED AND PROPERLY VENTILATED. PATIENT WAS RETURNED TO SAME SETTINGS. VENT PLUG WAS PLUGGED INTO RED OUTLET AND ALARMS ARE ON AND AUDIBLE. PATIENT'S O2 SATURATIONS ARE 100% AND PULSE AT 83.
--- NOTE | 2017-12-13 12:48 | NUR ---
Patient appears to be resting comfortably in bed. Vital Signs within normal limits. Respirations even and unlabored.
[2017-12-13 12:56] LABS: PROTHROMBIN TIME 12.2 secs (10.8-13.4)
[2017-12-13] MEDS ORDERED: VANCOMYCIN PER PHARMACY MC PRN (13:10)
[2017-12-13 13:11] VITALS: BP 119/65
[2017-12-13 13:20] LABS: CHOL/HDL RATIO 2.5 (1-4.5); MAGNESIUM 2.2 mg/dL (1.8-2.4); PHOSPHORUS 3.9 mg/dL (2.5-4.9); THYROID STIMULATING HORMONE 7.38 uIU/mL (0.34-3.74)
--- NOTE | 2017-12-13 14:00 | NUR ---
Patient will be admitted to care of . Admited to tele floor. Will go to room 122-b . Belongings list completed. Report to shayy nicolas.
[2017-12-13 14:10] VITALS: BP 135/66
--- NOTE | 2017-12-13 14:10 | NUR ---
PATIENT TRANSFERRED FROM ER. TRACH TO [facility]. AWAKE TO NAME. EYES TRACKING, DOES NOT FOLLOW COMMANDS. BLE CONTRACTED. PATIENT HAS CENTRAL LINE TO [facility] TRIPLE LUMEN, PLACED TODAY BY ED MD. CHARI FERNANDEZ IN PLACE, DRESSING CHANGED AT BEDSIDE, ABSCESS NOTED PROXIMAL TO REBECCA LINE. PATIENT HAS COLOSTOMY IN PLACE, MODERATE LOOSE STOOL NOTED. ARELLANO CATH IN PLACE TO GRAVITY IN MINIMAL AMOUNT IN PURULENT COLOR. LEFT HIP WOUND NOTED MINIMAL DRAINAGE NOTED. SCABBING NOTED RIGHT WRIST, INTACT. BRUISING NOTED LEFT HEEL. PATIENT ASSISTED IN CHANGING OF POSITIONS. OFFLOADED PRESSURE AREAS. SKIN KEPT CLEAN AND DRY.
[2017-12-13] MEDS ORDERED: DEXTROSE 50% 50 ML SYR IVP PRN ×2 (14:15→14:30)
[2017-12-13] MEDS ORDERED: NON-FORMULARY ITEM (Insulin Aspart* (Novolog*) 3 UNITS) SUBQ PRN (14:30)
[2017-12-13] MEDS ORDERED: Z-GUARD PASTE TP PRN (14:30)
[2017-12-13 16:00] VITALS: BP 130/68
--- NOTE | 2017-12-13 16:00 | NUR ---
PATIENT SEEN BY DR. MEDINA AT BEDSIDE. PATIENT TO HAVE HD TODAY AND CONSULTED FOR DIALYSIS CATH REPLACEMENT.
[2017-12-13] MEDS: BLOOD GLUCOSE MONITORING 1 DEV DEV FS SCH ×2 (17:25→21:44)
[2017-12-13] MEDS: DEXT 5% / NACL 0.9% 500 ML IV SCH (17:25)
[2017-12-13] MEDS: INSULIN LISPRO SLIDING SCALE 100 UNITS/ML VIAL SUBQ PRN (17:30)
--- NOTE | 2017-12-13 18:20 | NUR ---
PATIENT STARTED ON HD AT BEDSIDE. NO ACUTE DISTRESS NOTED.
--- NOTE | 2017-12-13 18:50 | NUR ---
PATIENT SEEN BY DR. JOHNATHAN MD TO PLACE NEW CATH TOMORROW. NO ACUTE DISTRESS NOTED.
--- NOTE | 2017-12-13 19:37 | NUR ---
ENDORSED PLAN OF CARE TO SG VICTOR AT PT BEDSIDE. PATIENT CONTINUED ON HD. NO ACUTE DISTRESS NOTED.
--- NOTE | 2017-12-13 19:38 | NUR ---
RECEIVED BEDSIDE REPORT FROM DAY SHIFT NURSE PAMELA RN, PT STABLE, NO DISTRESS NOTED, CENTRAL LINE TO R UPPER CHEST TRIPLE LUMEN, RUNNING D5NS @ 20ML/HR, INFUSING WELL, PT TRACH TO VENT, FIO2 30%, PEEP 5, TV 450, NO SOB NOTED, ARELLANO IN PLACE DRAINING SMALL AMOUNT OF CLOUDY URINE, COLOSTOMY BAG IN PLACE DRAINING SOFT BROWN COLORED FECES, G TUBE IN PLACE, 5ML RESIDUAL NOTED, PT NPO EXCEPT MEDS, DIALYSIS NURSE AT BEDSIDE, PT CURRENTLY IS HAVING DIALYSIS, INITIAL ASSESSMENT DONE, ALL SAFETY PRECAUTION MET, WILL CONTINUE TO MONITOR.
[2017-12-13 20:00] VITALS: BP 94/51
[2017-12-13] MEDS ORDERED: VALPROIC ACID GT SCH (21:00)
[2017-12-13] MEDS ORDERED: PIPER/TAZO 2.25GM/D5W PREMIX 50 ML IV SCH (21:00)
[2017-12-13] MEDS ORDERED: METOPROLOL TARTRATE GT SCH (21:00)
[2017-12-13] MEDS ORDERED: NON-FORMULARY ITEM (Pantoprazole Sodium (Protonix) 40 MG) GT SCH (21:00)
[2017-12-13] MEDS: METOPROLOL 25 MG TAB PO SCH (21:00)
--- NOTE | 2017-12-13 21:00 | NUR ---
DIALYSIS FINISHED, PER DIALYSIS NURSE PRICE 1400ML FLUID REMOVED, PT BP IS CURRENTLY 99/57, PT RESTING, NO DISTRESS NOTED, CALL LIGHT WITHIN REACH, WILL CONTINUE TO MONITOR.
[2017-12-13] MEDS ORDERED: CEFEPIME 1,000 MG in DEXTROSE 5% 50 ML IV SCH (21:15)
[2017-12-13] MEDS: VALPROIC ACID 250 MG/5 ML UDC GT SCH (21:36)
[2017-12-13] MEDS: VIT-B COMP/VIT-C/FOLIC ACID 1 TAB GT SCH (21:37)
[2017-12-13] MEDS: levETIRAcetam 100 MG/ML ORASYR GT SCH (21:37)
--- NOTE | 2017-12-13 21:44 | NUR ---
DUE MEDICATION ADMINISTERED, PT TOLERATED WELL, NO DISTRESS NOTED, CALL LIGHT WITHIN REACH, WILL CONTINUE TO MONITOR. PT BLOOD SUGAR 173, INSULIN HELD, PT NPO, NO TUBE FEEDING AND ONLY ON 20ML/HR D5NS, METOPROLOL ORDERED HELD, PT BP HAS BEEN RUNNING LOW SINCE DIALYSIS CURRENTLY AT 100/53, NOTIFIED DR. BRADFORD REGARDING HOLDING INSULIN AND METOPROLOL STATED UNDERSTANDING.
[2017-12-14] VITALS: BP 111/46
--- NOTE | 2017-12-14 01:40 | NUR ---
NOTIFIED DR. BRADFORD REGARDING PT HAS ACCELERATED JUNCTIONAL RHYTHM ON TELE MONITORING, STATED UNDERSTANDING AND WILL ORDER STAT EKG.
[2017-12-14 04:00] VITALS: BP 101/47
--- NOTE | 2017-12-14 04:10 | NUR ---
CHECKED ON PT, PT RESTING, NO DISTRESS NOTED, CALL LIGHT WITHIN REACH, WILL CONTINUE TO MONITOR.
[2017-12-14] MEDS: PIPER/TAZO 2.25GM/D5W PREMIX 50 ML IV SCH ×3 (05:37→21:30)
[2017-12-14 06:24] LABS: T4 (THYROXINE) 7.8 ug/dL (4.5-12.0)
[2017-12-14 06:27] LABS: HEMATOCRIT 30.5 % (36-52); HEMOGLOBIN 9.3 g/dL (12.0-18.0); MEAN CORPUSCULAR HEMOGLOBIN 31 pg (27-31); MEAN CORPUSCULAR HGB CONC 31 g/dL (33-37); MEAN CORPUSCULAR VOLUME 101.6 fL (80-94); PLATELET COUNT (AUTO) 593 K/uL (140-450); RED CELL DISTRIBUTION WIDTH 19.4 % (11.6-13.7); WHITE BLOOD COUNT (AUTO) 20.8 K/uL (4.8-10.8)
[2017-12-14] MEDS ORDERED: LANSOPRAZOLE 30 MG CAPDR GT SCH (06:30)
[2017-12-14] MEDS: BLOOD GLUCOSE MONITORING 1 DEV DEV FS SCH ×4 (06:43→21:38)
[2017-12-14 06:44] LABS: ANION GAP 17.6 (8-16); CARBON DIOXIDE 24.2 mmol/L (21-32); CREATININE 3.2 mg/dL (0.7-1.3); POTASSIUM 3.8 mmol/L (3.5-5.1)
[2017-12-14] MEDS: INSULIN LISPRO SLIDING SCALE 100 UNITS/ML VIAL SUBQ PRN ×3 (06:47→21:49)
--- NOTE | 2017-12-14 07:00 | NUR ---
TALKED TO DR. DURHAM REGARDING PT CENTRAL LINE LEAKING, STATED UNDERSTANDING AND CHECKED THE PT WITH DR. ALVARENGA. STATED TO SEE IF ITS STILL LEAKING. NOTIFIED REGARDING PT BLOOD SUGAR 378, STATED TO GIVE INSULIN PER SLIDING SCALE AND RECHECK PT BLOOD SUGAR IN AN HOUR, WILL ENDORSED TO DAY SHIFT NURSE.
--- NOTE | 2017-12-14 07:30 | NUR ---
ENDORSED PT TO DAY SHIFT NURSE BENIGNO BETTENCOURT, PT STABLE, NO DISTRESS NOTED, CALL LIGHT WITHIN REACH.
--- NOTE | 2017-12-14 07:35 | NUR ---
RECEIVED REPORT FROM ENZYME CHEMIST NURSE, PT IS RESTING IN BED, SEMI FOWLERS POSITION, RIGHT LATERAL SIDE, PT IS NON--VERBAL, PT IS ON A TRACH TO VENT, PT HAS ARELLANO CATHETER IN PLACE, NO URINE NOTED AT THIS TIME, COLOSTOMY BAG IN PLACE, CENTRAL LINE ON RIGHT IJ X 3 LUMEN, DRESSING IS SOILED WITH SANGUINOUS DRAINAGE, LUMENS ARE FLUSHING BUT THEIR IS NO BLOOD RETURN, WILL NOTIFY DR. ALVARENGA. PT HAS G-TUBE IN PLACE, STAGE 4 PRESSURE ULCER ON LEFT BUTTOCKS WITH TUNNELING AND UNDERMINING, LEFT HEEL REDNESS, LEFT KNEE DTI, PT HAS BILATERAL UPPER EXT. CONTRACTURES, DISCUSSED PLAN OF CARE WITH PT, PT UNABLE TO VERBALIZE UNDERSTANDING, SAFETY/FALL/SEIZURE PRECAUTIONS ARE IN PLACE, CALL LIGHT IS WITHIN REACH, WILL CONTINUE MONITOR.
--- NOTE | 2017-12-14 07:35 | NUR ---
RECIVED PT ON VENT WITH SETTINGS CHARTED BREATH SOUNDS PRESENT BILAT WITH SCATTERD RALES SXN PT WITH MOD AMT MENDEZ SECS THICC TRACH SITE SECURE CHANGED TRACH SPONGE AMBU BAG AT BEDSIDE VENT PLUGGED INTO RED OUTLET
[2017-12-14 07:56] LABS: PHOSPHORUS 3.4 mg/dL (2.5-4.9)
[2017-12-14 08:00] VITALS: BP 103/55
[2017-12-14 08:14] LABS: LYMPHOCYTES % (MANUAL) 5 % (20-46); MONOCYTES % (MANUAL) 10 % (5-12)
--- NOTE | 2017-12-14 08:46 | NUR ---
PATIENT HAS BEEN SCREENED AND CATEGORIZED HIGH NUTRITION RISK. PATIENT WILL BE SEEN WITHIN 1-2 DAYS OF ADMISSION. 12/14/[address]
[2017-12-14] MEDS: PANTOPRAZOLE 40 MG INJ VIAL IVP SCH (09:00)
[2017-12-14] MEDS ORDERED: NON-FORMULARY ITEM (Lactobacillus Rhamnosus Gg (Culturelle Health & Wellness) 1 EACH) PO SCH (09:00)
[2017-12-14] MEDS: METOPROLOL 25 MG TAB PO SCH (09:00)
[2017-12-14] MEDS: ACETAMINOPHEN 325 MG TAB PO PRN (09:04)
[2017-12-14] MEDS: LACTOBACILLUS RHAMNOSUS GG 1 EACH CAP GT SCH (09:04)
[2017-12-14] MEDS: AMIODARONE 200 MG TAB GT SCH (09:04)
[2017-12-14] MEDS: VALPROIC ACID 250 MG/5 ML UDC GT SCH ×2 (09:05→21:30)
[2017-12-14] MEDS: levETIRAcetam 100 MG/ML ORASYR GT SCH ×2 (09:06→21:30)
--- NOTE | 2017-12-14 09:21 | NUR ---
CENTRAL LINE NOT WORKING WILL HOLD OFF ON PROTONIX IVP. PT SCHEDULED TO HAVE REPLACEMENT OF CENTRAL LINE/HEMODIALYSIS ACCESS DONE TODAY.
--- NOTE | 2017-12-14 10:34 | NUR ---
WOUND CARE EVALUATION NOTES: REASON FOR EVALUATION: PRESSURE INJURY SKIN ASSESSMENT DONE ON THIS 57Y/O MALE PATIENT FROM [facility] TO [facility], WITH INITIAL DIAGNOSIS OF INFECTED LEFT REBECCA CATH SITE AND LEFT HIP PI STAGE 4. PAST MEDICAL HISTORY INCLUDE HYPERTENSION, DM, ESRD ON HD, PRESSURE ULCER INJURIES. PT. WAS ADMITTED TO [facility] ON 11/05/[address] MANN. ALL ABOVE INFORMATION WAS OBTAINED FROM THE ADMISSION H&P. LABS ARE WBC 20.8, H/H 9.3/30.5, GLUCOSE 386 AND ALBUMIN 2.2. PATIENT IS AWAKE, SKIN WARM TO TOUCH, TOENAILS ARE SHORT AND THICKENED, NO EDEMA, NO HAIR GROWTH, BLE ARE DRY AND FLAKY, BILATERAL PEDAL PULSES PRESENT AND NORMAL. TRACH TO VENT. NEEDS MAX ASSISTANCE IN TURNING. PLAN OF CARE AND PRESSURE PREVENTIVE MEASURES DISCUSSED WITH PRIMARY RN. INTEGUMENTARY: -TRACH STOMA EDITH-SKIN INTACT -LEFT UPPER CHEST TOWARD THORACIC AREA S/P REBECCA CATH SITE ABSCESS WITH 0.3X0.3 CM OPEN AREA, MODERATE AMOUNT OF PURULENT DRAINAGE, NO ODOR. EDITH-WOUND SKIN INTACT. -RIGHT IJ CENTERAL LINE DRESSING OOZING OUT OF BLOOD DR. ALVARENGA/ DR. DURHAM NOTIFIED. -LEFT UQ ABDOMEN GT SITE, STOMA SITE DRY AND CLEAN, REDNESS WITH SKIN INTACT -LUQ ABDOMEN COLOSTOMY FUNCTIONING WITH MODERATE AMOUNT SOLID STOOL OUTPUT. -LEFT HIP PRESSURE INJURY STAGE 4, [id number] WITH UNDERMINING 9 OLOCK TO 12 OCLOCK AND DEEPEST TO 12 OCLOCK AT 3.2 CM, WOUND BED IS CLEAN ,PINK IN COLOR, 100% GRANULATING TISSUE, NO ODOR AFTER CLEANING, SMALL AMOUNT SANGUINOUS DRAINAGE, EDITH WOUND SKIN INTACT, WOUND EDGE IS WELL DEFINED -RIGHT BUTTOCK OLD HEALED SCAR -RIGHT/LEFT MEDIAL KNEE BLANCHABLE REDNESS -LEFT MEDIAL HEEL PRESSURE INJURY DTI 3X0.5 CM, 100% LIGHT MAROON IN COLOR, SKIN INTACT. - SACRALCOCCYX BLANCHABLE REDNESS RECOMMENDATIONS: -APPLY DRY DRESSING TO S/P REBECCA CATH SITE ABSCESS AND SURGEON TO CONSULT S/P REBECCA CATH SITE ABSCESS -CLEANSE LEFT HIP WITH WOUND CARE SOLUTION, PAT DRY, APPLY THERAHONEY SHEET, COVER WITH DRY DRESSING QD AND PRN IF SOILING -APPLY SKIN PREP TO RIGHT/LEFT MEDIAL KNEE, LEFT MEDIAL HEEL AND SACRALCOCCYX AREAS BID AND RETAIL MARKETING MANAGER -TURN AND REPOSITION PATIENT Q 2H OFFLOAD LEFT AND RIGHT/LEFT HIPS -ASSESS AND MONITOR SKIN CONDITION DURING POSITION CHANGE, PLEASE PAY ATTENTION TO KNEE AND HEELS -HEEL RAISER TO BILATERAL HEELS -OFFLOAD BILATERAL HEELS BY PLACING PILLOWS UNDER CALVES AT ALL TIMES, UNLESS OTHERWISE CONTRAINDICATED -PRESSURE REDISTRIBUTION SURFACE THERAPY -KEEP SKIN CLEAN AND DRY AT ALL TIMES. COMORBIDITIES RELATED TO SKIN BREAKS: INFECTION, DM, KIDNEY FAILURE WITH HD, LOW ALBUMIN LEVEL AND HOB ELEVATED THE MAJORY OF TIMES DUE TO MEDICAL REASONS. RECOMMENDATIONS DISCUSSED WITH PRIMARY RN WILL FOLLOW UP PATIENT Q7-10 DAYS AND PRN. PLEASE CONTACT WOUND CARE NURSE FOR ANY QUESTIONS AND CHANGES IN SKIN CONDITION.
[2017-12-14 12:00] VITALS: BP 99/44
--- NOTE | 2017-12-14 12:00 | NUR ---
ATTEMPTED TWICE TO START IV ON LEFT HAND. IV START WAS UNSUCCESSFUL. SURGERY NOTIFIED.
[2017-12-14] MEDS ORDERED: BUPIVACAINE-MPF 0.5% 30 ML VIAL INJ ONE (12:11)
--- NOTE | 2017-12-14 12:20 | NUR ---
ASKED CHARGE NURSE TO START A NEW IV. NEW IV STARTED ON LEFT WRIST, #22. PT TOLERATED WELL.
[2017-12-14] MEDS ORDERED: PROPOFOL 200 MG/20 ML VIAL IV ONE (12:21)
[2017-12-14] MEDS ORDERED: fentaNYL 0.05 MG/ML VIAL ONE (12:24)
--- NOTE | 2017-12-14 12:30 | NUR ---
PT TAKEN OFF UNIT TAKEN TO OR FOR PROCEDURE. PT STABLE BEFORE LEAVING
[2017-12-14] MEDS ORDERED: PIPERACILLIN/TAZOBACTAM 2.25 GM VIAL IV ONE (12:34)
[2017-12-14] MEDS ORDERED: HYDROmorphone 1 MG/ML AMP IVP PRN (12:50)
[2017-12-14] MEDS ORDERED: ONDANSETRON 4 MG/2 ML VIAL IVP PRN (12:50)
[2017-12-14] MEDS: THERAHONEY WOUND DRESSING TP SCH (13:00)
[2017-12-14] MEDS ORDERED: BLOOD GLUCOSE MONITORING 1 DEV DEV FS SCH (13:00)
--- NOTE | 2017-12-14 14:00 | NUR ---
1221 CALL PLACED TO SUREKHA LUEVANO METAL BONDING CRIB ATTENDANT AT [facility] [phone] TO VERIFY POLST FORM THAT HAS CONFLICTING INSTRUCTIONS. 1329 SUREKHA CALLED BACK AND STATED THAT PT IS NOT CONSERVED AND THAT THE POLST MADE AT [facility] WAS DONE STRICTLY FOR THAT FACILITY AND THAT SHE IS NOT AWARE OF ANY DOCUMENTS TO INDICATE PT IS DNR. STATED THAT THE PATIENTS MEDICAL DECISIONS ARE MADE BY THE TREATING MEDICAL TEAM AND THAT [facility] LEAVES THE MEDICAL DECISIONS UP TO THE PHYSICIANS AND ARE TO BE IN THE PATIENTS BEST INTEREST. NO CONSENTS REQUIRED FROM [facility].
--- NOTE | 2017-12-14 14:10 | NUR ---
PT RETURNED TO UNIT, PT IS ON TRACH TO VENT, PT IS S/P I & D OF LEFT ANTERIOR CHEST WALL ABSCESS AND RIGHT FEMORAL CENTRAL LINE/HEMODIALYSIS ACCESS CATHETER PLACEMENT. PT CURRENT BLOOD PRESSURE IS 105/51, HR:75 O2:100%. OR NURSE LEATHA IS AT AT BEDSIDE. NO S/S OF RESPIRATORY DISTRESS OR DISCOMFORT NOTED. WILL CONTINUE TO MONITOR.
--- NOTE | 2017-12-14 14:42 | NUR ---
1445 PT TRANSFERRED BACK TO ROOM FROM OR VIA AMBU BAG NO ILL EFFECTS NOTED PLACED BACK ON VENT WITH SETTINGS CHARTED BREATH SOUNDS PRESENT BILAT SXN PT WIT MOD AMT OFF WHITE SECS TRACH COLLAT STICHED TO PTS NECK AT THIS TIME WILL CONTINUE TO MONITOR PT ON VENT
[2017-12-14] MEDS: DEXT 5% / NACL 0.9% 500 ML IV SCH (15:00)
--- NOTE | 2017-12-14 15:30 | NUR ---
PATIENT BLOOD PRESSURE DECREASED TO 79/33. DR. VERDUGO NOT IN THE OFFICE, DR. KINGSLEY WAS NOTIFIED AND HE SAID HE WOULD CALL HER ON HER CELL PHONE TO LET HER KNOW.
--- NOTE | 2017-12-14 15:38 | NUR ---
12/14/17 RD INITIAL ASSESSMENT COMPLETED PLEASE REFER TO NUTRITION ASSESSMENT UNDER CARE ACTIVITY FOR ESTIMATED NUTRITIONAL NEEDS. 1. CONTINUE NPO MEDICALLY APPROPRIATE 2. WHEN PATIENT IS MEDICALLY STABLE CONSIDER ADVANCING TO TUBE FEED. RECOMMENDATIONS FOR TUBE FEED IS NEPRO CARBSTEADY AT 40 ML/HR. WATER FLUSH 150 ML Q4H. -THIS WILL PROVIDE 960 ML OF VOLUME, 1728 KCAL, 77 GM OF PROTEIN, WHICH MEETS 100% OF ESTIMATED KCAL NEEDS AND 105% OF ESTIMATED PROTEIN NEEDS. 3. RD TO FOLLOW-UP 2-3 DAYS, HIGH RISK ROSA FENTON, [place]
[2017-12-14 16:00] VITALS: BP 126/59
[2017-12-14] MEDS ORDERED: NACL 0.9% 500 ML IV SCH (16:00)
[2017-12-14] MEDS: CHLORHEXADINE GLUC 2% CLOTH TP SCH (16:19)
--- NOTE | 2017-12-14 16:28 | NUR ---
Panelbeater Note: Per Lig[facility] from [facility] , patient is on a 7 day bed hold and is one of their snf patients. She stated patient does not have any family members and [facility] salesperson [employer] is Geovanna Galvez .
--- NOTE | 2017-12-14 16:30 | NUR ---
RECEIVED PHONE CALL FROM DR. VERDUGO SHE WAS CALLING TO ASK ABOUT THE PATIENT'S BLOOD PRESSURE. I LET HER KNOW THE PATIENT'S BLOOD PRESSURE HAD GONE UP TO 108/60. PER DR. VERDUGO GIVE 500 ML BOLUS IF PATIENT'S BLOOD PRESSURE DROPS, BUT CHECK WITH AUDITOR INTERNAL IF ITS OKAY TO GIVE BOLUS FIRST.
[2017-12-14] MEDS: MUPIROCIN CA NASAL 2% 1GM TUBE NS SCH (16:40)
--- NOTE | 2017-12-14 17:13 | NUR ---
continued to monitor pt on vent with settings as charted breath sounds present bilat clear at this time sxn pt with min ant beth secs ambu bag at bedside vent plugged into red outlet
--- NOTE | 2017-12-14 18:00 | NUR ---
CALLED ALBERT TO LET HER KNOW THE PATIENT HAD DIALYSIS ORDERED FOR TOMORROW.
--- NOTE | 2017-12-14 19:25 | NUR ---
ENDORSED PT TO TOOL DESIGN DRAFTSPERSON NURSE FOR CONTINUITY OF CARE. PT STABLE AT THIS TIME.
--- NOTE | 2017-12-14 19:25 | NUR ---
RECEIVED PATIENT ON VENT SETTINGS: SIMV RATE 12 VT 500 PS 12 PEEP 5 FIO2 30%. PATIENT IS TRACH'D WITH A PORTEX SIZE 7 THAT IS STITCHED TO THE SKIN OF THE NECK. STOMA AREA AND STITCHING ARE INTACT WITH NO REDNESS OR VISIBLE IRRITATION. GAUZE/DRESSING IS CLEAN AND DRY. B/S: DIMINISHED BILATERALLY. PATIENT ASLEEP DURING VENT CHECK. AMBU BAG AT BEDSIDE. VENT BRAKES ARE ON AND PLUGGED INTO RED OUTLET. WILL CONTINUE TO MONITOR.
--- NOTE | 2017-12-14 19:26 | NUR ---
RECEIVED BEDSIDE REPORT FROM DAY SHIFT NURSE BENIGNO RN, PT STABLE, NO DISTRESS NOTED, CENTRAL LINE/HEMODIALYSIS PORT ON THE R FEMORAL, PATENT, INTACT, INFUSING D5NS @ 20ML/HR, IV TO L HAND 22G PATENT, INTACT, SL, PT ON TRACH TO VENT WITH FIO2 OF 30%, PEEP 5, NO SOB NOTED, G TUBE IN PLACE, 5ML RESIDUAL NOTED, COLOSTOMY BAG IN PLACE DRAINING BROWN SOFT FECES, ARELLANO CATH IN PLACE, SMALL AMOUNT OF CLOUDY URINE NOTED, PT ON HEMODIALYSIS, DOES NOT PRODUCE A LOT OF URINE. DRESSINGS IN PLACE, CLEAN DRY AND INTACT, SEIZURE PRECAUTION IN PLACE, BED ALARM ON, INITIAL ASSESSMENT DONE, ALL SAFETY PRECAUTION MET, WILL CONTINUE TO MONITOR. Addendum: 12/14/17 at 2254 by Merary Emery RN PT STILL ON MITTEN RESTRAINTS, PT TRIES TO SCRATCH FACE AND PULL VENT TUBE.
--- NOTE | 2017-12-14 19:50 | NUR ---
TUBE FEEDING STARTED AT 10ML/HR, NEPRO, WITH H2O FLUSH OF 100ML Q4H, INITIAL RESIDUAL 5ML, PT TOLERATED WELL, NO DISTRESS NOTED, CALL LIGHT WITHIN REACH, WILL RECHECK RESIDUAL IN ONE HOUR.
[2017-12-14 20:00] VITALS: BP 137/63
--- NOTE | 2017-12-14 21:00 | NUR ---
RECHECKED PT RESIDUAL CURRENTLY AT 50ML, PT TOLERATING TUBE FEEDING WELL, WILL CONTINUE TO INCREASE TUBE FEEDING RATE 20ML/HR, WILL RECHECK RESIDUAL IN ONE HOUR.
[2017-12-14] MEDS: NACL 0.9% 1,000 ML IV SCH (21:30)
[2017-12-14] MEDS: VIT-B COMP/VIT-C/FOLIC ACID 1 TAB GT SCH (21:30)
--- NOTE | 2017-12-14 21:49 | NUR ---
DUE MEDICATION ADMINISTERED, PT TOLERATED WELL, NO DISTRESS NOTED, CALL LIGHT WITHIN REACH, WILL CONTINUE TO MONITOR.
--- NOTE | 2017-12-14 22:10 | NUR ---
CHECKED ON PT, AND CHECKED PT RESIDUAL, PT HAS VERY SMALL AMOUNT OF RESIDUAL, UNABLE TO MEASURE, WILL CONTINUE TUBE FEEDING AT 30ML/HR PER ORDER. PT TOLERATED WELL, CALL LIGHT WITHIN REACH, WILL CONTINUE TO MONITOR.
--- NOTE | 2017-12-14 23:24 | NUR ---
VENT CHECK AND ASSESS PATIENT. PATIENT AWAKE AND RN AT BEDSIDE. AIRWAY IS PATENT AND TRACH SECURE WITH TRACH TIES. B/S: CLEAR BILATERALLY. SUCTION PATIENT AND RECEIVED SCANT TO SMALL BLOOD TINGED SECRETIONS.
--- NOTE | 2017-12-14 23:55 | NUR ---
CHECKED ON PT, PT IS AWAKE, STILL TRYING TO SCRATCH HIS FACE, PT STABLE, NO DISTRESS NOTED, RECHECK RESIDUAL, SMALL AMOUNT OF RESIDUAL NOTED, PT TOLERATING FEEDING WELL, NO DISTRESS NOTED, CALL LIGHT WITHIN REACH, WILL CONTINUE TO MONITOR.
[2017-12-15] VITALS: BP 121/52
[2017-12-15] MEDS: THERAHONEY WOUND DRESSING TP SCH ×2 (00:56→12:27)
--- NOTE | 2017-12-15 00:56 | NUR ---
CHANGED PT DRESSING, PT TOLERATED WELL, NO DISTRESS NOTED, REPOSITION PT, CALL LIGHT WITHIN REACH, WILL CONTINUE TO MONITOR.
--- NOTE | 2017-12-15 02:10 | NUR ---
CHECKED ON PT, PT RESTING, NO DISTRESS NOTED, CALL LIGHT WITHIN REACH, WILL CONTINUE TO MONITOR.
[2017-12-15 04:00] VITALS: BP 123/54
[2017-12-15] MEDS: PIPER/TAZO 2.25GM/D5W PREMIX 50 ML IV SCH ×2 (05:17→12:10)
--- NOTE | 2017-12-15 05:21 | NUR ---
VENT CHECK, PATIENT ASSESSMENT AND TRACH CARE COMPLETED. PATIENT ASLEEP BUT WOKE WHEN AUSCULTATED. B/S: COARSE CRACKLES IN THE UPPER LOBES. SUCTIONED PATIENT AND RECEIVED SMALL, WHITE, THIN SECRETIONS. CHANGED TRACH GAUZE/DRESSING WITH RN AT BEDSIDE. STOMA IS CLEAN, HEALTHY AND INTACT WITH LITTLE DRAINAGE. CHANGED HME. INNER CANNULA WAS NOT CHANGED IT WAS CLEAN AND PATENT.
[2017-12-15] MEDS: INSULIN LISPRO SLIDING SCALE 100 UNITS/ML VIAL SUBQ PRN ×4 (05:29→20:41)
[2017-12-15] MEDS: BLOOD GLUCOSE MONITORING 1 DEV DEV FS SCH ×4 (05:29→21:34)
--- NOTE | 2017-12-15 05:29 | NUR ---
CHECKED PT BLOOD SUGAR 446, NOTIFIED DR. BRADFORD REGARDING PT BLOOD SUGAR, STATED TO GIVE 10 UNITS OF HUMALOG, ADMINISTERED 10 UNITS OF HUMALOG, PT STABLE, NO DISTRESS NOTED, CALL LIGHT WITHIN REACH, WILL CONTINUE TO MONITOR.
[2017-12-15 07:01] LABS: HEMATOCRIT 30.3 % (36-52); HEMOGLOBIN 9.1 g/dL (12.0-18.0); MEAN CORPUSCULAR HEMOGLOBIN 31 pg (27-31); MEAN CORPUSCULAR HGB CONC 30 g/dL (33-37); MEAN CORPUSCULAR VOLUME 103.7 fL (80-94); PLATELET COUNT (AUTO) 565 K/uL (140-450); RED BLOOD CELL COUNT(AUTO) 2.92 MIL/uL (4.20-6.10); WHITE BLOOD COUNT (AUTO) 18.6 K/uL (4.8-10.8)
--- NOTE | 2017-12-15 07:16 | NUR ---
ENDORSED PT TO DAY SHIFT NURSE FLORENCIA RN, PT STABLE, NO DISTRESS NOTED, CALL LIGHT WITHIN REACH.
--- NOTE | 2017-12-15 07:17 | NUR ---
RECEIVED REPORT FROM MORTICIAN SUPPLIES SALES REPRESENTATIVE RN. PATIENT IS NON-VERBAL, AND IS TRACH TO VENT. HAS NO SIGNS AND SYMPTOMS OF ACUTE DISTRESS NOTED AT THIS TIME. PATIENT HAS COLOSTOMY BAG, IT IS INTACT. PT HAS G-TUBE CONNECTED TO FEEDING PUMP WITH RATE OF 30 ML/HR. HAS ARELLANO CATHETER DRAINING TO GRAVITY. HAS RIGHT FEMORAL COMBO CENTRAL LINE. SALINE LOCK AT THIS TIME. CARDIAC TECHNICIAN HERE SETTING UP FOR DIALYSIS. INFORMED PATIENT OF PLAN OF CARE. BED IN LOWEST POSITION, FALL AND SEIZURE PRECAUTIONS IN PLACE, SIDE RAILS UP X3,CALL LIGHT WITHIN REACH. WILL CONTINUE TO MONITOR.
[2017-12-15 07:24] LABS: MAGNESIUM 2.1 mg/dL (1.8-2.4); PHOSPHORUS 5.3 mg/dL (2.5-4.9)
[2017-12-15 07:40] LABS: ANION GAP 23.1 (8-16); CARBON DIOXIDE 18.2 mmol/L (21-32); EOSINOPHILS % (MANUAL) 13 % (0-4); LYMPHOCYTES % (MANUAL) 3 % (20-46); MONOCYTES % (MANUAL) 2 % (5-12); POTASSIUM 3.3 mmol/L (3.5-5.1)
[2017-12-15 07:43] LABS: CREATININE 4.3 mg/dL (0.7-1.3)
--- NOTE | 2017-12-15 07:55 | NUR ---
INFORMED DR DURHAM THAT LAB CALLED ME WITH CRITICAL RESULTS. GLUCOSE IS 482. INFORMED HER THAT THIS WENT ALONG WITH THE BLOOD GLUCOSE CHECK THAT RESULTED IN 446 AND ORDER TO DELIVERY SUPERVISOR RN HAD COVERED PATIENT WITH HUMALOG. NO NEW ORDERS AT THIS TIME. INFORMED HER THAT CREATININE IS 4.3. PATIENT IS CURRENTLY RECEIVING DIALYSIS SO NO NEW ORDERS AT THIS TIME. WILL CONTINUE TO MONITOR. PATIENT.
[2017-12-15 08:00] VITALS: BP 108/43
[2017-12-15] MEDS: METOPROLOL 25 MG TAB PO SCH ×2 (09:00→21:00)
[2017-12-15] MEDS: AMIODARONE 200 MG TAB GT SCH (09:00)
--- NOTE | 2017-12-15 09:14 | NUR ---
PT SUCTIONED OBTAINED SMALL AMOUNT OF THICK WHITE SECRETIONS, AIRWAY IS PATENT AND TRACH IS SECURE. WILL CONTINUE TO MONITOR.
[2017-12-15] MEDS ORDERED: INSULIN LANTUS 100 UNITS/ML 10 ML VIAL SUBQ SCH (09:20)
[2017-12-15] MEDS: levETIRAcetam 100 MG/ML ORASYR GT SCH ×2 (09:51→20:42)
[2017-12-15] MEDS: PANTOPRAZOLE 40 MG INJ VIAL IVP SCH (09:51)
[2017-12-15] MEDS: VALPROIC ACID 250 MG/5 ML UDC GT SCH ×2 (09:51→20:42)
[2017-12-15] MEDS: LACTOBACILLUS RHAMNOSUS GG 1 EACH CAP GT SCH (09:51)
--- NOTE | 2017-12-15 10:15 | NUR ---
HEEL SEAT POUNDER CHANGED PATIENTS CENTRAL LINE DRESSING.
--- NOTE | 2017-12-15 11:10 | NUR ---
CLINICAL EXERCISE SPECIALIST FINISHED. STATED SHE REMOVED 2L FROM PATIENT. HAS HAS NO SIGNS AND SYMPTOMS OF ACUTE DISTRESS NOTED AT THIS TIME. WILL CONTINUE TO MONITOR.
[2017-12-15 11:49] VITALS: BP 133/60
--- NOTE | 2017-12-15 12:55 | NUR ---
CHANGED PATIENTS DRESSING ON LEFT HIP. PT TOLERATED WELL. WILL CONTINUE TO MONITOR.
[2017-12-15] MEDS ORDERED: VANCOMYCIN 1GM/DEXT 5% PREMIX 200 ML IV SCH (15:00)
--- NOTE | 2017-12-15 15:17 | NUR ---
PT SUCTIONED OBTAINED SMALL AMOUNT OF THIN WHITE SECRETIONS, AIRWAY IS PATENT AND TRACH IS SECURE. PT NOT IN ANY DISTRESS AT THIS TIME.
[2017-12-15 16:00] VITALS: BP 143/57
--- NOTE | 2017-12-15 16:15 | NUR ---
PATIENTS TEMPERATURE IS 100.5. COOLING MEASURES ARE IN PLACE. WILL ADMINISTER TYLENOL. PATIENT HAS NO SIGNS AND SYMPTOMS OF ACUTE DISTRESS NOTED AT THIS TIME.
[2017-12-15] MEDS: MUPIROCIN CA NASAL 2% 1GM TUBE NS SCH (16:32)
[2017-12-15] MEDS: CHLORHEXADINE GLUC 2% CLOTH TP SCH (16:32)
[2017-12-15] MEDS: ACETAMINOPHEN 325 MG TAB PO PRN (16:44)
[2017-12-15] MEDS: LEVOFLOXACIN 500 MG/D5W PREMIX 100 ML IV SCH (16:44)
--- NOTE | 2017-12-15 17:36 | NUR ---
PT REMAINS ON DOCUMENTED VENT SETTINGS. PT SUCTIONED OBTAINED SMALL AMOUNT OF THIN WHITE SECRETIONS, AIRWAY IS PATENT AND TRACH IS SECURE. VENT ALARMS REMAIN ON AND FUNCTIONING.
--- NOTE | 2017-12-15 17:45 | NUR ---
PATIENTS TEMPERATURE IS 98.6.
--- NOTE | 2017-12-15 19:28 | NUR ---
ENDORSED PATIENT TO GEAR CUTTING MACHINE SET UP OPERATOR RN FOR CONTINUITY OF CARE. PATIENT IN STABLE CONDITION.
--- NOTE | 2017-12-15 19:30 | NUR ---
RECEIVED REPORT FROM DAY SHIFT NURSE. PT IN BED. PT IS NON VERBAL. TRACH TO VENT. NO RESP DISTRESS NOTED. PT HAS DRESSING TO LEFT CHEST, CLEAN, DRY AND INTACT. G-TUBE IN PLACE WITH FEEDING AT 30 ML/HR. PT HAS COLOSTOMY BAG, IT IS INTACT. ARELLANO CATH IN PLACE WITH SMALL AMOUNT OF CLEAR YELLOW URINE IN THE BAG. DRESSING TO LEFT BUTTOCK, CLEAN, DRY AND INTACT. PT HAS RIGHT FEMORAL COMBO CENTRAL LINE, INTACT. IV FLUIDS NS @20 ML/HR INFUSING WELL. PT HAS LEFT MEDIAL HEEL DTI, HEEL PROTECTORS IN PLACE. REDNESS TO KNEES NOTED. SEIZURE AND FALL PRECAUTION IN PLACE.
--- NOTE | 2017-12-15 19:55 | NUR ---
CHECKED G-TUBE RESIDUAL, 20 ML. HUNG NEW BAG OF FEEDING NEPHRO AT 30 ML/HR, H2O FLUSH 100 ML Q4HRS. ASPIRATION PRECAUTION IN PLACE.
[2017-12-15 20:00] VITALS: BP 108/53
--- NOTE | 2017-12-15 20:10 | NUR ---
RECEIVED ON A CARESCAPE R860 VENTILATOR PLUGGED INTO RED OUTLET TOLERATING WELL WITHOUT INCIDENT TO A PORTEX DCT #7 AIRWAY SECURED WITH A CHITRA TRACH TIE CUFF PRESSURE CHECKED NOTED AMBU BAG NOTED AT [facility] RADICAL-7 CONTINUOUS PULSE OXIMETRY AT BEDSIDE ON AND FUNCTIONING WELL LOW SATURATION ALARM SET AT 92% LOC AWAKE AND ALERT "MOUTHING WORDS" BREATH SOUNDS CLEAR BILATERAL WITH GOOD CHEST RISE AND AERATION THROUGHOUT PULMONARY ORELLANA AIRWAY PATENT
[2017-12-15] MEDS: NACL 0.9% 1,000 ML IV SCH (20:25)
[2017-12-15] MEDS: VIT-B COMP/VIT-C/FOLIC ACID 1 TAB GT SCH (20:42)
--- NOTE | 2017-12-15 21:00 | NUR ---
DR. BRADFORD MADE AWARE OF PT'S BP 108/53. MD ORDERED TO HOLD METOPROLOL 25 MG DUE FOR 2100 HRS. PT'S BLOOD SUGAR 233, 4 UNITS OF HUMALOG SUBQ ADMINISTERED.
--- NOTE | 2017-12-15 21:40 | NUR ---
PT WAS CLEANED AND CHANGED. EMPTIED COLOSTOMY BAG. TURNED AND REPOSITIONED Q2HRS. PT KEPT DRY AND COMFORTABLE. NO S/S OF PAIN OR SOB NOTED.
--- NOTE | 2017-12-15 21:50 | NUR ---
PT TRIED TO PULL OUT HIS TRACH. DR. JIMENEZ MADE AWARE AND SHE'LL RE-ORDER MITTEN RESTRAINTS.
--- NOTE | 2017-12-15 22:38 | NUR ---
STABLE NO EVIDENCE OT RESPIRATORY DISTRESS NOTED GOOD CHEST RISE
--- NOTE | 2017-12-15 23:17 | NUR ---
NO APPARENT RESPIRATORY DISTRESS NOTED GOOD CHEST RISE
--- NOTE | 2017-12-15 23:40 | NUR ---
PT AWAKE. PT TOLERATING FEEDING WELL. NO S/S OF RESP DISTRESS. NO S/S OF PAIN. SAFETY, ASPIRATION AND SEIZURE PRECAUTION IN PLACE.
[2017-12-16] VITALS: BP 122/59
[2017-12-16] MEDS: THERAHONEY WOUND DRESSING TP SCH ×2 (00:46→14:50)
--- NOTE | 2017-12-16 01:39 | NUR ---
AWAKE IRRITABLE "WAVING HANDS ABOVE HEAD" GOOD CHEST RISE DEEP TRACHEAL SUCTION FOR MODERATE SEMI THICK PALE YELLOW SECRETIONS AIRWAY PATENT
--- NOTE | 2017-12-16 02:20 | NUR ---
PT RESTING IN BED WITH EYES CLOSED. NO S/S OF RESP DISTRESS. IVF INFUSING WELL. PT TOLERATING FEEDING WELL. FALL, ASPIRATION AND SEIZURE PRECAUTION IN PLACE.
--- NOTE | 2017-12-16 03:48 | NUR ---
NO DISTRESS NOTED GOOD CHEST RISE
[2017-12-16 04:00] VITALS: BP 135/55
--- NOTE | 2017-12-16 04:55 | NUR ---
PT AWAKE. PT KEPT DRY AND COMFORTABLE. NO S/S RESP OF DISTRESS.
--- NOTE | 2017-12-16 05:30 | NUR ---
STABLE NO APPARENT RESPIRATORY DISTRESS NOTED GOOD CHEST RISE AIRWAY PATENT
[2017-12-16] MEDS: INSULIN LISPRO SLIDING SCALE 100 UNITS/ML VIAL SUBQ PRN ×4 (05:47→20:47)
[2017-12-16] MEDS: ACETAMINOPHEN 325 MG TAB PO PRN ×2 (05:49→21:58)
--- NOTE | 2017-12-16 05:50 | NUR ---
BLOOD SUGAR CHECKED 416. DR. BRADFORD MADE AWARE AND ORDERED TO GIVE 10 UNITS OF HUMALOG SUBQ. CHECKED PT'S TEMP 100.4. TYLENOL 650 MG VIA G-TUBE GIVEN. Addendum: 12/16/17 at 0603 by Delilah Claudio RN COOLING MEASURES IN PLACE. WILL CONTINUE TO MONITOR PT'S TEMP.
[2017-12-16] MEDS: BLOOD GLUCOSE MONITORING 1 DEV DEV FS SCH ×4 (06:00→20:42)
--- NOTE | 2017-12-16 06:46 | NUR ---
REC'D PT ON CARESCAPE VENT SETTINGS SIMV 12 VT 500 PEEP 5 PS 12 FIO2 30% ALARMS ON AND AUDIBLE AND VENT IS PLUGGED INTO RED OUTLET, NO TX GIVEN AT THIS TIME, B\S ARE CLEAR BILATERALLY, SXN PT SMALL AMT OF THIN YELLOW SECRETIONS, PT IS TRACH WITH PORTEX 7 AND SKIN INTEGRITY IS INTACT AMBU BAG IS AT SIDE OF VENT PT IS SLEEPING WITH NO SIGNS OF DISTRESS NOTED
--- NOTE | 2017-12-16 06:48 | NUR ---
RECHECKED TEMP 98.7. NO S/S OF PAIN. NO S/S OF RESP DISTRESS.
--- NOTE | 2017-12-16 07:15 | NUR ---
ENDORSED PT TO DAY SHIFT NURSE. PT IN STABLE CONDITION.
--- NOTE | 2017-12-16 07:16 | NUR ---
REPORT RECEIVED FROM MDM DEVELOPER NURSE STANISLAV PT RESTING QUIETLY IN BED WITH EYES OPEN, RESP EVEN UNLABORED WITH TRACH TO VENT, SKIN WARM DRY COLOR WNL, PLAN OF CARE REVIEWED, ALL SAFETY MEASURES IN PLACE, NO IMMEDIATE NEEDS AT THIS TIME, WILL CONTINUE TO MONITOR.
[2017-12-16 08:00] VITALS: BP 114/55
[2017-12-16 08:08] LABS: ANION GAP 15.4 (8-16); CARBON DIOXIDE 23.1 mmol/L (21-32); CREATININE 3.3 mg/dL (0.7-1.3)
[2017-12-16 08:10] LABS: MAGNESIUM 1.7 mg/dL (1.8-2.4)
[2017-12-16 08:13] LABS: POTASSIUM 2.5 mmol/L (3.5-5.1)
[2017-12-16] MEDS ORDERED: INSULIN LANTUS 100 UNITS/ML 10 ML VIAL SUBQ ONE (08:15)
--- NOTE | 2017-12-16 08:58 | NUR ---
vent check, airway is patent and pt is sleeping
[2017-12-16] MEDS ORDERED: INSULIN LANTUS 100 UNITS/ML 10 ML VIAL SUBQ SCH ×3 (09:00→10:15)
[2017-12-16 09:25] LABS: HEMATOCRIT 30.1 % (36-52); HEMOGLOBIN 9.6 g/dL (12.0-18.0); MEAN CORPUSCULAR VOLUME 101.2 fL (80-94); RED BLOOD CELL COUNT(AUTO) 2.97 MIL/uL (4.20-6.10); WHITE BLOOD COUNT (AUTO) 15.3 K/uL (4.8-10.8)
[2017-12-16 09:26] LABS: MEAN CORPUSCULAR HEMOGLOBIN 32 pg (27-31); MEAN CORPUSCULAR HGB CONC 32 g/dL (33-37); PLATELET COUNT (AUTO) 711 K/uL (140-450); RED CELL DISTRIBUTION WIDTH 18.2 % (11.6-13.7)
[2017-12-16] MEDS: AMIODARONE 200 MG TAB GT SCH (09:50)
[2017-12-16] MEDS: LACTOBACILLUS RHAMNOSUS GG 1 EACH CAP GT SCH (09:50)
[2017-12-16] MEDS: METOPROLOL 25 MG TAB PO SCH ×2 (09:51→20:53)
[2017-12-16] MEDS: levETIRAcetam 100 MG/ML ORASYR GT SCH ×2 (09:52→20:43)
[2017-12-16] MEDS: VALPROIC ACID 250 MG/5 ML UDC GT SCH ×2 (09:53→20:44)
[2017-12-16] MEDS: PANTOPRAZOLE 40 MG INJ VIAL IVP SCH (09:54)
[2017-12-16] MEDS: EPOETIN ALFA 10,000 UNITS/ML VIAL SUBQ SCH (09:55)
[2017-12-16] MEDS: INSULIN LANTUS 100 UNITS/ML 10 ML VIAL SUBQ SCH (09:59)
[2017-12-16 11:01] LABS: EOSINOPHILS % (MANUAL) 8 % (0-4); LYMPHOCYTES % (MANUAL) 4 % (20-46); MONOCYTES % (MANUAL) 4 % (5-12)
--- NOTE | 2017-12-16 11:05 | NUR ---
vent check, sxn pt small amt of yellow secretions, pt is sleeping
[2017-12-16 12:00] VITALS: BP 135/50
--- NOTE | 2017-12-16 12:15 | NUR ---
DR SARAVIA AT BEDSIDE
[2017-12-16 12:23] LABS: FOLIC ACID > 20.00 ng/mL (>3.0)
--- NOTE | 2017-12-16 12:50 | NUR ---
12/16/17 RD FOLLOW UP COMPLETED REFER TO NUTRITION PROGRESS NOTE UNDER CARE ACTIVITY FOR ESTIMATED NEEDS. RD RECOMMENDATIONS: 1. WHEN PATIENT IS MEDICALLY ABLE CONSIDER ADVANCING TF TO GOAL RATE 40 ML/HR WITH NEPRO. FREE WATER FLUSH PER MD 2/2 RENAL. PROVIDES DAILY: 960ML, 1728 KCAL, 77 GM PROTEIN; MEETS PT ESTIMATED KCAL NEEDS AND PROTEIN NEEDS. 2. RD TO FOLLOW-UP 2-3 DAYS, HIGH RISK ANTHONY LEWIS RD, CNSC
--- NOTE | 2017-12-16 13:22 | NUR ---
VENT CHECK, SXN PT SMALL AMT OF YELLOW SECRETIONS, PT IS SLEEPING WITH NO SIGNS OF DISTRESS NOTED
--- NOTE | 2017-12-16 14:00 | NUR ---
DRESSINGS CHANGED TO L CHEST I&D SITE AND L HIP. PT REPOSITIONED. NO S/S OF ACUTE DISTRESS NOTED AT THIS TIME, RESTING COMFORTABLY. SAFETY MEASURES IN PLACE WILL CONTINUE TO MONITOR.
[2017-12-16] MEDS: MUPIROCIN CA NASAL 2% 1GM TUBE NS SCH (15:23)
[2017-12-16] MEDS: CHLORHEXADINE GLUC 2% CLOTH TP SCH (15:24)
--- NOTE | 2017-12-16 15:39 | NUR ---
vent check, sxn pt large amt of yellow secretions trach care done changed trach gauze, inner cannula and smith, pt has two stitches on both sides of trach
[2017-12-16 16:00] VITALS: BP 106/61
--- NOTE | 2017-12-16 17:18 | NUR ---
VENT CHECK, PT RESTING WITH NO SIGNS OF DISTRESS NOTED
--- NOTE | 2017-12-16 19:18 | NUR ---
REPORT ENDORSED TO PRODUCTION PLANNER SCHEDULER NURSE VALERY. PT COMFORTABLE SLEEPING. SAFETY MEASURES IN PLACE. NO S/S OF ACUTE DISTRESS NOTED AT THIS TIME.
--- NOTE | 2017-12-16 19:19 | NUR ---
REPORT RECEIVED FROM AM NURSE AT BEDSIDE. PT IN STABLE CONDITION. AAOX1. BOARD UPDATED. IV SITE L HAND 22G SL AND RIGHT FEMORAL COMBO CATH ABLE TO DO DIALYSIS AND FLUIDS PATENT AND INTACT. SKIN WARM, DRY, AND NOT INTACT DUE TO WOUND ON THE LEFT HIP PRESSURE ULCER. LEFT HEEL DTI, AND LEFT UPPER CHEST SURGICAL WOUND. PT HAS ARELLANO DRAINING PROPERLY. VENT TO TRACH FIO2 30, PEEP 5, RR 14. GTUBE RUNNING TUBE FEEDING AT 30ML/HR WITH 100ML FLUSH. PT HAS COLOSTOMY. RESTRAINT WITH ORDER EXPIRING AT 2200 TONIGHT. BED LOCKED IN LOW POSITION. CALL JUAREZ WITHIN REACH. SEIZURE PRECAUTION. SAFETY PRECAUTION IN PLACE.
[2017-12-16 20:00] VITALS: BP 122/54
[2017-12-16] MEDS: NACL 0.9% 1,000 ML IV SCH (20:25)
--- NOTE | 2017-12-16 20:42 | NUR ---
DEPAKENE, KEPPRA, NEPHROVITE GIVEN THROUGH GTUBE. PT TOLERATED WELL. METOPROLOL HELD DUE TO DECREASED DBP OF 54. TEMPERATURE OF 100. COOLING MEASURES IN PLACE. RESIDUAL OF GTUBE FEEDING 10ML.
[2017-12-16] MEDS: VIT-B COMP/VIT-C/FOLIC ACID 1 TAB GT SCH (20:45)
--- NOTE | 2017-12-16 21:10 | NUR ---
CHANGED FEEDING. CHANGED TUBING. TIMED AND DATED.
[2017-12-16 21:13] LABS: TRANSFERRIN 127 mg/dL (200-370)
[2017-12-16 21:14] LABS: FERRITIN 464 ng/mL (30 - 400)
--- NOTE | 2017-12-16 21:58 | NUR ---
TEMPERATURE REASSESSED. TEMP OF 101.2. TYL GIVEN FOR FEVER. PT TOLERATED WELL.
--- NOTE | 2017-12-16 23:30 | NUR ---
TEMPERATURE REASSESSED AFTER GIVING TYL. 98.3. VS STABLE. NO S/S OF DISTRESS NOTED. WILL CONTINUE TO MONITOR.
[2017-12-17] VITALS (7 sets, daily range): BP systolic 129–154; BP diastolic 65–72
--- NOTE | 2017-12-17 01:00 | NUR ---
DRESSING CHANGE ON SURGICAL LEFT UPPER CHEST. DRESSING CHANGE ON LEFT HIP PRESSURE ULCER. RAÚLONEY APPLIED.
[2017-12-17] MEDS: THERAHONEY WOUND DRESSING TP SCH ×2 (01:03→13:05)
--- NOTE | 2017-12-17 03:00 | NUR ---
PT SLEEPING COMFORTABLY. NO S/S OF DISTRESS NOTED. WILL CONTINUE TO MONITOR.
--- NOTE | 2017-12-17 05:20 | NUR ---
BS 92. NO INSULIN COVERAGE NEEDED. WILL CONTINUE TO MONITOR.
[2017-12-17] MEDS: BLOOD GLUCOSE MONITORING 1 DEV DEV FS SCH ×4 (05:22→20:51)
--- NOTE | 2017-12-17 06:39 | NUR ---
rec'd pt on carescape vent setting [id number] peep 5 ps 12 fio2 30% alarms on and audible and ambu bag is at side of vent and vent is plugged into red outlet, sxn pt small amt of yellow secretions b\s are clear bilaterally, no hhn indicated at this time, pt is trach with portex 7 with two stitches in placed at side of trach, skin integrity is intact and pt is sleeping
--- NOTE | 2017-12-17 07:20 | NUR ---
REPORT GIVEN TO CHARGE NURSE AT BEDSIDE. PT IN STABLE CONDITION.
--- NOTE | 2017-12-17 08:00 | NUR ---
RECEIVED PT FROM PM NURSE. PT ABLE TO OPEN EYES BUT UNABLE TO FOLLOW COMMANDS. TRACH TO VENT WITH SETTING FIO2 =30%,TV 500, RR 12, PEEP 5. NO S/S OF RESPIRATORY DISTRESS NOTED. PT HAS IV TO RIGHT FEMORAL AND LEFT HAND #22.SITE INTACT AND PATENT. PT HAS ARELLANO CATH BY GRAVITY, SMALL AMOUNT OF URINE NOTED,. PT ALSO HAS OSTOMY BAG. SKIN NONINTACT, SEE WOUND ASSESSMENT. MITTEN TO BOTH HANDS. WILL CONTINUE TO MONITOR PT.
[2017-12-17 08:12] LABS: HEMATOCRIT 30.2 % (36-52); HEMOGLOBIN 9.7 g/dL (12.0-18.0); MEAN CORPUSCULAR HEMOGLOBIN 31 pg (27-31); MEAN CORPUSCULAR HGB CONC 32 g/dL (33-37); MEAN CORPUSCULAR VOLUME 97.7 fL (80-94); PLATELET COUNT (AUTO) 397 K/uL (140-450); RED BLOOD CELL COUNT(AUTO) 3.09 MIL/uL (4.20-6.10); RED CELL DISTRIBUTION WIDTH 18.5 % (11.6-13.7); WHITE BLOOD COUNT (AUTO) 15.6 K/uL (4.8-10.8)
[2017-12-17] MEDS: VALPROIC ACID 250 MG/5 ML UDC GT SCH ×2 (08:19→20:28)
[2017-12-17] MEDS: LACTOBACILLUS RHAMNOSUS GG 1 EACH CAP GT SCH (08:20)
[2017-12-17] MEDS: levETIRAcetam 100 MG/ML ORASYR GT SCH ×2 (08:20→20:28)
[2017-12-17] MEDS: AMIODARONE 200 MG TAB GT SCH (08:20)
[2017-12-17] MEDS: PANTOPRAZOLE 40 MG INJ VIAL IVP SCH (08:24)
[2017-12-17 08:26] LABS: BASOPHILS % (MANUAL) 0 % (0-2); EOSINOPHILS % (MANUAL) 4 % (0-4); LYMPHOCYTES % (MANUAL) 10 % (20-46); MONOCYTES % (MANUAL) 10 % (5-12)
[2017-12-17] MEDS: METOPROLOL 25 MG TAB PO SCH ×2 (08:35→20:28)
[2017-12-17] MEDS: INSULIN LANTUS 100 UNITS/ML 10 ML VIAL SUBQ SCH ×2 (08:35→09:22)
[2017-12-17 08:37] LABS: CARBON DIOXIDE 24.8 mmol/L (21-32); POTASSIUM 2.8 mmol/L (3.5-5.1)
[2017-12-17 08:38] LABS: CREATININE 4.2 mg/dL (0.7-1.3); MAGNESIUM 1.8 mg/dL (1.8-2.4); PHOSPHORUS 3.8 mg/dL (2.5-4.9)
--- NOTE | 2017-12-17 08:40 | NUR ---
DIALYSIS NURSE AT BEDSIDE.
--- NOTE | 2017-12-17 08:59 | NUR ---
VENT CHECK, NO SXN NEEDED AIRWAY IS PATENT AND PT IS RECEIVING DIALYSIS
[2017-12-17] MEDS ORDERED: KCL 20 MEQ/WATER INJ PREMIX 100 ML IV SCH (09:00)
--- NOTE | 2017-12-17 09:00 | NUR ---
DUE MEDS GIVEN, PT TOLERATED WELL.
--- NOTE | 2017-12-17 10:35 | NUR ---
DIALYSIS IN PROCESS.
--- NOTE | 2017-12-17 11:03 | NUR ---
VENT CHECK, SXN PT NO RETURN OF SECRETIONS, PT STILL RECEIVING DIALYSIS
[2017-12-17] MEDS: INSULIN LISPRO SLIDING SCALE 100 UNITS/ML VIAL SUBQ PRN ×2 (11:42→16:39)
--- NOTE | 2017-12-17 11:45 | NUR ---
dialysis done, total output 1 L
--- NOTE | 2017-12-17 13:17 | NUR ---
vent check, pt is sleeping with no signs of distress noted pt is done with dialysis
[2017-12-17] MEDS ORDERED: VANCOMYCIN PER PHARMACY MC PRN ×2 (13:20)
[2017-12-17] MEDS ORDERED: VANCOMYCIN 1GM/DEXT 5% PREMIX 200 ML IV SCH (14:00)
--- NOTE | 2017-12-17 15:26 | NUR ---
vent check, airway is patent and trach care done
--- NOTE | 2017-12-17 16:35 | NUR ---
FINGER BS CHECKED 171, INSULIN 2 UNITS COVERAGE GIVEN.
[2017-12-17] MEDS: CHLORHEXADINE GLUC 2% CLOTH TP SCH (16:40)
[2017-12-17] MEDS: LEVOFLOXACIN 500 MG/D5W PREMIX 100 ML IV SCH (16:40)
[2017-12-17] MEDS: MUPIROCIN CA NASAL 2% 1GM TUBE NS SCH (16:48)
--- NOTE | 2017-12-17 16:58 | NUR ---
VENT CHECK, SXN PT SMALL AMT OF YELLOW SECRETIONS, CHANGED TRACH GAUZE
--- NOTE | 2017-12-17 19:05 | NUR ---
REPORT RECEIVED FROM AM NURSE AT BEDSIDE. PT IN STABLE CONDITION. AAOX1. BOARD UPDATED. PT TRACH TO MECHANICAL VENT. VENT SETTINGS AT VT 500, PEEP 5, RR 14, FIO2 30%. SUCTION AT BEDSIDE SPUTUM CREAMY YELLOW COLOR. PT ON SEIZURE PRECAUTIONS. PT HAS ORDER FOR MITTEN RESTRAINTS WITH ASSESSMENTS EVERY 2 HOURS. PT HAS COLOSTOMY DRAINING PROPERLY. ARELLANO CATH DRAINING PROPERLY. IV SITE L HAND 22G SL. CENTRAL LINE AND HD COMBO CATH R FEMORAL. GTUBE FEEDING AT 30ML/HR WITH 100ML FLUSH. HD DONE TODAY, 1L WAS TAKEN OUT. SKIN WARM, DRY, AND NOT INTACT DUE TO SURGICAL WOUND ON LEFT UPPER CHEST, LEFT HIP PRESSURE ULCER, HEEL DTI, LEFT KNEE BLANCHABLE REDNESS. BED LOCKED IN LOW POSITION. CALL JUAREZ WITHIN REACH. SAFETY MEASURES IN PLACE.
[2017-12-17] MEDS: VIT-B COMP/VIT-C/FOLIC ACID 1 TAB GT SCH (20:28)
--- NOTE | 2017-12-17 20:28 | NUR ---
DEPAKENE, KEPPRA, METOPROLOL, NEPHROVITE GIVEN THROUGH GTUBE. PT TOLERATED WELL. BS 116 TAKEN. NO INSULIN COVERAGE NEEDED.
[2017-12-17] MEDS: NACL 0.9% 1,000 ML IV SCH (20:34)
--- NOTE | 2017-12-17 20:45 | NUR ---
PT COUGHING. SXN DONE. PT TOLERATED WELL. YELLOW CREAMY SECRETIONS.
--- NOTE | 2017-12-17 22:00 | NUR ---
CHANGED TO NEW FEEDING AT 2200. LINE CHANGED. TIME DATED AND INITIALED. NEW IRRIGATION BOTTLE TIMED AND DATED. NEW IRRIGATION TRAY. LINES ALL CHECKED. IV L HAND 22G EXPIRES ON 12/18 AT 1500.
[2017-12-18 01:00] VITALS: BP 135/99
[2017-12-18] MEDS: THERAHONEY WOUND DRESSING TP SCH ×2 (01:00→13:42)
--- NOTE | 2017-12-18 01:00 | NUR ---
WOUND CARE DONE ON SURGICAL WOUND LEFT UPPER CHEST. LEFT HIP THERAHONEY USED.
--- NOTE | 2017-12-18 02:40 | NUR ---
PT SLEEPING COMFORTABLY IN BED. NO S/S OF DISTRESS NOTED. BREATHING WNL AND UNLABORED ON A VENT. WILL CONTINUE TO MONITOR.
[2017-12-18 04:00] VITALS: BP 125/60
--- NOTE | 2017-12-18 04:25 | NUR ---
PT LAYING BED AWAKE. NO S/S OF DISTRESS NOTED. WILL CONTINUE TO MONITOR.
[2017-12-18] MEDS: BLOOD GLUCOSE MONITORING 1 DEV DEV FS SCH ×4 (05:12→20:19)
--- NOTE | 2017-12-18 05:12 | NUR ---
BS TAKEN. BS 99. NO INSULIN COVERAGE NEEDED.
[2017-12-18 06:35] LABS: HEMATOCRIT 30.3 % (36-52); HEMOGLOBIN 9.6 g/dL (12.0-18.0); MEAN CORPUSCULAR HEMOGLOBIN 32 pg (27-31); MEAN CORPUSCULAR HGB CONC 32 g/dL (33-37); PLATELET COUNT (AUTO) 445 K/uL (140-450); RED BLOOD CELL COUNT(AUTO) 3.06 MIL/uL (4.20-6.10); RED CELL DISTRIBUTION WIDTH 18.5 % (11.6-13.7); WHITE BLOOD COUNT (AUTO) 15.8 K/uL (4.8-10.8)
[2017-12-18 06:59] LABS: ANION GAP 12.4 (8-16); CARBON DIOXIDE 26.8 mmol/L (21-32); POTASSIUM 4.2 mmol/L (3.5-5.1)
[2017-12-18 07:03] LABS: MAGNESIUM 1.6 mg/dL (1.8-2.4); PHOSPHORUS 2.8 mg/dL (2.5-4.9)
--- NOTE | 2017-12-18 07:05 | NUR ---
RCV'D PT ON MECHANICAL VENTILATION TRACHED WITH PORTEX 7. TRACH IS IN PLACE AND SECURED. VENT CONNECTED TO RED OUTLET. ALARMS AUDIBLE. VENT SETTINGS CHARTED. AMBU BAG AT BEDSIDE. NO SOB OR DISTRESS NOTED. HHN TX NOT INDICATED AT THIS TIME. WILL CONTINUE TO MONITOR.
--- NOTE | 2017-12-18 07:10 | NUR ---
REPORT GIVEN TO AM NURSE AT BEDSIDE. PT IN STABLE CONDITION.
--- NOTE | 2017-12-18 07:12 | NUR ---
GAVE BEDSIDE REPORT TO LABEL PRINTER NURSE. PATIENT IS AWAKE, ALERT AND ORIENTEDX1. HE IS NONVEBAL. NO SIGNS OF DISTRESS ON TRACH TO VENT. FIO2 30, PEEP5, RR12, VT 500, FLOW 40. SIMV VC. HE IS BEDBOUND. SKIN NONINTACT. L HIP AND L UPPER CHEST. DRESSINGS ARE CLEAN, DRY AND INTACT. COLOSTOMY BAG INTACT. ARELLANO IN PLACE. CATH ON R FEMORAL. CLEAN, DRY AND INTACT. BED IN LOW POSITION. FALL RISK PROTOCOL IN PLACE. ASPIRATION PRECAUTIONS, CONTACT PRECAUTIONS. BED ALARM ON. WOUND BED. WILL CONTINUE TO MONITOR THE PATIENT. HEEL PROTECTORS IN PLACE
[2017-12-18 07:36] LABS: EOSINOPHILS % (MANUAL) 2 % (0-4); LYMPHOCYTES % (MANUAL) 10 % (20-46); MONOCYTES % (MANUAL) 9 % (5-12)
[2017-12-18 08:00] VITALS: BP 142/70
--- NOTE | 2017-12-18 08:23 | NUR ---
PATIENT CONTINUES TO HIT HIS TRACH. REORIENTING PATIENT NOT TO HIT TRACH BUT HE CONTINUES TO DO SO. PATIENT IS APHASIC. TOLD DR ODELL SHE SAID SHE WILL PUT WRIST RESTRAINTS.
--- NOTE | 2017-12-18 08:43 | NUR ---
MITTENS REMOVED. NO SIGNS OF INJURY. CIRCULATION IS FINE. REMOVED FOR 15 MINS. PLACED WRIST RESTRAINTS. EASY RELEASE IS ON. CIRCULATION IS FINE. PLACED WRIST RESTRAINTS BECAUSE PATIENT CONTINUES TO HIT HIS TRACH EVEN W REORIENTATION NOT TO HIT TRACH. ALSO TRIES TO GET TO LINES. DRS ORDER IN PLACE
[2017-12-18] MEDS: LACTOBACILLUS RHAMNOSUS GG 1 EACH CAP GT SCH (10:06)
[2017-12-18] MEDS: METOPROLOL 25 MG TAB PO SCH ×2 (10:22→20:18)
[2017-12-18] MEDS: levETIRAcetam 100 MG/ML ORASYR GT SCH ×2 (10:23→20:17)
[2017-12-18] MEDS: VALPROIC ACID 250 MG/5 ML UDC GT SCH ×2 (10:23→20:18)
[2017-12-18] MEDS: AMIODARONE 200 MG TAB GT SCH (10:23)
[2017-12-18] MEDS: PANTOPRAZOLE 40 MG INJ VIAL IVP SCH (10:24)
--- NOTE | 2017-12-18 10:30 | NUR ---
ADMINISTERED MEDS. PATIENT TOLERATED WELL. BED IN LOW POSITION. CALL LIGHT WITHIN REACH, WILL CONTINUE TO MONITOR
[2017-12-18] MEDS: INSULIN LANTUS 100 UNITS/ML 10 ML VIAL SUBQ SCH (10:33)
--- NOTE | 2017-12-18 11:07 | NUR ---
Wound care re-evaluation note: Status post I and D of left superior anterior chest abscess -Surgical wound left superior anterior chest 1.7x4.5x1.2 cm wound bed pale pink, scattered yellow color tissue to wound bed, moist, no odor, devon-wound skin dry , intact, wound site no s/s of infection. -Recommendations: Cleanse left superior anterior chest surgical wound with wound cleansing solution, pat dry , pack with Therahoney dressing sheet, cover with dry dressing change QOD and prn if soiling. Pt. responding to current treatment for pressure injury, continue same orders.
[2017-12-18] MEDS ORDERED: MAG SULF 2000 MG/WATER PREMIX 50 ML IV ONE (11:40)
[2017-12-18 12:00] VITALS: BP 125/73
--- NOTE | 2017-12-18 12:00 | NUR ---
VITALS ARE STABLE. NO SIGNS OF DISTRESS. BED IN LOW POSITION. WILL CONTINUE TO MONITOR THE PATIENT
[2017-12-18] MEDS ORDERED: PIPER/TAZO 2.25GM/D5W PREMIX 50 ML IV SCH (13:00)
[2017-12-18] MEDS: MAGNESIUM SULFATE 1GM in DEXTROSE 5% 100 ML PREMIX IV SCH ×2 (13:45→16:26)
[2017-12-18] MEDS: INSULIN LISPRO SLIDING SCALE 100 UNITS/ML VIAL SUBQ PRN ×2 (13:46→17:27)
--- NOTE | 2017-12-18 13:55 | NUR ---
ADMINISTERED MEDS. PATIENT TOLERATED WELL. NO SIGNS OF DISTRESS. WILL CONTINUE TO MONITOR THE PATIENT. BED IN LOW POSITION.
--- NOTE | 2017-12-18 14:12 | NUR ---
DECREASED FIO2 TO 24%. PT SPO2 IS 99% NO SOB OR DISTRESS NOTED. RN AWARE. WILL CONTINUE TO MONITOR.
--- NOTE | 2017-12-18 14:50 | NUR ---
PATIENT IS SLEEPING, NO SIGNS OF DISTRESS. WILL CONTINUE TO MONITOR THE PATIENT
[2017-12-18 16:00] VITALS: BP 134/70
[2017-12-18] MEDS: MUPIROCIN CA NASAL 2% 1GM TUBE NS SCH (16:26)
[2017-12-18] MEDS: CHLORHEXADINE GLUC 2% CLOTH TP SCH (16:26)
--- NOTE | 2017-12-18 16:40 | NUR ---
ADMINISTERED IVPB. PATIENT TOLERATING WELL. NO SIGNS OF DISTRESS. SUCTIONED PATIENT D/T INCREASED SECRETIONS. PATIENT TOLERATED WELL. WILL CONTINUE TO MONITOR THE PATIENT
--- NOTE | 2017-12-18 18:43 | NUR ---
REMOVED WRIST RESTRAINTS. PATIENT IS REACHING FOR FEMORAL CATH. EDUCATED PATIENT NOT TO PULL LINES. PATIENT STILL REACHING FOR IN. REMOVED RESTRAINTS FOR 15 MINS. NO SIGNS OF INJURY NO PROBLEMS W CIRCULATION. WRIST RESTRAINTS BACK ON
--- NOTE | 2017-12-18 19:05 | NUR ---
GAVE BEDSIDE REPORT TO SPECIALTY FINISHING UTILITY PERSON NURSE. PATIENT IN STABLE CONDITION.
--- NOTE | 2017-12-18 19:06 | NUR ---
REPORT RECEIVED FROM DAY SHIFT NURSE ASHISH-RN AT BEDSIDE. PT IN STABLE CONDITION. AAOX1. PT TRACH TO MECHANICAL VENT. VENT SETTINGS AT FLOW RATE 30, FIO2 30%, SPO2 100%. SUCTION AT BEDSIDE SPUTUM CLEAR COLOR. PT ON SEIZURE PRECAUTIONS. PT HAS ORDER FOR WRIST RESTRAINTS WITH ASSESSMENTS EVERY 2 HOURS. PT HAS COLOSTOMY DRAINING PROPERLY. IV SITE L HAND 22G SL. CENTRAL LINE AND HD COMBO CATH R FEMORAL. G-TUBE FEEDING AT 30ML/HR WITH 100ML FLUSH. SKIN WARM, DRY, AND NOT INTACT DUE TO SURGICAL WOUND ON LEFT UPPER CHEST, LEFT HIP PRESSURE ULCER, HEEL DTI, LEFT KNEE BLANCHABLE REDNESS. BED IN LOWEST POSITION, BED BREAKS ON, AND BOTH SIDE RAILS UP. BED SIDE TABLE AND CALL LIGHT ARE WITHIN REACH. WILL CONTINUE TO MONITOR.
[2017-12-18 20:00] VITALS: BP 149/75
--- NOTE | 2017-12-18 20:00 | NUR ---
BLOOD GLUCOSE 130- NO INSULIN COVERAGE NEEDED. VITAL SIGNS TAKEN AND TOLERATED WELL. NO S/S OF RESPIRATORY DISTRESS OR DISCOMFORT NOTED AT THIS TIME. WILL CONTINUE TO MONITOR.
[2017-12-18] MEDS: VIT-B COMP/VIT-C/FOLIC ACID 1 TAB GT SCH (20:18)
[2017-12-18] MEDS: NACL 0.9% 1,000 ML IV SCH (20:18)
--- NOTE | 2017-12-18 20:20 | NUR ---
RECEIVED PATIENT ON CURRENT SETTINGS: SIMV RATE 12 500 PS 12 PEEP 5 FIO2 24%. RN AT BEDSIDE AND PATIENT WAS AWAKE AND QUIET. PATIENT IS TRACH'D WITH A PORTEX 7 THAT IS SEWN TO THE SKIN OF THE BOTTOM PORTION OF THE NECK. TRACH GAUZE/DRESSING IS ABOVE THE TRACH CAMACHO. STOMA APPEARS HEALTHY WITH NO REDNESS OR IRRITATION BUT IS DRAINING MODERATE SECRETIONS THAT ARE CLEAR. SUCTIONED PATIENT AND RECEIVED SMALL, CREAMY SECRETIONS. VENT ALARMS VERIFIED. VENT BRAKES ARE ON AND PLUGGED INTO RED OUTLET. AMBU BAG AT BEDSIDE.
--- NOTE | 2017-12-18 22:00 | NUR ---
PT RESTING IN BED. NO S/S OF RESPIRATORY DISTRESS OR DISCOMFORT NOTED AT THIS TIME. WILL CONTINUE TO MONITOR.
--- NOTE | 2017-12-18 23:10 | NUR ---
VENT CHECK AND PATIENT ASSESSMENT. NO CHANGES TO VENT SETTINGS. SUCTIONED PATIENT AND RECEIVED SMALL, WHITE, FROTHY AND THIN SECRETIONS. SUCTIONED STOMA.
[2017-12-19] VITALS: BP 136/61
--- NOTE | 2017-12-19 | NUR ---
VITAL SIGNS TAKEN AND TOLERATED WELL. NO S/S OF RESPIRATORY DISTRESS OR DISCOMFORT NOTED AT THIS TIME. WILL CONTINUE TO MONITOR.
[2017-12-19] MEDS: THERAHONEY WOUND DRESSING TP SCH ×2 (00:25→13:15)
--- NOTE | 2017-12-19 00:25 | NUR ---
WOUND DRESSING CHANGED ON UPPER LEFT CHEST AND LEFT HIP. PT TOLERATED WELL. NO S/S OF RESPIRATORY DISTRESS OR DISCOMFORT NOTED AT THIS TIME. WILL CONTINUE TO MONITOR.
--- NOTE | 2017-12-19 02:00 | NUR ---
PT CONTINUES TO SLEEP IN BED. NO S/S OF RESPIRATORY DISTRESS OR DISCOMFORT NOTED AT THIS TIME. WILL CONTINUE TO MONITOR.
--- NOTE | 2017-12-19 03:20 | NUR ---
VENT CHECK AND PATIENT ASSESSMENT. AIRWAY IS PATENT. NO CHANGES TO VENT SETTINGS. SUCTIONED PATIENT AND RECEIVED SMALL, CREAMY, THIN SECRETIONS. B/S: DIMINISHED BILATERALLY.
[2017-12-19 04:00] VITALS: BP 151/70
--- NOTE | 2017-12-19 04:00 | NUR ---
VITAL SIGNS TAKEN AND TOLERATED WELL. NO S/S OF RESPIRATORY DISTRESS OR DISCOMFORT NOTED AT THIS TIME. WILL CONTINUE TO MONITOR.
--- NOTE | 2017-12-19 05:30 | NUR ---
BLOOD GLUCOSE 237- WILL ADMINISTER INSULIN COVERAGE.
[2017-12-19] MEDS: BLOOD GLUCOSE MONITORING 1 DEV DEV FS SCH ×4 (05:34→22:05)
[2017-12-19] MEDS: INSULIN LISPRO SLIDING SCALE 100 UNITS/ML VIAL SUBQ PRN ×2 (05:40→13:20)
--- NOTE | 2017-12-19 05:40 | NUR ---
INSULIN COVERAGE GIVEN AND TOLERATED WELL. NO S/S OF RESPIRATORY DISTRESS OR DISCOMFORT NOTED AT THIS TIME. WILL CONTINUE TO MONITOR.
--- NOTE | 2017-12-19 07:00 | NUR ---
PT SLEEPING IN BED. NO S/S OF RESPIRATORY DISTRESS OR DISCOMFORT NOTED AT THIS TIME. WILL CONTINUE TO MONITOR.
[2017-12-19 07:05] LABS: HEMATOCRIT 29.7 % (36-52); HEMOGLOBIN 9.7 g/dL (12.0-18.0); MEAN CORPUSCULAR HEMOGLOBIN 32 pg (27-31); MEAN CORPUSCULAR HGB CONC 33 g/dL (33-37); MEAN CORPUSCULAR VOLUME 98.2 fL (80-94); PLATELET COUNT (AUTO) 506 K/uL (140-450); RED BLOOD CELL COUNT(AUTO) 3.02 MIL/uL (4.20-6.10); RED CELL DISTRIBUTION WIDTH 18.6 % (11.6-13.7); WHITE BLOOD COUNT (AUTO) 14.1 K/uL (4.8-10.8)
--- NOTE | 2017-12-19 07:19 | NUR ---
RCV'D PT ON MECHANICAL VENTILATION TRACHED WITH PORTEX 7. TRACH IS IN PLACE AND SECURED. VENT IS CONNECTED TO RED OUTLET. ALARMS AUDIBLE. AMBU BAG AT BEDSIDE. PT IS ASLEEP COMFORTABLY. NO SOB OR DISTRESS NOTED. CLEAR BREATH SOUNDS. NO HHN TX NEEDED AT THIS TIME. WILL CONTINUE TO MONITOR.
--- NOTE | 2017-12-19 07:30 | NUR ---
ENDORSED PT CARE TO DAY SHIFT NURSE ASHISH-RN FOR CONTINUITY OF CARE.
--- NOTE | 2017-12-19 07:32 | NUR ---
RECEIVED BEDSIDE REPORT FROM ZIGZAG ELASTIC ATTACHER NURSE. PATIENT IS SLEEPING. NO SIGNS OF DISTRESS. TRACH TO VENT FIO2 24 VT 500 RR12 FLOW 40 PEEP5. PATIENT IS APHASIC. BEDBOUND. PATIENT IS INCONTINENT. COLOSTOMY BAG IN PLACE. GTUBE IN PLACE NEPHRO AT 30ML, H20 FLUSH [id number]. PATIENT TOLERATING WELL. NO RESIDUAL. R FEMORAL COMBO LINE FOR FLUIDS AND DIALYSIS. CLEAN, DRY AND INTACT. NS INFUSING 20ML/HR. CONTACT, FALL, SEIZURES, ASPIRATION PRECAUTIONS. BED IN LOW POSITION. BED ALARM IS ON. WILL CONTINUE TO MONITOR
--- NOTE | 2017-12-19 07:40 | NUR ---
DIALYSIS STARTING. DIALYSIS NURSE AT BEDSIDE. WILL CONTINUE TO MONITOR
[2017-12-19 08:00] VITALS: BP 160/67
[2017-12-19 08:03] LABS: ANION GAP 14.9 (8-16); CARBON DIOXIDE 24.8 mmol/L (21-32); POTASSIUM 3.7 mmol/L (3.5-5.1)
[2017-12-19 08:19] LABS: MAGNESIUM 2.5 mg/dL (1.8-2.4)
[2017-12-19 08:23] LABS: EOSINOPHILS % (MANUAL) 2 % (0-4); LYMPHOCYTES % (MANUAL) 13 % (20-46); MONOCYTES % (MANUAL) 4 % (5-12)
[2017-12-19] MEDS: METOPROLOL 25 MG TAB PO SCH ×2 (09:00→22:02)
[2017-12-19] MEDS: AMIODARONE 200 MG TAB GT SCH (09:00)
--- NOTE | 2017-12-19 09:06 | NUR ---
VENT CHECKED. NO SOB OR DISTRESS NOTED. PT ON DIALYSIS. WILL CONTINUE TO MONITOR.
[2017-12-19] MEDS: levETIRAcetam 100 MG/ML ORASYR GT SCH ×2 (09:59→22:01)
[2017-12-19] MEDS: VALPROIC ACID 250 MG/5 ML UDC GT SCH ×2 (09:59→22:02)
[2017-12-19] MEDS: LACTOBACILLUS RHAMNOSUS GG 1 EACH CAP GT SCH (10:01)
[2017-12-19] MEDS: PANTOPRAZOLE 40 MG INJ VIAL IVP SCH (10:07)
[2017-12-19] MEDS: INSULIN LANTUS 100 UNITS/ML 10 ML VIAL SUBQ SCH (10:07)
[2017-12-19] MEDS: EPOETIN ALFA 10,000 UNITS/ML VIAL SUBQ SCH (10:12)
--- NOTE | 2017-12-19 10:31 | NUR ---
ADMINISTERED MEDS. PATIENT TOLERATED WELL. HELD ALL B/P MEDS FOR DIALYSIS. WILL CONTINUE TO MONITOR THE PATIENT. DIALYSIS NURSE AT BEDSIDE
--- NOTE | 2017-12-19 11:00 | NUR ---
DIALYSIS IS DONE. VITALS ARE STABLE. 2L OUT. WILL CONTINUE TO MONITOR THE PATIENT
[2017-12-19 12:00] VITALS: BP 139/78
--- NOTE | 2017-12-19 13:21 | NUR ---
ADMINISTERED MEDS. PATIENT TOLERATED WELL. WILL CONTINUE TO MONITOR THE PATIENT. BED IN LOW POSITION. BED ALARM IS ON
--- NOTE | 2017-12-19 13:24 | NUR ---
PT IS ASLEEP COMFORTABLY. NO SOB OR DISTRESS NOTED. WILL CONTINUE TO MONITOR.
--- NOTE | 2017-12-19 14:33 | NUR ---
12/19/17 RD FOLLOW UP COMPLETED PLEASE REFER TO NUTRITION ASSESSMENT UNDER CARE ACTIVITY FOR ESTIMATED NUTRITIONAL NEEDS. 1. WHEN PATIENT IS MEDICALLY ABLE CONSIDER ADVANCING TF TO GOAL RATE 40 ML/HR WITH NEPRO. FREE WATER FLUSH PER MD 2/2 RENAL. - PROVIDES DAILY: 960ML, 1728 KCAL, 77 GM PROTEIN; MEETS PT ESTIMATED KCAL NEEDS AND PROTEIN NEEDS. 2. RD TO FOLLOW-UP 2-3 DAYS, HIGH RISK ROSA FENTON, RD
--- NOTE | 2017-12-19 15:09 | NUR ---
INCREASED SECRETIONS. I SUCTIONED THE PATIENT. PATIENT TOLERATED WELL. BED IN LOW POSITION. ALARM ON, WILL CONTINUE TO MONITOR THE PATIENT.
[2017-12-19 16:00] VITALS: BP 127/66
--- NOTE | 2017-12-19 16:44 | NUR ---
TURNED PATIENT W TAX SERVICES MANAGER. RELEASED RESTRAINTS AND PATIENT TRIED REMOVING R FEMORAL DIALYSIS CATH. REINFORCED CATHETER DRESSING. WILL CONTINUE TO MONITOR THE PATIENT.
--- NOTE | 2017-12-19 18:06 | NUR ---
PATIENT IS AWAKE. NO SIGNS OF DISTRESS. BED IN LOW POSITION. BED ALARM ON. WILL CONTINUE TO MONITOR THE PATIENT
--- NOTE | 2017-12-19 19:27 | NUR ---
GAVE BEDSIDE REPORT TO CLINICAL DATA MANAGEMENT DIRECTOR NURSE. PATIENT IN STABLE CONDITION
--- NOTE | 2017-12-19 19:35 | NUR ---
SEEN PT AWAKE, ALERT, APHASIC, APPEARS COMFORTABLE. INITIAL ASSESSMENT DONE. VITAL SIGNS CHECKED. PT IS ON CONTACT ISOLATION, SEIZURE AND FALL PRECAUTION. Addendum: 12/20/17 at 0159 by Keyla Aragon RN PT IS ON BILATERAL WRIST RESTRAINTS ORDERED.
[2017-12-19 20:00] VITALS: BP 126/61
--- NOTE | 2017-12-19 22:00 | NUR ---
SEEN PT AWAKE BUT CALM. BLOOD SUGAR CHECKED:108. NO COVERAGE NEEDED. NO RESIDUAL ON GTUBE. COLOSTOMY BAG W/ [id number] AMOUNT OF THICK LIQUID STOOL. MEDICATIONS CRUSHED AND GIVEN VIA GTUBE W/ 100ML FREE WATER FLUSH. PT TOLERATED MEDICATIONS WELL. PT REPOSITIONED FOR COMFORT.
[2017-12-19] MEDS: VIT-B COMP/VIT-C/FOLIC ACID 1 TAB GT SCH (22:02)
--- NOTE | 2017-12-20 00:45 | NUR ---
SEEN PT AWAKE. VITAL SIGNS CHECKED. PT REPOSITIONED FOR COMFORT. PT SUCTIONED AND ORAL CARE RENDERED. SAFETY REINFORCED.
[2017-12-20 00:50] VITALS: BP 124/59
[2017-12-20] MEDS: THERAHONEY WOUND DRESSING TP SCH ×3 (01:23→13:00)
--- NOTE | 2017-12-20 01:30 | NUR ---
PT COUGHING AND VENT BEEPING. PT SUCTIONED AND ORAL CARE RENDERED.
[2017-12-20 04:30] VITALS: BP 122/61
--- NOTE | 2017-12-20 04:30 | NUR ---
SEEN PT ASLEEP BUT AROUSABLE. VITAL SIGNS CHECKED. COLOSTOMY BAG EMPTIED W/ 50ML BROWN/MAROON COLORED STOOL. COLOSTOMY BAG CHANGED DUE TO SOME LEAKAGE. PT REPOSITIONED FOR COMFORT.PT STILL ON BILATERAL SOFT WRIST RESTRAINTS.
--- NOTE | 2017-12-20 05:00 | NUR ---
PT SUCTIONED AND ORAL CARE RENDERED.
--- NOTE | 2017-12-20 06:05 | NUR ---
PT AWAKE. NO RESIDUAL ON GTUBE NOTED. PT REPOSITIONED FOR COMFORT. RT CHANGED THE TRACH DRESSING.
[2017-12-20 06:30] LABS: HEMATOCRIT 28.9 % (36-52); HEMOGLOBIN 9.2 g/dL (12.0-18.0); MEAN CORPUSCULAR HEMOGLOBIN 31 pg (27-31); MEAN CORPUSCULAR HGB CONC 32 g/dL (33-37); MEAN CORPUSCULAR VOLUME 97.6 fL (80-94); PLATELET COUNT (AUTO) 489 K/uL (140-450); RED BLOOD CELL COUNT(AUTO) 2.96 MIL/uL (4.20-6.10); RED CELL DISTRIBUTION WIDTH 18.9 % (11.6-13.7); WHITE BLOOD COUNT (AUTO) 14.6 K/uL (4.8-10.8)
[2017-12-20 06:39] LABS: ANION GAP 13.1 (8-16); CARBON DIOXIDE 24.4 mmol/L (21-32); CREATININE 3.6 mg/dL (0.7-1.3); POTASSIUM 3.5 mmol/L (3.5-5.1)
[2017-12-20 06:46] LABS: MAGNESIUM 2.2 mg/dL (1.8-2.4); PHOSPHORUS 3.2 mg/dL (2.5-4.9)
[2017-12-20] MEDS: BLOOD GLUCOSE MONITORING 1 DEV DEV FS SCH ×4 (06:51→21:45)
[2017-12-20 07:02] LABS: BASOPHILS % (MANUAL) 1 % (0-2); EOSINOPHILS % (MANUAL) 4 % (0-4); LYMPHOCYTES % (MANUAL) 6 % (20-46); MONOCYTES % (MANUAL) 7 % (5-12)
--- NOTE | 2017-12-20 07:10 | NUR ---
RECEIVED PATIENT REPORT AT BEDSIDE. PATIENT AWAKE BUT APHASIC. NO S/S OF DISTRESS. PATIENT TRACH TO VENT WITH SETTINGS FIO2 24% PEEP 5 FLOW RATE OF 40 VT 500. PT ON CONTINUOUS TELE MONITORING. O2 SAT 100% AT THIS TIME. PATIENT ON TELE MONITORING. BED LOWERED WITH CALL LIGHT WITHIN REACH. WILL CONTINUE TO MONITOR
[2017-12-20] MEDS: ALBUTEROL SULFATE/IPRATROPIU 3 ML SOL IH PRN (07:39)
[2017-12-20 07:55] VITALS: BP 138/66
--- NOTE | 2017-12-20 09:00 | NUR ---
PATIENT GIVEN BED BATH. COLOSTOMY BAG CHANGED. WOUND DRESSING ON THE LEFT HIP CHANGED. PATIENT TURNED AND REPOSITIONED FOR COMFORT. PATIENT TOLERATED WELL
--- NOTE | 2017-12-20 09:13 | NUR ---
RECIVED PT ON VENT WITH SETTINGS CHARTED BREATH SOUNDS PRESENT BILAT DIMINIAHES SXN PT WITH MIN TO MOD AMT MENDEZ SECS TRACH SITE SECURE AMBU BAG AT BEDSIDE VENT PLUGGED INTO RED OUTLET WILL CONTINUE TO MONITOR PT ON VENT
[2017-12-20] MEDS: NACL 0.9% 1,000 ML IV SCH ×2 (09:40→20:25)
--- NOTE | 2017-12-20 09:40 | NUR ---
ADMINISTERED MEDS VIA [employer]. NO RESIDUALS NOTED. PATIENT TOLERATED WELL
[2017-12-20] MEDS: VALPROIC ACID 250 MG/5 ML UDC GT SCH ×2 (09:41→21:23)
[2017-12-20] MEDS: LACTOBACILLUS RHAMNOSUS GG 1 EACH CAP GT SCH (09:41)
[2017-12-20] MEDS: levETIRAcetam 100 MG/ML ORASYR GT SCH ×2 (09:41→21:23)
[2017-12-20] MEDS: AMIODARONE 200 MG TAB GT SCH (09:41)
[2017-12-20] MEDS: PANTOPRAZOLE 40 MG INJ VIAL IVP SCH (09:42)
[2017-12-20] MEDS: METOPROLOL 25 MG TAB PO SCH ×2 (09:42→21:24)
[2017-12-20] MEDS: INSULIN LANTUS 100 UNITS/ML 10 ML VIAL SUBQ SCH (09:48)
--- NOTE | 2017-12-20 09:50 | NUR ---
PATIENT SEEN BY DR LOVELL
--- NOTE | 2017-12-20 10:58 | NUR ---
FAXED MICR[facility] TO IVR [phone].
[2017-12-20 12:00] VITALS: BP 122/62
[2017-12-20] MEDS: INSULIN LISPRO SLIDING SCALE 100 UNITS/ML VIAL SUBQ PRN (12:13)
--- NOTE | 2017-12-20 16:00 | NUR ---
LEFT UPPER CHEST WOUND DRESSING CHANGED. PATIENT GIVEN ORAL CARE. NO S/S OF DISTRESS NOTED
[2017-12-20 16:36] VITALS: BP 124/62
--- NOTE | 2017-12-20 17:30 | NUR ---
CONTINUED TO MONITOR PT ON VENT WITH SETTINGS CHARTED BREATH SOUNDS PRESENT BILAT SCATTERD RALES SXN PT WITH MIN TO MOD AMT OFF SECS TRACH SITE SECURE AMBU BAG AT BEDSIDE VENT PLUGGED INTO RED OUTLET
--- NOTE | 2017-12-20 18:04 | NUR ---
SPOKE TO ALBERT CAMPOS AND INFORMED HER ABOUT THE HEMODIALYSIS ORDERED FOR THE PATIENT FOR TOMORROW
--- NOTE | 2017-12-20 19:13 | NUR ---
RECEIVED BEDSIDE REPORT FROM SG CAMPOS. PT AWAKE IN BED, APHASIC, UNABLE TO MAKE NEEDS KNOWN, TRACT TO VENTILATOR WITH SETTINGS AT FIO2 24%, TIDAL VOLUME 500, RR 12, PEEP 5. CLEAR LUNG SOUNDS, NO SIGNS OF RESPIRATORY DISTRESS. SOFT WRIST RESTRAINTS D/T ATTEMPTING TO PULL OUT TUBES, CIRCULATION IS ADEQUATE, WILL CONTINUE TO MONITOR AND ASSESS NEED AND CIRCULATION APPROPRIATELY. G-TUBE IN PLACE DRESSING INTACT, NEPHRO FEEDING AT 30 ML/HR WITH H20 FLUSH OF 100 Q4H. LEFT COLOSTOMY BAG IN PLACE WITH LOOSE LIGHT BROWN STOOL, DRESSING CLEAN AND INTACT, NO OBVIOUS LEAKAGE. RIGHT SIDE FEMORAL PICC TRIPLE LUMEN, DRESSING INTACT, INFUSING NS AT 20 ML/HR. WILL FOLLOW WITH WOUND CARE ACCORDING TO MD ORDER FOR OLD REBECCA CATH AND LEFT HIP. V/S TAKEN ALL WITHIN PATIENTS BASELINE. BED IN LOWEST POSITION, UPDATED BOARD, EXPLAINED PLAN OF CARE. WILL CONTINUE TO MONITOR.
--- NOTE | 2017-12-20 19:13 | NUR ---
PATIENT REPORT GIVEN AT BEDSIDE. PATIENT ENDORSED IN STABLE CONDITION
[2017-12-20 20:00] VITALS: BP 128/66
--- NOTE | 2017-12-20 20:00 | NUR ---
SOFT WRIST RESTRAINTS REMOVED, CIRCULATION WITHIN NORMAL LIMITS, PT PULLING AT CENTRAL LINE, WILL CONTINUE TO MONITOR.
[2017-12-20] MEDS: VIT-B COMP/VIT-C/FOLIC ACID 1 TAB GT SCH (21:24)
--- NOTE | 2017-12-20 22:00 | NUR ---
DUE MEDICATIONS GIVEN PT TOLERATED WELL. SOFT WRIST RESTRAINTS REMOVED, CIRCULATION WITHIN NORMAL LIMITS, PT PULLING AT CENTRAL LINE, WILL CONTINUE TO MONITOR FOR NEED OF WRIST RESTRAINTS.
[2017-12-21] VITALS: BP 126/62
--- NOTE | 2017-12-21 | NUR ---
V/S TAKEN, ALL WITHIN PTS BASELINE, FLACC-0, SOFT WRIST RESTRAINTS REMOVED, CIRCULATION WITHIN NORMAL LIMITS, NO SIGNS OF INJURY, PT CONTINUING TO PULL AT CENTRAL LINE, WILL CONTINUE TO MONITOR.
[2017-12-21] MEDS: THERAHONEY WOUND DRESSING TP SCH ×2 (01:30→12:06)
--- NOTE | 2017-12-21 02:00 | NUR ---
PT RESTING IN BED, NO SIGNS OF ACUTE DISTRESS, SOFT WRIST RESTRAINTS REMOVED, CIRCULATION WITHIN NORMAL LIMITS, PT PULLING AT CENTRAL LINE, WILL CONTINUE TO MONITOR FOR NEED.
[2017-12-21 04:00] VITALS: BP 115/66
--- NOTE | 2017-12-21 04:00 | NUR ---
CIRCULATION ASSESSED, CONTINUE WITH SOFT WRIST RESTRAINTS. WILL CONTINUE TO MONITOR.
--- NOTE | 2017-12-21 06:00 | NUR ---
PT IN BED, NO SIGNS OF DISTRESS, CONTINUE WITH SOFT WRIST RESTRAINTS, CIRCULATION ASSESSED, NO COMPROMISE NOTED. WILL CONTINUE TO MONITOR.
[2017-12-21] MEDS: BLOOD GLUCOSE MONITORING 1 DEV DEV FS SCH ×4 (06:01→21:00)
--- NOTE | 2017-12-21 07:15 | NUR ---
ENDORSED PT TO DAY SHIFT NURSE, PT STABLE.
--- NOTE | 2017-12-21 07:25 | NUR ---
RECEIVED REPORT FROM RETAIL BUYER NURSE AT BEDSIDE. PATIENT IS SLEEPING IN BED, AROUSABLE BY VOICE. PT IS APHASIC. ON CONTACT PRECAUTIONS, SEIZURE PRECAUTIONS, AND ASPIRATION PRECAUTIONS. TUBE FEEDING RUNNING THROUGH G-TUBE. RESTRAINTS IN PLACE DUE TO PT PULLING OUT LINES AND TUBES. FEMORAL CENTRAL LINE TRIPLE LUMEN PATENT AND ASYMPTOMATIC, RUNNING IVF PER MD ORDERS. TWO LUMENS TO BE USED FOR DIALYSIS ONLY. HD ON . DRESSING OVER PREVIOUS REBECCA CATH SITE ON LEFT UPPER CHEST. DRESSING OVER LEFT HIP PRESSURE ULCER IS DRY AND INTACT. DEEP PRESSURE INJURY TO LEFT FOOT RAFTSMAN. HEEL PROTECTORS IN PLACE. ALL SAFETY PRECAUTIONS IN PLACE, WILL CONTINUE TO MONITOR. Addendum: 12/21/17 at 1407 by Shefali Fritz Meng, RN TRACH TO VENT. COLOSTOMY BAG IN PLACE.
[2017-12-21 08:00] VITALS: BP 137/66
[2017-12-21 08:04] LABS: HEMATOCRIT 31.2 % (36-52); MEAN CORPUSCULAR HEMOGLOBIN 31 pg (27-31); MEAN CORPUSCULAR HGB CONC 32 g/dL (33-37); MEAN CORPUSCULAR VOLUME 97.4 fL (80-94); PLATELET COUNT (AUTO) 506 K/uL (140-450); RED CELL DISTRIBUTION WIDTH 18.4 % (11.6-13.7); WHITE BLOOD COUNT (AUTO) 15.2 K/uL (4.8-10.8)
[2017-12-21 08:11] LABS: ANION GAP 14.8 (8-16); CARBON DIOXIDE 23.1 mmol/L (21-32); POTASSIUM 3.9 mmol/L (3.5-5.1)
[2017-12-21 08:15] LABS: CREATININE 4.4 mg/dL (0.7-1.3)
[2017-12-21 08:16] LABS: MAGNESIUM 2.4 mg/dL (1.8-2.4); PHOSPHORUS 4.2 mg/dL (2.5-4.9)
[2017-12-21 08:37] LABS: EOSINOPHILS % (MANUAL) 6 % (0-4); LYMPHOCYTES % (MANUAL) 10 % (20-46); MONOCYTES % (MANUAL) 2 % (5-12)
[2017-12-21] MEDS: METOPROLOL 25 MG TAB PO SCH ×2 (09:00→21:06)
[2017-12-21] MEDS: AMIODARONE 200 MG TAB GT SCH (09:00)
[2017-12-21] MEDS: PANTOPRAZOLE 40 MG INJ VIAL IVP SCH (10:02)
[2017-12-21] MEDS: VALPROIC ACID 250 MG/5 ML UDC GT SCH ×2 (10:02→21:05)
[2017-12-21] MEDS: levETIRAcetam 100 MG/ML ORASYR GT SCH ×2 (10:02→21:06)
[2017-12-21] MEDS: EPOETIN ALFA 10,000 UNITS/ML VIAL SUBQ SCH (10:03)
[2017-12-21] MEDS: LACTOBACILLUS RHAMNOSUS GG 1 EACH CAP GT SCH (10:10)
--- NOTE | 2017-12-21 10:25 | NUR ---
MEDICATIONS ADMINISTERED PER MD ORDERS. PT IN DIALYSIS NOW. PER ENGINE REPAIRER, HOLD THE AMIODARONE UNTIL AFTER DIALYSIS. WILL CONTINUE TO MONITOR.
[2017-12-21] MEDS: INSULIN LANTUS 100 UNITS/ML 10 ML VIAL SUBQ SCH (10:36)
[2017-12-21 12:00] VITALS: BP 110/62
[2017-12-21] MEDS: INSULIN LISPRO SLIDING SCALE 100 UNITS/ML VIAL SUBQ PRN (12:05)
--- NOTE | 2017-12-21 12:07 | NUR ---
HIP DRESSING WAS CHANGED DURING 12/20/17 SPECIAL EDUCATION PARAPROFESSIONAL. DRESSING TO BE CHANGED ONCE DAILY. DRESSING IS CLEAN, DRY, AND INTACT. WILL CHANGE PRN SOILING.
--- NOTE | 2017-12-21 13:00 | NUR ---
PER MOBILE UI DEVELOPER, A TOTAL OF 2 LITERS REMOVED DURING HD TODAY. VITALS STABLE.
--- NOTE | 2017-12-21 15:00 | NUR ---
PT RESTING IN BED, FLACC 0. ALL SAFETY PRECAUTIONS IN PLACE, WILL CONTINUE TO MONITOR.
[2017-12-21 16:00] VITALS: BP 126/66
[2017-12-21] MEDS ORDERED: ALTEPLASE 100 MG VIAL IV ONE (16:40)
[2017-12-21] MEDS ORDERED: VANCOMYCIN PER PHARMACY MC PRN (16:45)
[2017-12-21] MEDS ORDERED: ALTEPLASE 2 MG VIAL MC SCH (17:00)
--- NOTE | 2017-12-21 17:05 | NUR ---
CONTINUED TO MONITOR PT ON VENT WITH SETTINGS CHARTED BREATH SOUNDS PRESENT BILAT SCATTERD RALES SXN PT WITH MIN TO MOD AMT OFF WHITE SECS AMBU BAG AT BEDSIDE VENT PLUGGED INTO RED OUTLET TRACH SITE SECURE
--- NOTE | 2017-12-21 17:25 | NUR ---
BS IS 70. TUBE FEEDING IN PLACE AT 30 ML/HOUR. NO SIGNS OF HYPOGLYCEMIA. WILL CONTINUE TO MONITOR.
--- NOTE | 2017-12-21 17:41 | NUR ---
ALTEPASE ADMINISTERED DUE TO CLOGGED CENTRAL LINE PORT.
--- NOTE | 2017-12-21 18:15 | NUR ---
SCHEDULED ROCEPHIN ADMINISTERED LATE DUE TO CLOGGED CENTRAL LINE, WHICH IS NOW PATENT AFTER ALTEPLASE ADMINISTRATION.
[2017-12-21] MEDS ORDERED: FLUCONAZOLE 200 MG/NS PREMIX 100 ML IV SCH ×2 (19:00→20:00)
[2017-12-21 20:00] VITALS: BP 128/62
[2017-12-21] MEDS: NACL 0.9% 1,000 ML IV SCH (20:25)
--- NOTE | 2017-12-21 20:26 | NUR ---
BLOOD SUGAR IS 48. ADMINISTERED D50 IVP PER MD ORDERS. WILL CONTINUE TO MONITOR.
--- NOTE | 2017-12-21 20:44 | NUR ---
BS NOW IS 146. WILL CONTINUE TO MONITOR.
[2017-12-21] MEDS: VIT-B COMP/VIT-C/FOLIC ACID 1 TAB GT SCH (21:06)
--- NOTE | 2017-12-21 21:19 | NUR ---
RECEIVED BEDSIDE REPORT FROM SG ORTEGA. PT AWAKE IN BED, APHASIC, UNABLE TO MAKE NEEDS KNOWN, BUT RESPONSIVE TO NAME. ON CONTACT, SEIZURE, AND ASPIRATION PRECAUTIONS, WITH APPROPRIATE EQUIPMENT AT BEDSIDE. TRACT TO VENTILATOR WITH SETTINGS AT FIO2 24%, TIDAL VOLUME 500, RR 12, PEEP 5. CLEAR LUNG SOUNDS, NO SIGNS OF RESPIRATORY DISTRESS. SOFT WRIST RESTRAINTS D/T ATTEMPTING TO PULL OUT TUBES, CIRCULATION IS ADEQUATE, WILL CONTINUE TO MONITOR AND ASSESS NEED AND CIRCULATION APPROPRIATELY. G-TUBE IN PLACE DRESSING INTACT, NEPHRO FEEDING AT 30 ML/HR WITH H20 FLUSH OF 100 Q4H. LEFT COLOSTOMY BAG IN PLACE WITH LOOSE LIGHT BROWN STOOL, DRESSING CLEAN AND INTACT, NO OBVIOUS LEAKAGE. RIGHT SIDE FEMORAL PICC TRIPLE LUMEN, DRESSING INTACT, INFUSING NS AT 20 ML/HR. WILL FOLLOW WITH WOUND CARE ACCORDING TO MD ORDER FOR OLD REBECCA CATH AND LEFT HIP PRESSURE ULCER . V/S TAKEN ALL WITHIN PATIENTS BASELINE. BED IN LOWEST POSITION, UPDATED BOARD, EXPLAINED PLAN OF CARE. WILL CONTINUE TO MONITOR.
--- NOTE | 2017-12-21 21:19 | NUR ---
ENDORSED PLAN OF CARE TO JOURNEYMAN POWER PLANT OPERATOR RN SUMMER AT BEDSIDE. SUMMER RN AWARE OF LOW BS EARLIER. PT IN STABLE CONDITION.
--- NOTE | 2017-12-21 22:00 | NUR ---
SOFT WRIST RESTRAINTS REMOVED, CIRCULATION ASSESSED, NO COMPROMISE NOTED. PT PLACED RIGHT HAND ON CENTRAL LINE AND SQUEEZED. WILL CONTINUE WITH RESTRAINTS ACCORDING TO MD ORDER. WILL CONTINUE TO MONITOR.
--- NOTE | 2017-12-21 22:53 | NUR ---
SPOKE WITH DR BRADFORD ABOUT ORDER FOR URINE SAMPLE FOR URINE CULTURE. RECEIVED ORDER FOR STRAIGHT CATH TO COLLECT SAMPLE. WILL FOLLOW WITH MD ORDER.
[2017-12-22] VITALS: BP 142/78
--- NOTE | 2017-12-22 | NUR ---
PT CONTINUES TO NEED SOFT WRIST RESTRAINTS D/T ATTEMPTING TO PULL OUT CENTRAL LINE. REAPPLIED SOFT WRIST RESTRAINTS. WILL CONTINUE TO MONITOR.
--- NOTE | 2017-12-22 00:05 | NUR ---
G-TUBE RESIDUALS AT 5 ML. CHANGED G-TUBE DRESSING AND TUBING, STARTED NEW BOTTLE OF NEPHRO FORMULA AT 30 ML/HR. R/T AT BEDSIDE, CHANGED TRAC DRESSING, WILL CONTINUE TO MONITOR.
--- NOTE | 2017-12-22 01:00 | NUR ---
TALKED TO DR BRADFORD FOR ORDER TO STRAIGHT CATH PT TO COLLECT URINE SAMPLE. RECEIVED ORDER TO STRAIGHT CATH, 10 ML CLOUDY DARK YELLOW URINE COLLECTED. URINE SAMPLE SENT TO LAB FOR URINALYSIS AND URINE CULTURE.
[2017-12-22] MEDS: THERAHONEY WOUND DRESSING TP SCH ×3 (01:16→12:58)
--- NOTE | 2017-12-22 01:30 | NUR ---
WOUND CARE PROVIDED, LEFT UPPER WOUND SLIGHT ODOR, YELLOW/GREEN DISCHARGE. WOULD CLEANSED AND DRESSING APPLIED. LEFT HIP PRESSURE ULCER CLEANSED AND DRESSING APPLIED, NO ODOR NOTED.
--- NOTE | 2017-12-22 02:00 | NUR ---
REMOVED SOFT WRIST RESTRAINTS FOR 15MINS, CIRCULATION ASSESSED. CONTINUE NEED FOR SOFT WRIST RESTRAINTS ACCORDING TO DRS ORDER.
[2017-12-22 03:19] LABS: APPEARANCE,URINE CLOUDY (CLEAR); BILIRUBIN,URINE NEGATIVE (NEGATIVE); BLOOD, URINE 3+ (NEGATIVE); COLOR,URINE YELLOW (YELLOW); LEUKOCYTE ESTERASE ,URINE 2+ (NEGATIVE); NITRITE, URINE NEGATIVE (NEGATIVE); UGLUCOSE NEGATIVE (NEGATIVE)
[2017-12-22 04:00] VITALS: BP 133/73
--- NOTE | 2017-12-22 04:00 | NUR ---
CONTINUE WITH SOFT WRIST RESTRAINTS, CIRCULATION ASSESSED, WILL CONTINUE TO MONITOR.
[2017-12-22 04:25] LABS: RBC,URINE TOO NUMEROUS TO COUN /HPF (0-5)
[2017-12-22 04:26] LABS: WBC,URINE TOO MANY TO COUNT /HPF (0-5)
[2017-12-22] MEDS: BLOOD GLUCOSE MONITORING 1 DEV DEV FS SCH ×4 (05:58→20:28)
--- NOTE | 2017-12-22 06:00 | NUR ---
CONTINUE WITH SOFT WRIST RESTRAINTS, CIRCULATION ASSESSED NO COMPROMISE, WILL CONTINUE TO MONITOR.
--- NOTE | 2017-12-22 07:25 | NUR ---
ENDORSED PT TO DAY SHIFT NURSE, PT STABLE.
--- NOTE | 2017-12-22 07:30 | NUR ---
RECEIVED REPORT FROM DISTRICT AGENT NURSE AT BEDSIDE. PATIENT IS SLEEPING IN BED, AROUSABLE BY VOICE. PT IS APHASIC. ON CONTACT PRECAUTIONS, SEIZURE PRECAUTIONS, AND ASPIRATION PRECAUTIONS. TUBE FEEDING INFUSING THROUGH G-TUBE. RESTRAINTS IN PLACE DUE TO PT SEEN PULLING AT FEMORAL CENTRAL LINE AND G-TUBE. FEMORAL CENTRAL LINE TRIPLE LUMEN PATENT AND ASYMPTOMATIC, INFUSING IVF PER MD ORDERS. TWO LUMENS TO BE USED FOR DIALYSIS ONLY. HD ON [id number]. DRESSING OVER PREVIOUS REBECCA CATH SITE ON LEFT UPPER CHEST, CLEAN, DRY, AND INTACT. DRESSING OVER LEFT HIP PRESSURE ULCER IS DRY AND INTACT. PER DISTRICT AGENT RN SUMMER, BOTH HIP AND LEFT UPPER CHEST DRESSINGS HAVE BEEN CHANGED. DEEP PRESSURE INJURY TO LEFT FOOT ANA. HEEL PROTECTORS IN PLACE. PT IS ON TRACH TO VENT. COLOSTOMY BAG IN PLACE. ALL SAFETY PRECAUTIONS IN PLACE, WILL CONTINUE TO MONITOR.
[2017-12-22 08:00] VITALS: BP 126/61
[2017-12-22] MEDS: LACTOBACILLUS RHAMNOSUS GG 1 EACH CAP GT SCH (09:07)
[2017-12-22] MEDS: METOPROLOL 25 MG TAB PO SCH ×2 (09:08→20:29)
[2017-12-22] MEDS: AMIODARONE 200 MG TAB GT SCH (09:08)
[2017-12-22] MEDS: VALPROIC ACID 250 MG/5 ML UDC GT SCH ×2 (09:09→20:29)
[2017-12-22] MEDS: levETIRAcetam 100 MG/ML ORASYR GT SCH ×2 (09:09→20:29)
[2017-12-22] MEDS: PANTOPRAZOLE 40 MG INJ VIAL IVP SCH (09:10)
[2017-12-22] MEDS: INSULIN LANTUS 100 UNITS/ML 10 ML VIAL SUBQ SCH (09:35)
--- NOTE | 2017-12-22 09:43 | NUR ---
BS IS 173. SCHEDULED LANTUS ADMINISTERED ALONG WITH ALL OTHER SCHEDULED MEDICATIONS. PT IN STABLE CONDITION. PT OBSERVED PULLING AT G-TUBE WHEN RELEASED FROM RESTRAINTS. WILL CONTINUE TO MONITOR.
[2017-12-22] MEDS ORDERED: CEFEPIME 500 MG in DEXTROSE 5% 50 ML IV SCH ×2 (10:00→13:00)
--- NOTE | 2017-12-22 11:29 | NUR ---
DR. DURHAM AWARE OF LOW BLOOD SUGARS DURING THE NIGHT. FEEDING REGIMEN HAS BEEN CHANGED. STARTED PATIENT ON NEW TUBE FEEDING RATE OF 40 ML/HR AND 135 H2O FLUSH Q4H PER DOCTOR'S ORDERS. WILL CONTINUE TO MONITOR.
[2017-12-22 12:00] VITALS: BP 120/59
[2017-12-22] MEDS: INSULIN LISPRO SLIDING SCALE 100 UNITS/ML VIAL SUBQ PRN (12:25)
[2017-12-22 12:31] LABS: HEMATOCRIT 28.5 % (36-52); MEAN CORPUSCULAR HEMOGLOBIN 32 pg (27-31); MEAN CORPUSCULAR HGB CONC 32 g/dL (33-37); MEAN CORPUSCULAR VOLUME 99.7 fL (80-94); PLATELET COUNT (AUTO) 481 K/uL (140-450); RED BLOOD CELL COUNT(AUTO) 2.85 MIL/uL (4.20-6.10); RED CELL DISTRIBUTION WIDTH 18.6 % (11.6-13.7); WHITE BLOOD COUNT (AUTO) 16.3 K/uL (4.8-10.8)
--- NOTE | 2017-12-22 12:37 | NUR ---
ORAL CARE PERFORMED DURING ORAL CARE KIT. PT COOPERATIVE. NO SIGNS OR SYMPTOMS OF DISTRESS. WILL CONTINUE TO MONITOR. Addendum: 12/22/17 at 1330 by Shefali Fritz Meng, RN ORAL CARE PERFORMED USING ORAL CARE KIT
[2017-12-22 12:50] LABS: ANION GAP 11.2 (8-16); CARBON DIOXIDE 25.7 mmol/L (21-32); POTASSIUM 3.9 mmol/L (3.5-5.1)
[2017-12-22 12:53] LABS: MAGNESIUM 2.2 mg/dL (1.8-2.4); PHOSPHORUS 4.5 mg/dL (2.5-4.9)
[2017-12-22 12:58] LABS: CREATININE 4.2 mg/dL (0.7-1.3)
--- NOTE | 2017-12-22 12:58 | NUR ---
HIP WOUND DRESSING NOT CHANGED DUE TO QD DRESSING CHANGE SCHEDULE. SUMMER RN CHANGED THE HIP WOUND DRESSING ON 12/21/17 [employer]. DRESSING IS CLEAN, DRY, AND INTACT. WILL CHANGE PRN SOILING.
[2017-12-22 13:03] LABS: EOSINOPHILS % (MANUAL) 8 % (0-4); LYMPHOCYTES % (MANUAL) 9 % (20-46); MONOCYTES % (MANUAL) 2 % (5-12)
--- NOTE | 2017-12-22 13:43 | NUR ---
12/22/17 RD FOLLOW UP COMPLETED PLEASE REFER TO NUTRITION PROGRESS NOTE UNDER CARE ACTIVITY FOR ESTIMATED NUTRITIONAL NEEDS. 1. RECOMMEND INCREASING NEPRO TUBE-FEED INFUSION RATE FROM 30 ML/HR TO 40 ML/HR. 2. RD TO FOLLOW-UP 2-3 DAYS, HIGH RISK ROSA FENTON, RD
--- NOTE | 2017-12-22 14:32 | NUR ---
ORAL CARE PERFORMED USING ORAL CARE KIT. PT IS COOPERATIVE. NO SIGNS OR SYMPTOMS OF DISTRESS. TRACH SUCTIONED. SCANT SECRETIONS NOTED. WILL CONTINUE TO MONITOR.
[2017-12-22 16:00] VITALS: BP 119/69
--- NOTE | 2017-12-22 16:30 | NUR ---
BS IS 143. NO SLIDING SCALE COVERAGE NEEDED. PT RESTING COMFORTABLY IN BED. WILL CONTINUE TO MONITOR.
--- NOTE | 2017-12-22 17:11 | NUR ---
PT SEEN PULLING AT G-TUBE WHEN RELEASED FROM RESTRAINTS. PT CONTINUES TO NEED RESTRAINTS TO PREVENT PULLING OUT LINES AND TUBES AND INJURING SELF. SKIN ASSESSMENT DONE, NO INJURIES NOTED. CIRCULATION UNIMPAIRED. WILL CONTINUE TO MONITOR.
--- NOTE | 2017-12-22 17:30 | NUR ---
VENT CHECK COMPLETED ALONG WITH TRACH CARE. PT IS AWAKE BUT NOT ALERT. PT IS NOT IN ANY DISTRESS. TRACH REMAINS SECURE WITH A PATENT AIRWAY. PT SUCTIONED OBTAINED SMALL AMOUNT OF THICK WHITE SECRETIONS. VENT ALARMS REMAIN ON AND FUNCTIONING.
--- NOTE | 2017-12-22 19:28 | NUR ---
ENDORSED PLAN OF CARE TO EXCELLENCE CONSULTANT RN AT BEDSIDE. PT IN STABLE CONDITION.
--- NOTE | 2017-12-22 19:28 | NUR ---
RECEIVED BEDSIDE REPORT FROM DAY SHIFT RN SHANNON. PT ASLEEP IN BED, APHASIC, UNABLE TO MAKE NEEDS KNOWN, EYES OPEN TO NAME. ON CONTACT, SEIZURE, AND ASPIRATION PRECAUTIONS, WITH APPROPRIATE EQUIPMENT AT BEDSIDE. TRACT TO VENTILATOR WITH SETTINGS AT FIO2 24%, TIDAL VOLUME 500, RR 12, PEEP 5. CLEAR LUNG SOUNDS, NO SIGNS OF RESPIRATORY DISTRESS. SOFT WRIST RESTRAINTS ON DUE TO PT CONTINUING TO ATTEMPT TO PULL OUT CENTRAL LINE, CIRCULATION IS ADEQUATE AND WITHOUT COMPROMISE, WILL CONTINUE TO MONITOR AND ASSESS NEED AND CIRCULATION APPROPRIATELY EVERY [address]RS[address] G-TUBE IN PLACE, NO RESIDUALS ASPIRATED, DRESSING INTACT, HOB AT 45 DEGREES, NEPHRO FEEDING AT 40 ML/HR WITH H20 FLUSH OF 135 Q4H. LEFT COLOSTOMY BAG IN PLACE WITH LOOSE LIGHT BROWN STOOL, SLIGHT GAS NOTED, DRESSING CLEAN AND INTACT, NO OBVIOUS LEAKAGE. RIGHT SIDE FEMORAL CENTRAL LINE, TRIPLE LUMEN, DRESSING INTACT, INFUSING NS AT 20 ML/HR. LEFT UPPER SHOULDER DRESSING INTACT, LEFT HIP PRESSURE ULCER DRESSING INTACT, WILL FOLLOW WITH MD ORDER FOR WOUND CARE. V/S TAKEN ALL WITHIN PATIENTS BASELINE. BED IN LOWEST POSITION, UPDATED BOARD, EXPLAINED PLAN OF CARE. WILL CONTINUE TO MONITOR.
[2017-12-22 20:00] VITALS: BP 122/56
[2017-12-22] MEDS: NACL 0.9% 1,000 ML IV SCH (20:25)
[2017-12-22] MEDS: VIT-B COMP/VIT-C/FOLIC ACID 1 TAB GT SCH (20:29)
--- NOTE | 2017-12-22 22:00 | NUR ---
PT RESTING IN BED, NO SIGNS OF DISTRESS, SOFT WRIST RESTRAINTS REMOVED AND AND CIRCULATION ASSESSED, CONTINUE NEED FOR RESTRAINTS DUE TO PT CONTINUING TO REMOVE CENTRAL LINE, WILL CONTINUE TO MONITOR. CALL LIGHT WITHIN REACH.
--- NOTE | 2017-12-22 22:47 | NUR ---
RADIOLOGY AT BEDSIDE TO DO CHEST XRAY TO R/O PNEUMONIA.
[2017-12-23] VITALS (8 sets, daily range): BP systolic 113–147; BP diastolic 63–91
--- NOTE | 2017-12-23 00:05 | NUR ---
CIRCULATION ASSESSED, NO SIGNS OF COMPROMISE, WILL CONTINUE WITH SOFT WRIST RESTRAINTS DUE TO PAIN PULLING AT CENTRAL LINE.
[2017-12-23] MEDS: THERAHONEY WOUND DRESSING TP SCH ×2 (01:09→13:00)
--- NOTE | 2017-12-23 01:30 | NUR ---
WOUND CARE ON LEFT CHEST PROVIDED, SLIGHT ODOR NOTED, MINIMAL DRESSING, CLEANSED AND DRESSING CHANGED ACCORDING TO MD ORDER. WOUND ON LEFT HIP CHANGED AND CLEANSED ACCORDING TO MD ORDER. NG. G-TUBE TUBING AND FORMULA CHANGED, SUCTIONED X1 DUE TO SECRETIONS. PT IN BED, WILL CONTINUE WITH SOFT WRIST RESTRAINTS DUE TO PATIENT CONTINUING TO PULL AT CENTRAL LINE.
--- NOTE | 2017-12-23 04:00 | NUR ---
V/S TAKEN ALL WITHIN BASELINE, REMOVED SOFT WRIST RESTRAINTS FOR 15 MINS, CIRCULATION ASSESSED. PT ATTEMPTED TO REMOVE LEFT SHOULDER DRESSING, DRESSING REINFORCED WITH TAPE. WILL CONTINUE WITH SOFT WRIST RESTRAINTS FOR PT SAFETY ACCORDING TO MD ORDER.
[2017-12-23] MEDS ORDERED: VANCOMYCIN PER PHARMACY MC PRN (05:20)
[2017-12-23] MEDS ORDERED: cefTRIAXone 1,000 MG VIAL ONE (05:53)
--- NOTE | 2017-12-23 06:00 | NUR ---
WILL CONTINUE WITH WRIST RESTRAINTS, PT ATTEMPTING TO PULL OFF DRESSING. WILL CONTINUE TO MONITOR CIRCULATION
[2017-12-23] MEDS: BLOOD GLUCOSE MONITORING 1 DEV DEV FS SCH ×4 (06:12→20:23)
--- NOTE | 2017-12-23 07:00 | NUR ---
ENDORSED PT TO DAY SHIFT NURSE. PT STABLE.
--- NOTE | 2017-12-23 07:01 | NUR ---
RECEIVED REPORT FROM PM NURSE AT BEDSIDE. PT IS ON VENT, SETTINGS ARE FIO2 24, VT 500, RR 12, PEEP , FLOW 24. HAS G-TUBE FEEDING 40ML/HR, WITH 135 WATER FLUSH Q 4 HR. HAS THE CENTRAL LINE IN RT FEMORAL TRIPLE LUMEN, IVF @20 ML/HR. PT ON NEPHRO DIET. PT IS ON SOFT RESTRICTION TRO PREVENT PT PULLING HIS CENTRAL LINE, AND REACHES TO TAKE OFF HIS DRESSING OF HIS LFT CHEST AND TRACH. RENEWED TO BE AT 1031 AM. IS DUE FOR DIALYSIS TODAY. 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 PT FULL CODE. HAS THE DTI ON LFT HEEL, LFT HIP ULCER, I& D OF CHEST. PT ON FALL PRECAUTION, ASPIRATION PRECAUTION AND SEIZURE PRECAUTION. ALL SAFETY MEASURE IN PLACE. BED AT LOWER POSITION. WILL CONTINUE TO MONITOR PT.
--- NOTE | 2017-12-23 07:24 | NUR ---
PATIENT WAS RESTING BUT AWAKE AND ALERT WHEN I ARRIVED. O2 SATURATIONS WERE AT 99, PULSE AT 78 AND RATE AT 20. CLEAR BREATH SOUNDS. TOOK BIPAP OFF AND AFTER TREATMENT PLACED PATIENT ON 12L OXIMIZER. NOSE WAS PRESSED DOWN BUT NO BREAKDOWN OF SKIN WAS NOTED. AFTER 15 MINUTES ON OXIMIZER, PATIENT'S O2 SATURATIONS WERE AT 92%. WILL CONTINUE TO MONITOR Addendum: 12/23/17 at 1023 by Shari Gtz RT NOTE ENTERED ON WRONG PATIENT. THIS WAS MEANT FOR JARED CUEVAS IN ROOM 123-B.
--- NOTE | 2017-12-23 07:24 | NUR ---
PATIENT IS ALERT AND AWAKE. O2 SATURATIONS ARE 98%, RESPIRATIONS AT 30 AND PULSE AT 64. NO INDICATIONS FOR TREATMENT AT THIS TIME. BREATH SOUNDS WERE CLEAR. AMBU BAG AT BEDSIDE, ALARMS ON AND AUDIBLE AND VENT IS PLUGGED INTO RED OUTLET.
[2017-12-23 07:27] LABS: HEMATOCRIT 30.6 % (36-52); HEMOGLOBIN 9.7 g/dL (12.0-18.0); MEAN CORPUSCULAR HEMOGLOBIN 31 pg (27-31); MEAN CORPUSCULAR HGB CONC 32 g/dL (33-37); MEAN CORPUSCULAR VOLUME 99.1 fL (80-94); PLATELET COUNT (AUTO) 526 K/uL (140-450); RED BLOOD CELL COUNT(AUTO) 3.09 MIL/uL (4.20-6.10); RED CELL DISTRIBUTION WIDTH 18.2 % (11.6-13.7); WHITE BLOOD COUNT (AUTO) 17.6 K/uL (4.8-10.8)
[2017-12-23 07:43] LABS: MAGNESIUM 2.3 mg/dL (1.8-2.4); PHOSPHORUS 4.5 mg/dL (2.5-4.9)
[2017-12-23 07:55] LABS: EOSINOPHILS % (MANUAL) 4 % (0-4); LYMPHOCYTES % (MANUAL) 9 % (20-46); MONOCYTES % (MANUAL) 10 % (5-12)
[2017-12-23 07:56] LABS: CREATININE 4.6 mg/dL (0.7-1.3)
--- NOTE | 2017-12-23 08:15 | NUR ---
RELEASED RESTRAIN FROM PT HAND FOR 15 MIN. ROM AND CIRCULATION GOOD. PT CONTINUE TO ATTEMPT TO REACH THE CENTRAL LINE AND TRACH COLLAR. WILL CONTINUE SOFT RESTRAIN FOR PT SAFETY. CHARGE NURSE AWARE. WILL CONTINUE TO MONITOR PT.
[2017-12-23] MEDS: METOPROLOL 25 MG TAB PO SCH ×2 (09:00→20:52)
[2017-12-23] MEDS: AMIODARONE 200 MG TAB GT SCH (09:00)
[2017-12-23] MEDS: PANTOPRAZOLE 40 MG INJ VIAL IVP SCH (09:00)
[2017-12-23] MEDS ORDERED: INSULIN LANTUS 100 UNITS/ML 10 ML VIAL SUBQ SCH (09:00)
[2017-12-23] MEDS: FLUCONAZOLE 200 MG/NS PREMIX 100 ML IV SCH ×2 (09:00→19:02)
[2017-12-23] MEDS: levETIRAcetam 100 MG/ML ORASYR GT SCH ×2 (09:26→20:52)
[2017-12-23] MEDS: EPOETIN ALFA 10,000 UNITS/ML VIAL SUBQ SCH (09:26)
[2017-12-23] MEDS: LACTOBACILLUS RHAMNOSUS GG 1 EACH CAP GT SCH (09:26)
[2017-12-23] MEDS: VALPROIC ACID 250 MG/5 ML UDC GT SCH ×2 (09:26→20:52)
--- NOTE | 2017-12-23 09:30 | NUR ---
PT WITH HD NURSE, IV AND BP MEDS ON HOLD AT THIS TIME. ADMINISTERED MEDS ORDERED VIA G-TUBE. RESIDUAL 5 ML. TOLERATED WELL. FLUSHED WITH 30 ML WATER BEFORE AND AFTER ADMINISTERING MEDS. NO SIGN OF DISTRESS NOTED. WILL CONTINUE TO MONITOR PT.
--- NOTE | 2017-12-23 10:00 | NUR ---
TP WITH HD NURSE. REMOVED THE SOFT RESTRAINS FRO 15 MIN. MADE MD AWARE . CHARGE NURSE AWARE. PT CIRCULATION ON BOTH ARMS WERE GOOD. GOOD ROM ON BOTH EXTREMITY. CHANGE THE PT POSITION. REAPPLIED RESTRAIN PER MD ORDER PT TRIES PULLING OUT HIS CENTRAL LINE AND TRACH. WILL CONTINUE TO MONITOR PT.
--- NOTE | 2017-12-23 12:00 | NUR ---
CHECKED ON PT. NOTED. BS 282, WILL ADMINISTER INSULIN ON SLIDING SCALE. RELEASED SOFT RESTRAIN FROM PT FOR 15 MIN. HOSE SPRAYER AT BEDSIDE, REPOSITIONED PT. NO SIGN OF DISTRESS NOTED. PT HAS SLIGHT STIFFNESS ON RT HAND, MD NOTIFIED. STATES IS DUE TO PT HAVING HX OF STROKE. WILL CONTINUE TO MONITOR PT. PT NON VERBAL. TRACH COLLAR NOT SOILED, DRY. WILL CHANGE THE TRACH COLLAR IF SOILED. PT CALM. IS APHASIC, NO SIGN OF DISTRESS NOTED. WILL CONTINUE TO MONITOR PT.
[2017-12-23] MEDS: INSULIN LISPRO SLIDING SCALE 100 UNITS/ML VIAL SUBQ PRN ×3 (13:43→21:16)
[2017-12-23] MEDS ORDERED: VANCOMYCIN 500 MG in DEXTROSE 5% 100 ML IV SCH (15:00)
--- NOTE | 2017-12-23 16:00 | NUR ---
CHECKED ON PT. RELEASED PT RESTRAIN FRO 15 MIN. STUDENT NURSE AT BEDSIDE. ASSESSED PT CAP REFILL ON BOTH HAND, WITHIN NORMAL LIMITS. APPLIED BACK SOFT RESTRAIN TO PREVEN PT FROM SELF HARM PT KEEPS TRYING TO PUL THE TRACH AND FEMORAL CENTRAL LINE. NO SIGN OF DISTRESS NOTED. ALL SAFETY MEASURE IN PLACE. ADMINISTERED VANCOMYCIN PER PHARMACY PROTOCOL. WILL CONTINUE. CHANGED WOUND DRESSING ON PT LFT HIP AND [PLACE DRY DRESSING ON PT LFT HEEL. PT CHEST SURGICAL DRESSING NOT CHANGED DRESSING IS INTACT AND NOT SOILED. WILL CONTINUE MONITORING PT.
--- NOTE | 2017-12-23 18:29 | NUR ---
CHECKED ON PT. REMOVED SOFT WRIST RESTRAIN FROM PT. KEEPS TRYING REACHING THE TRACH TUBE AND FEMORAL PICC LINE. APPLIED LIP MOISTURIZER TO PT. OSTOMY POUCH INTACT, HAS SMALL AMOUNT OF LIQUID STOOL IN POUCH. ABDOMEN SLIGHT DISTENDED, SOFT TRO TOUCH. CHECKED THE G-TUBE RESIDUAL, 5 ML OBTAINED. REPOSITIONED PT, DID RANGE OF MOTION ON PT. RT ARM HAS SLIGHT RESISTANCE WHILE PERFORMING ROM, SLIGHT EDEMATOUS. MD AWARE. O2 SAT 100% ON VENT TO TRACH SETTING. TRACH COLLAR DRY AND INTACT. NO SIGN OF DISTRESS NOTED. ALL SAFETY MEASURE IN PLACE. NO EPISODES OF SEIZURE OBSERVED DURING SHIFT. WILL CONTINUE TO MONITOR PT.
--- NOTE | 2017-12-23 19:15 | NUR ---
RECEIVED BEDSIDE REPORT FROM DAY SHIFT NURSE PAT. PT ON CONTACT ISOLATION FOR MRSA IN NARES, AND MRSA ON LEFT CHEST WOUND. MDRO, AND GROUND HOST/HOSTESS IN SPUTUM. PT IS ON VENTILATOR SETTINGS: FIO2 24%, VT 500, RR 12, PEEP 5 , FLOW 24. NO SIGNS OF ACUTE RESPIRATORY DISTRESS, TRAC DRESSING INTACT. LEFT SIDED G-TUBE, DRESSING INTACT, INFUSING NEPHRO FORMULA AT 40ML/HR, WITH 135 ML/HR WATER FLUSH Q4H. CENTRAL LINE IN RIGHT FEMORAL, DRESSING INTACT, TRIPLE LUMEN INFUSING IVF @20 ML/HR NS. NOTED SOFT WRIST RESTRAINTS APPLIED DUE TO PATIENT CONTINUING TO PULL HIS CENTRAL LINE, AND REACHES TO TAKE OFF HIS DRESSING ON HIS LFT CHEST WOUND. LEFT SIDED COLOSTOMY BAD EMPTIED, 150 ML LIGHT BROWN STOOL, GAS NOTED, DRESSING INTACT. PT FULL CODE. HAS THE DTI ON LFT HEEL, LFT HIP ULCER, I& D OF CHEST. PT ON FALL PRECAUTION, ASPIRATION PRECAUTION AND SEIZURE PRECAUTION. ALL SAFETY MEASURE IN PLACE. BED AT LOWER POSITION. WILL CONTINUE TO MONITOR PT.
--- NOTE | 2017-12-23 19:15 | NUR ---
ENDORSED PT TO PM NURSE AT BEDSIDE FOR CONTINUITY OF CARE. PT IN STABLE CONDITION.
--- NOTE | 2017-12-23 20:00 | NUR ---
REMOVED SOFT WRIST RESTRAINTS. CIRCULATION ASSESSED NO COMPROMISE NOTED, PT CONTINUES TO ATTEMPT TO REMOVE CENTRAL LINE. AREA COVERED WITH BLANKET. V/S TAKEN ALL WITHIN PTS BASELINE. CALL LIGHT WITHIN REACH, WILL CONTINUE TO MONITOR.
[2017-12-23] MEDS: NACL 0.9% 1,000 ML IV SCH (20:25)
[2017-12-23] MEDS: VIT-B COMP/VIT-C/FOLIC ACID 1 TAB GT SCH (20:52)
--- NOTE | 2017-12-23 22:00 | NUR ---
REMOVED SOFT WRIST RESTRAINTS FOR 15 MINS, CIRCULATION ASSESSED. NO COMPROMISED NOTED. PT ATTEMPTING TO REMOVE DRESSING. EXPLAINED TO PT THAT HE NEEDS THE DRESSING TO KEEP WOUND CLEAN AND HELP HEAL. WILL CONTINUE TO MONITOR.
[2017-12-24] VITALS: BP 137/61
--- NOTE | 2017-12-24 | NUR ---
V/S TAKEN, ALL WITHIN PTS BASELINE. G-TUBE FORMULA AND TUBING CHANGED. DRESSING AT G-TUBE CLEAN AND INTACT. 5 ML RESIDUALS ASPIRATED. REMOVED SOFT WRIST RESTRAINTS FOR 15 MINS, CIRCULATION ASSESSED VIA CAP REFILL, NO COMPROMISE NOTED. PT CONTINUES TO ATTEMPT TO REMOVE LEFT SIDED DRESSING. WILL REAPPLY SOFT WRIST RESTRAINTS DUE TO PATIENT AT RISK FOR INJURY. WILL CONTINUE TO MONITOR.
[2017-12-24] MEDS: THERAHONEY WOUND DRESSING TP SCH ×3 (01:15→12:35)
--- NOTE | 2017-12-24 02:00 | NUR ---
REMOVED SOFT WRIST RESTRAINTS, ASSESSED CIRCULATION AND NO COMPROMISE NOTED. LEAK NOTED ON VENTILATOR ALARM. CALL RT INSTRUCTED TO HYPEROXYGENATE, O2 SAT AT 99%. HIGH PRESSURE ALARM WENT OFF, SUCTIONED PT 2X, RESOLVED. RT AT BEDSIDE, PT IN NO SIGNS OF DISTRESS.
[2017-12-24 04:00] VITALS: BP 133/68
--- NOTE | 2017-12-24 04:00 | NUR ---
REPOSITIONED PT FROM COMFORT, SOFT WRIST RESTRAINTS REMOVED, ASSESSED CIRCULATION AND NO COMPROMISE NOTED. PROVIDED ROM EXERCISES. WILL CONTINUE WITH SOFT WRIST RESTRAINTS DUE TO PT ATTEMPTING TO PULL OFF LEFT CHEST DRESSING. SUCTIONED PT X1, O2 SAT 100%. WILL CONTINUE TO MONITOR.
[2017-12-24] MEDS: INSULIN LISPRO SLIDING SCALE 100 UNITS/ML VIAL SUBQ PRN ×4 (05:48→21:59)
--- NOTE | 2017-12-24 05:51 | NUR ---
PT BLOOD GLUCOSE 392, MEDICATED WITH INSULIN 10 U. DUE ROCEPHIN INFUSING AT 100 ML/HR. REMOVED SOFT WRIST RESTRAINTS, ASSESSED CIRCULATION, WILL CONTINUE WITH SOFT WRIST RESTRAINTS ACCORDING TO MD ORDER. WILL CONTINUE TO MONITOR.
--- NOTE | 2017-12-24 07:12 | NUR ---
ENDORSED PT TO DAY SHIFT NURSE EKTA, PT STABLE.
--- NOTE | 2017-12-24 07:14 | NUR ---
RECEIVED BEDSIDE REPORT FROM DETECTIVE SUPERVISOR NURSE. PATIENT IS AWAKE, ALERT AND ORIENTEDX1. PATIENT IS APHASIC. TRACH TO VENT. VENT SETTINGS FIOS 24 VT 5800 RR 12 FLOW 45 PEEP 5 PS 12. NO SIGNS OF DISTRESS. PATIENT IS BEDBOUND. SKIN HAS L CHEST SURGICAL WOUND, DRESSING CLEAN, DRY AND INTACT. L HIP PRESSURE ULCER, DRESSING CLEAN, DRY AND INTACT. AND L FOOT DTI. HEEL RAISERS. FEEDING THROUGH GTUBE NEPHRO 40ML HR, H20 FLUSH 135 ML Q4HRS. GTUBE IS CLEAN, DRY AND INTACT. COLOSTOMY BAG PRESENT. WRIST RESTRAINTS IN PLACE. PATIENT SCRATCHES AND ATTEMPTS TO REMOVE LINES. SCRATCHES ON BLE. FALL RISK, ASP, SEIZURE AND CONTACT PRECAUTIONS ARE IN PLACE. WILL CONTINUE TO MONITOR THE PATIENT
[2017-12-24] MEDS: BLOOD GLUCOSE MONITORING 1 DEV DEV FS SCH ×4 (07:15→21:53)
[2017-12-24 08:00] VITALS: BP 121/76
--- NOTE | 2017-12-24 09:00 | NUR ---
GAVE ORAL CARE. PATIENT TOLERATED WELL. WILL CONTINUE TO MONITOR
[2017-12-24] MEDS: PANTOPRAZOLE 40 MG INJ VIAL IVP SCH (09:13)
[2017-12-24 09:15] LABS: ANION GAP 18.6 (8-16); CARBON DIOXIDE 18.4 mmol/L (21-32)
[2017-12-24 09:16] LABS: MAGNESIUM 2.2 mg/dL (1.8-2.4); PHOSPHORUS 4.6 mg/dL (2.5-4.9)
[2017-12-24 09:17] LABS: HEMATOCRIT 29.3 % (36-52); MEAN CORPUSCULAR HEMOGLOBIN 31 pg (27-31); MEAN CORPUSCULAR HGB CONC 31 g/dL (33-37); MEAN CORPUSCULAR VOLUME 101.3 fL (80-94); PLATELET COUNT (AUTO) 588 K/uL (140-450); RED BLOOD CELL COUNT(AUTO) 2.89 MIL/uL (4.20-6.10); RED CELL DISTRIBUTION WIDTH 18.6 % (11.6-13.7)
[2017-12-24 09:19] LABS: CREATININE 4.3 mg/dL (0.7-1.3)
[2017-12-24 09:33] LABS: EOSINOPHILS % (MANUAL) 3 % (0-4); LYMPHOCYTES % (MANUAL) 8 % (20-46); MONOCYTES % (MANUAL) 3 % (5-12)
[2017-12-24] MEDS: LACTOBACILLUS RHAMNOSUS GG 1 EACH CAP GT SCH (10:18)
[2017-12-24] MEDS: levETIRAcetam 100 MG/ML ORASYR GT SCH ×2 (10:18→21:37)
[2017-12-24] MEDS: AMIODARONE 200 MG TAB GT SCH (10:18)
[2017-12-24] MEDS: VALPROIC ACID 250 MG/5 ML UDC GT SCH ×2 (10:18→21:37)
[2017-12-24] MEDS: METOPROLOL 25 MG TAB PO SCH ×2 (10:19→21:39)
[2017-12-24] MEDS: INSULIN LANTUS 100 UNITS/ML 10 ML VIAL SUBQ SCH (10:19)
--- NOTE | 2017-12-24 10:20 | NUR ---
ADMINISTERED MEDS. PATIENT TOLERATED WELL. WILL CONTINUE TO MONITOR THE PATIENT.
--- NOTE | 2017-12-24 11:00 | NUR ---
PERFORMED WOUND CARE. ASKED DR LLANES IF HE IS AWARE OF THE BUMP NEARED I&D HE CAME IN AND TOOK A LOOK, HE ORDERED TO GET AN IMAGE DONE TO CHECK IF THERE IS AN ABSCESS. CLEANSED WOUNDS, MEASUREDS AND PUT RAÚLONEY, MINIMAL SECRETIONS ON BOTH WOUNDS. PHOTOS TAKEN. WILL CONTINUE TO MONITOR THE PATIENT
[2017-12-24 12:00] VITALS: BP 139/71
--- NOTE | 2017-12-24 12:01 | NUR ---
PT TOLERATING VENT SETTINGS WELL AT THIS TIME. PT NOT IN ANY DISTRESS. WILL CONTINUE TO MONITOR.
[2017-12-24] MEDS: PIPER/TAZO 2.25GM/D5W PREMIX 50 ML IV SCH ×2 (12:46→21:54)
--- NOTE | 2017-12-24 12:56 | NUR ---
ADMINISTERED MEDS. PATIENT TOLERATED WELL. WILL CONTINUE TO MONITOR THE PATIENT. BED IN LOW POSITION. BED ALARM IS ON.
--- NOTE | 2017-12-24 15:00 | NUR ---
PATIENT GOT AN US DONE OF THE L CHEST BUMP TO RULE OUT ABSCESS. REMOVED DRESSING, CLEANSED, PAT DRY AND APPLIED NEW DRESSING. WILL CONTINUE TO MONITOR THE PATIENT
[2017-12-24 16:00] VITALS: BP 118/54
--- NOTE | 2017-12-24 17:01 | NUR ---
PATIENT IS SLEEPING. NO SIGNS OF DISTRESS. BED IN LOW POSITION. BED ALARM IS ON
--- NOTE | 2017-12-24 18:06 | NUR ---
PT REMAINS ON DOCUMENTED VENT SETTINGS. PT NOT SOB AND NOT IN RESPIRATORY DISTRESS AT THIS TIME. TRACH REMAINS SECURE WITH A PATENT AIRWAY. VENT ALARMS REMAIN ON AND FUNCTIONING.
--- NOTE | 2017-12-24 19:20 | NUR ---
GAVE BEDSIDE REPORT TO SILVER STEWARD NURSE. ENDORSED PATIENT IN STABLE CONDITION
--- NOTE | 2017-12-24 19:20 | NUR ---
RECEIVED ENDORSEMENT FROM GEMA BETTENCOURT DAYSHIFT NURSE FOR CONTINUITY OF CARE, AT BEDSIDE, PT IN STABLE CONDITION.
[2017-12-24 20:00] VITALS: BP 117/82
[2017-12-24] MEDS: NACL 0.9% 1,000 ML IV SCH (20:25)
--- NOTE | 2017-12-24 21:00 | NUR ---
PT AOX1 ON A WOUND BED WITH ALL FALLS PRECAUTIONS, ASPIRATION PRECAUTIONS AND SEIZURE PRECAUTIONS IN PLACE. IV SITE IS A TRIPLE LUMEN CATHETER RUNNING AT 20MLS/HR. PT NPTED WITH SCTRATCHES ON BOTH LEGS WHERE RESIDENT HAD PREVIOUSLY SCRATCHED HIMSELF TO BLEEDING. THE SOFT CUFFS RESTAINTS ARE ON BILATERAL WRISTS WITH ABOUT 2 FINGERS THAT CAN FIT BETWEEN CUFF AND SKIN. PT HAS LESS THAT 2 SEC CAP REFILL NOTED. GT CHECKED FOR RESIDUAL, NO RESIDUAL NOTED, AND GT SITE FLUSHED PATENT. PT RECEIVED MEDS DUE AT THIS TIME VIA GT AND V/S FOLLOWS : T 97.7 P 63 R 20 B/P 117/82 02 IS 96% WITH VENT SETTINGS FOLLOWS: FIOS 24 VT 500 R 12 FLOW 45 PEEP 5. PT FINGERSTICK 193 AND GIVEN HUMOLOG PER S/S.
[2017-12-24] MEDS: VIT-B COMP/VIT-C/FOLIC ACID 1 TAB GT SCH (21:37)
--- NOTE | 2017-12-24 22:30 | NUR ---
RESTRAINTS RELEASED FOR APPROX 15 MINUTES, CAP REFILL LESS THAN 2 SECONDS, SKIN INTACT UNDER RESTRAINTS, PT WAS HOWEVER SCRATCHING FACE AND HE STARTED TO SCRATCH UNDER TRACH COLLAR, PT DID NOT TRY TO PULL OUT TRACH OR FEMORAL TRIPLE LUMEN BUT HE WA TRYING TO SCRATCH HIS LEG AT THAT AREA. PT WAS UNDER OBSERVATION WHILE RESTRAINTS ARE RELEASED.
[2017-12-25] VITALS: BP 123/57
--- NOTE | 2017-12-25 00:30 | NUR ---
PT NEPHRO GT FEEDING REPLACED PER ORDER, DRESSING TO RIGHT CHEST AND DRESSING OF FEMORAL LEG INTACT NO S/S OF INFECTION NOTED, V/S FOLLOWS T 98.1 P 60 R 16 B/P 123/57 02 96. P IS VENT TO TRACH. RESPIRATORY IN ROOM ASSESSING PT NO S/S OF PAIN OR DISTRESS NOTED.
[2017-12-25] MEDS: THERAHONEY WOUND DRESSING TP SCH ×3 (01:00→13:43)
--- NOTE | 2017-12-25 02:00 | NUR ---
RT IN ROOM EVALUATING PT , RESTRAINS RELEASED . PT SCRATCHED SELF BUT DID NOT BREAK SKIN.
[2017-12-25 04:00] VITALS: BP 116/57
--- NOTE | 2017-12-25 04:00 | NUR ---
PT IN BED WOUND CARE PROVIDED , NEW COLOSTOMY BAG APPLIED, PT TURNED AND CHANGED.
--- NOTE | 2017-12-25 05:00 | NUR ---
ZOSYN IV HUNG ORDERED. PT HOB UP ALL FALLS, SEIZURE AND ASPIRATION PRECAUTIONS IN PLACE. PT SLEEPING.
[2017-12-25] MEDS: PIPER/TAZO 2.25GM/D5W PREMIX 50 ML IV SCH ×3 (05:28→21:46)
[2017-12-25] MEDS: BLOOD GLUCOSE MONITORING 1 DEV DEV FS SCH ×4 (06:51→21:00)
[2017-12-25] MEDS: INSULIN LISPRO SLIDING SCALE 100 UNITS/ML VIAL SUBQ PRN ×2 (06:55→12:18)
--- NOTE | 2017-12-25 07:20 | NUR ---
REPORT GIVEN AT BEDSIDE FOR CONTINUITY OF CARE, PT IN STABLE CONDITION
--- NOTE | 2017-12-25 07:33 | NUR ---
PATIENT IS AWAKE AND ALERT. NO INDICATIONS FOR TREATMENT AT THIS TIME. TRACH SECURE AND UNOBSTRUCTED. ALARMS ARE ON AND AUDIBLE. AMBU-BAG AT BEDSIDE. ALARMS ON AND AUDIBLE. VENT PLUGGED INTO RED OUTLET.
--- NOTE | 2017-12-25 07:50 | NUR ---
PATIENT AWAKE, RESPONSIVE TO TOUCH. RESPIRATION EVEN, UNLABOR ON TRACH TO VENT. SKIN DRY AND WARM. RIGHT FEMORAL CENTRAL LINE PATIENT AND INTACT. GTUBE AND COLOSTOMY BAG DRY AND INTACT. PATIENT CONTINUED TO TRY TO SCRATCH, WRIST RESTRAINT IS ENSURED. PLAN OF CARE WAS DISCUSSED WITH PATIENT. BED AT LOW POSITION, SIDE RAILS UP. BED ALARM ACTIVE. FALL RISK AND SEIZURE RISK PRECAUTION WERE ENSURED.
[2017-12-25 08:00] VITALS: BP 120/57
--- NOTE | 2017-12-25 08:30 | NUR ---
PATIENT AWAKE, RESPONSIVE. RESPIRATION EVEN, UNLABOR ON VENT. ORAL CARE WAS GIVEN. MEDS WERE GIVEN PER ORDER. RESIDUAL CHECKED WITH 5ML. PATIENT TOLERATING FEEDING WELL.
[2017-12-25] MEDS: METOPROLOL 25 MG TAB PO SCH ×2 (09:00→21:24)
[2017-12-25] MEDS: VALPROIC ACID 250 MG/5 ML UDC GT SCH ×2 (09:02→21:20)
[2017-12-25] MEDS: LACTOBACILLUS RHAMNOSUS GG 1 EACH CAP GT SCH (09:03)
[2017-12-25] MEDS: PANTOPRAZOLE 40 MG INJ VIAL IVP SCH (09:03)
[2017-12-25] MEDS: levETIRAcetam 100 MG/ML ORASYR GT SCH ×2 (09:03→21:22)
[2017-12-25] MEDS: AMIODARONE 200 MG TAB GT SCH (09:04)
[2017-12-25] MEDS: INSULIN LANTUS 100 UNITS/ML 10 ML VIAL SUBQ SCH (09:16)
[2017-12-25 10:12] LABS: BASOPHILS # (AUTO) 0.2 K/uL (0.00-0.22); BASOPHILS % (AUTO) 1.1 % (0.0-2.0); EOSINOPHILS # (AUTO) 0.9 K/uL (0-0.4); HEMATOCRIT 29.3 % (36-52); LYMPHOCYTES # (AUTO) 0.9 K/uL (2.0-11.5); LYMPHOCYTES % (AUTO) 6.1 % (20.5-51.1); MEAN CORPUSCULAR HEMOGLOBIN 31 pg (27-31); MEAN CORPUSCULAR HGB CONC 31 g/dL (33-37); MEAN CORPUSCULAR VOLUME 99.8 fL (80-94); MONOCYTES # (AUTO) 0.9 K/uL (0.8-1.0); MONOCYTES % (AUTO) 5.6 % (1.7-9.3); NEUTROPHILS # (AUTO) 12.5 K/uL (1.8-7.7); NEUTROPHILS % (AUTO) 81.2 % (42.2-75.2); PLATELET COUNT (AUTO) 620 K/uL (140-450); RED BLOOD CELL COUNT(AUTO) 2.93 MIL/uL (4.20-6.10); RED CELL DISTRIBUTION WIDTH 18.5 % (11.6-13.7); WHITE BLOOD COUNT (AUTO) 15.4 K/uL (4.8-10.8)
[2017-12-25 10:30] LABS: ANION GAP 16.2 (8-16); CARBON DIOXIDE 19.9 mmol/L (21-32); POTASSIUM 4.1 mmol/L (3.5-5.1)
--- NOTE | 2017-12-25 10:30 | NUR ---
PATIENT AWAKE, RESPONSIVE TO NAME. RESPIRATION EVEN, UNLABOR ON VENT. NO DISTRESS NOTED AT THIS TIME. WRIST RESTRAINT CONTINUED TO BE ENFORCED TO PREVENT SCRATCHING. PATIENT WAS REPOSITIONED. WOUND CARE WAS GIVEN. DR. KINGSLEY WAS MADE AWARE OF CR 5.0. PHYSICIAN WILL SEE PATIENT.
[2017-12-25 10:36] LABS: MAGNESIUM 2.3 mg/dL (1.8-2.4); PHOSPHORUS 4.9 mg/dL (2.5-4.9)
[2017-12-25 12:00] VITALS: BP 127/58
--- NOTE | 2017-12-25 12:15 | NUR ---
PATIENT WAS AWAKE, RESPONSIVE TO NAME. RESPIRATION EVEN, UNLABOR ON VENT. FLACC 0. WOUND DRESSING WERE CHANGE. ORAL CARE WAS GIVEN. NO DISTRESS NOTED AT THIS TIME.
--- NOTE | 2017-12-25 13:09 | NUR ---
WOUND CARE RE-EVALUATION NOTE: LEFT HIP RESPONDING TO TREATMENT AND HEALING IN PROGRESS. LEFT UPPER CHEST S/P I&D SURGICAL WOUND, WOUND BED IS RED, WITH SMALL AMOUNT PURULENT DRAINAGE, MILD ODOR ,MRSA POSITIVE. TREATMENT DISCUSSED WITH DR. KINGSLEY, RECOMMENDATIONS GIVEN TO CONTINUE THERAHONEY DRESSING SHEET TO LEFT UPPER CHEST AND LEFT HIP. PER DR. KINGSLEY FURTHER EVALUATION WILL BE DONE BY SURGEON WITH POSSIBLE ABSCESSES DEVELOPED.
--- NOTE | 2017-12-25 14:00 | NUR ---
PATIENT IS SLEEPING COMFORTABLY. RESPIRATION EVEN, UNLABOR ON VENT. NO DISTRESS NOTED AT THIS TIME
--- NOTE | 2017-12-25 15:54 | NUR ---
PATIENT WAS SLEEPING COMFORTABLY, RESPONSIVE TO NAME. RESPIRATION EVEN, UNLABOR ON VENT. VS IS STABLE. FLACC 0. PATIENT WAS REPOSITIONED TO RIGHT LATERAL
[2017-12-25 16:00] VITALS: BP 121/64
--- NOTE | 2017-12-25 18:00 | NUR ---
SURGICAL I&D CONSENT WERE OBTAINED, SIGNED BY 2 MDS, PATIENT WAS UNABLE TO SIGN.
--- NOTE | 2017-12-25 18:32 | NUR ---
PATIENT AWAKE, RESPONSIVE TO NAME. RESPIRATION EVEN, UNLABOR ON VENT. GTUBE, COLOSTOMY BAG DRY AND INTACT. CENTRAL LINE PATENT AND INTACT. NO DISTRESS NOTED AT THIS TIME
--- NOTE | 2017-12-25 19:41 | NUR ---
ENDORSEMENT GIVEN TO THE VOCATIONAL AIDE NURSE. PATIENT IS STABLE AT THIS TIME
--- NOTE | 2017-12-25 19:41 | NUR ---
RECEIVED REPORT AT BEDSIDE FROM SRIDEVI BETTENCOURT DAYSHIFT NURSE , PT IN STABLE CONDITION.
--- NOTE | 2017-12-25 19:54 | NUR ---
RECEIVED ON A [employer] Communications[employer]APE R860 VENTILATOR PLUGGED INTO RED OUTLET TOLERATING WELL WITHOUT INCIDENT TO A PORTEX DCT #7 AIRWAY SECURED WITH A CHITRA TRACH TIE CUFF PRESSURE CHECKED NOTED AMBU BAG NOTED AT HOB LOC AWAKE STABLE BREATH SOUNDS RHONCHI AT RIGHT SIDE TO CLEAR AT LEFT SIDE WITH GOOD CHEST RISE BILATERAL DEEP TRACHEAL SUCTION FOR SMALL THIN YELLOW SECRETIONS AIRWAY PATENT
[2017-12-25 20:00] VITALS: BP 120/69
--- NOTE | 2017-12-25 20:31 | NUR ---
PT IN LOW BED WITH ALL SIDE RAILS UP X 4 WITH ALL FALLS, SEIZURE AND ASPIRATIONS PRECAUTIONS IN PLACE. PT HAS BILATERAL UPPER EXTREMITY RESTRAINTS FOR SCRATCHING SELF AND TRYING TO PULL ON TRACH / OR FEMORAL CENTRAL LINE.PT RESTRAINTS RELEASED FOR 10 MINUTES AND PT DID EVENTUALLY TRIED TO SCRATCH UNDER TRACH COLLAR NEXT TO TRACH. PT SKIN INTACT UNDER RESTRAINTS CIRCULATION GOOD WITH CAP REFILL LESS THAN 2 SECONDS. PT WAS RESTRAINED AGAIN AFTER 10 MINUTES RESTRAINTS ARE LOOSE ENOUGH TO FIT 2 FINGERS. PT HOB UP 45% LUNGS CLEAR AND POSITIVE B/S ALL 4 QUADS. PT DRESSINGS TO LEFT CHEST , LEFT HIP AND LEFT HEEL INTACT. PT WEARING HEEL PROTECTORS. PT V/S FOLLOWS T 97.6 P 64 R 20 B/P 120/69 02 100 % . PT IS VENT TO TRACH AND RT IS AT BEDSIDE EVALUATING PT. IS ON 3L VIA N/C. NS IS RUNNING AT 20. GT SITE INTACT WITH NO RESIDUAL NOTED GT RUNNING NEPHRO ORDERED.
[2017-12-25] MEDS: NACL 0.9% 1,000 ML IV SCH (21:19)
[2017-12-25] MEDS: VIT-B COMP/VIT-C/FOLIC ACID 1 TAB GT SCH (21:23)
--- NOTE | 2017-12-25 21:33 | NUR ---
STABLE BREATH SOUNDS CLEAR BILATERAL WITH GOOD CHEST RISE TING/RN AT BEDSIDE
--- NOTE | 2017-12-25 21:35 | NUR ---
[PT GIVEN ORDERED MEDICATION KEPPRA DEPAKOTE AND NEPHRO - VITAMIN VIA GT. GT FLUSHED PATENT AND ZOSYN IV ABT.
--- NOTE | 2017-12-25 23:24 | NUR ---
RESPIRATORY AT BEDSIDE CHANGING PT TRACH. NO S/S OF PAIN OR DISTRESS NOTED. PT F/S 91 NO COVERAGE NEEDED.
--- NOTE | 2017-12-25 23:37 | NUR ---
ASLEEP RESTING COMFORTABLY BREATH SOUNDS CLEAR AT LEFT SIDE DECREASED AT RIGHT GOOD CHEST AIRWAY PATENT TRACH CARE DONE
[2017-12-26] VITALS: BP 124/67
--- NOTE | 2017-12-26 | NUR ---
PT IN LOW BED ALL PRECAUTIONS IN PLACE V/S FOLLOWS T 97.7 P 54 R 18 B/P 124/67 02 97%. PT TURNED AND CHANGED AND WOUND CARE PROVIDED.
--- NOTE | 2017-12-26 01:00 | NUR ---
SPOKE WITH DR. BRADFORD RESIDENT MD REGARDING PT SCRATCHING, DR. BRADFORD ORDERED BENADRLY 25MG. GAVE TO PT VIA GT. TUBE AND PT REMAINS NPO DUE TO PROCEDURE TOMMORROW.
--- NOTE | 2017-12-26 01:29 | NUR ---
NO EVIDENCE OF PULMONARY DISTRESS NOTED GOOD CHEST RISE PATENT AIRWAY
[2017-12-26] MEDS: THERAHONEY WOUND DRESSING TP SCH ×3 (01:31→13:00)
[2017-12-26] MEDS: ALBUTEROL SULFATE/IPRATROPIU 3 ML SOL IH PRN (03:23)
--- NOTE | 2017-12-26 03:24 | NUR ---
NO DISTRESS NOTED FAINT EXP WHEEZE AT RIGHT SIDE HHN PRN THERAPY GIVEN AT THIS TIME AIRWAY PATENT
[2017-12-26 04:00] VITALS: BP 108/55
[2017-12-26] MEDS: PIPER/TAZO 2.25GM/D5W PREMIX 50 ML IV SCH ×3 (04:38→21:03)
--- NOTE | 2017-12-26 05:28 | NUR ---
RESTING WELL GOOD CHEST RISE BREATH SOUNDS RHONCHI RIGHT SIDE TO CLEAR LEFT SIDE DEEP TRACHEAL SUCTION FOR SMALL THI YELLOW SECRETINS AIRWAY PATENT
[2017-12-26] MEDS: DEXT 5% /NACL 0.9% 1,000 ML IV SCH ×2 (05:35→15:10)
--- NOTE | 2017-12-26 05:39 | NUR ---
NEW ORDER NOTED FROM DR. BRADFORD, FOR D5NS AT 100MLS/HR. PT IS NPO BUT FINGERSTICK IS LOW AT 67. DR BRADFORD NOTIFIED AND SHE ORDERED D5AND NS AT 100MLS/HR, ORDER CARRIED OUT.
[2017-12-26] MEDS: BLOOD GLUCOSE MONITORING 1 DEV DEV FS SCH ×4 (06:55→21:00)
--- NOTE | 2017-12-26 07:30 | NUR ---
GAVE REPORT TO KB AT BEDSIDE FOR CONTINUITY OF CARE, PT IN STABLE CONDITION.
--- NOTE | 2017-12-26 07:35 | NUR ---
RECEIVED PT FROM CALL CENTER RECRUITER NURSE, TING, PT IS AWAKE BUT NO-VERBAL AND INCOMPREHENSIBLE. FALL AND SAFETY PRECAUTION ENFORCED, YELLOW SIGN, YELLOW GOWN AND YELLOW ARM BAND WERE PLACED, BED IN LOW POSITION AND CALL LIGHT WITHIN REACH. PT HAS A CENTRAL LINE ON THE RT FEMORAL TRIPLE LUMEN FOR IV AND DIALYSIS ACCESS,PT IS SCHEDULED FOR DIALYSIS TODAY AT 0800. DRESSINGS NOTED ON THE LEFT CHEST AND LEFT HIP, INTACT AND DRY. PT HAS A G-TUBE AND COLOSTOMY BAG IN PLACE, INTACT, AND ON A TRACH TO VENT AT FIO2 AT 24% AT A RATE OF 12.NO SIGN OF DISTRESS NOTED AND WILL CONTINUE TO MONITOR PT.
[2017-12-26 07:48] LABS: BASOPHILS # (AUTO) 0.1 K/uL (0.00-0.22); EOSINOPHILS # (AUTO) 0.8 K/uL (0-0.4); EOSINOPHILS % (AUTO) 6.5 % (0.0-4.0); HEMATOCRIT 26.8 % (36-52); HEMOGLOBIN 8.6 g/dL (12.0-18.0); LYMPHOCYTES # (AUTO) 0.9 K/uL (2.0-11.5); LYMPHOCYTES % (AUTO) 6.9 % (20.5-51.1); MEAN CORPUSCULAR HEMOGLOBIN 32 pg (27-31); MEAN CORPUSCULAR HGB CONC 32 g/dL (33-37); MEAN CORPUSCULAR VOLUME 99.2 fL (80-94); MONOCYTES # (AUTO) 0.8 K/uL (0.8-1.0); MONOCYTES % (AUTO) 6.3 % (1.7-9.3); NEUTROPHILS # (AUTO) 10.3 K/uL (1.8-7.7); NEUTROPHILS % (AUTO) 79.3 % (42.2-75.2); PLATELET COUNT (AUTO) 583 K/uL (140-450)
[2017-12-26 08:00] VITALS: BP 115/58
[2017-12-26 08:15] LABS: ANION GAP 18.4 (8-16); CARBON DIOXIDE 18.6 mmol/L (21-32)
[2017-12-26] MEDS: METOPROLOL 25 MG TAB PO SCH ×2 (09:00→21:04)
[2017-12-26] MEDS: AMIODARONE 200 MG TAB GT SCH (09:00)
[2017-12-26 09:11] LABS: PROTHROMBIN TIME 13.6 secs (10.8-13.4)
[2017-12-26 09:14] LABS: CREATININE 5.4 mg/dL (0.7-1.3)
--- NOTE | 2017-12-26 09:17 | NUR ---
RECEIVED A CRITICAL LAB REPORT FROM DERRICK FOR THE PT'S BUN WHICH IS 67 AND CREATININE IS 5.4. WILL INFORM THE MD.
--- NOTE | 2017-12-26 09:31 | NUR ---
CALLED DIALYSIS, ALBERT, TO ASK IF SHE WILL BE DOING DIALYSIS TO THE PT AND DIALYSIS NURSE, ALBERT SAID THAT SHE WILL BE IN AN HOUR TO DO DIALYSIS TO THE PT.
[2017-12-26] MEDS: VALPROIC ACID 250 MG/5 ML UDC GT SCH ×2 (09:58→21:01)
[2017-12-26] MEDS: PANTOPRAZOLE 40 MG INJ VIAL IVP SCH (09:58)
[2017-12-26] MEDS: levETIRAcetam 100 MG/ML ORASYR GT SCH ×2 (09:58→21:02)
[2017-12-26] MEDS: LACTOBACILLUS RHAMNOSUS GG 1 EACH CAP GT SCH (09:59)
[2017-12-26] MEDS: EPOETIN ALFA 10,000 UNITS/ML VIAL SUBQ SCH (10:00)
[2017-12-26] MEDS: INSULIN LANTUS 100 UNITS/ML 10 ML VIAL SUBQ SCH (10:53)
[2017-12-26] MEDS ORDERED: PROPOFOL 200 MG/20 ML VIAL IV ONE (11:35)
[2017-12-26] MEDS: BUPIVACAINE-MPF 0.5% 30 ML VIAL INJ ONE ×2 (11:35→16:23)
[2017-12-26] MEDS ORDERED: SEVOFLURANE 250 ML BTL INH ONE (11:35)
--- NOTE | 2017-12-26 11:45 | NUR ---
PT WAS OFF THE UNIT AND WAS TAKEN BY OR NURSES FOR A I&D PROCEDURE. CONSENT IN THE CHART.
[2017-12-26] MEDS ORDERED: fentaNYL 0.05 MG/ML VIAL ONE (11:50)
[2017-12-26 12:00] VITALS: BP 112/64
--- NOTE | 2017-12-26 12:26 | NUR ---
PT WAS BACK TO ROOM FROM S/P I&D OF THE LEFT CHEST WALL. VITAL SIGNS TAKEN AND IS STABLE. WILL MONITOR PT.
--- NOTE | 2017-12-26 12:38 | NUR ---
RECEIVED REPORT FROM OR NURSEMAU REGARDING THE PT'S PROCEDURE. CULTURE DONE AND DRESSING REINFORCED.
--- NOTE | 2017-12-26 14:10 | NUR ---
12/26/17 RD FOLLOW UP COMPLETED PLEASE REFER TO NUTRITION PROGRESS NOTE UNDER CARE ACTIVITY FOR ESTIMATED NUTRITIONAL NEEDS. CONTINUE NEPRO TUBE-FEED INFUSION RATE AT 40 ML/HR WATER FLUSH [address] TO FOLLOW-UP 2-3 DAYS, HIGH RISK ROSA FENTON, RD
--- NOTE | 2017-12-26 15:56 | NUR ---
DIALYSIS WAS FINISHED AND OUT PUT WAS 3L.
[2017-12-26 16:00] VITALS: BP 138/61
[2017-12-26] MEDS: NACL 0.9% 1,000 ML IV SCH (18:50)
[2017-12-26] MEDS ORDERED: VANCOMYCIN 500 MG in DEXTROSE 5% 100 ML IV SCH (19:00)
--- NOTE | 2017-12-26 19:35 | NUR ---
ENDORSED PT TO CREAM SEPARATOR OPERATOR NURSEPAGE FOR CONTINUITY OF CARE. PT IS STABLE AT THIS TIME.
--- NOTE | 2017-12-26 19:36 | NUR ---
RECEIVED PT FROM DAY SHIFT NURSE KB-SG. PT AOX1-APHASIC, ON TRACH TO VENT-FIO2 24, FLOW RATE 50, SPO2 100%, CENTRAL LINE ON THE RT FEMORAL TRIPLE LUMEN FOR IV AND DIALYSIS ACCESS- DIALYSIS MONDAY, MONDAY AND MONDAY. S/P I&D LEFT CHEST-DRESSINGS NOTED ON THE LEFT CHEST AND LEFT HIP, AND HEELS- INTACT AND DRY. PT HAS A G-TUBE AND COLOSTOMY BAG IN PLACE. BED IN LOWEST POSITION, BED BREAKS ON, BOTH SIDE RAILS UP, AND BED ALARM ON. FALL PRECAUTIONS IN PLACE. ON SOFT WRIST RESTRICTIONS PLACED ON 12/26/17 @1738. WILL CONTINUE TO MONITOR.
[2017-12-26 20:00] VITALS: BP 127/69
--- NOTE | 2017-12-26 20:00 | NUR ---
VITAL SIGNS TAKEN AND TOLERATED WELL. NO S/S OF RESPIRATORY DISTRESS OR DISCOMFORT NOTED AT THIS TIME. WILL CONTINUE TO MONITOR.
[2017-12-26] MEDS: VIT-B COMP/VIT-C/FOLIC ACID 1 TAB GT SCH (21:03)
--- NOTE | 2017-12-26 21:04 | NUR ---
SCHEDULED MEDICATION GIVEN AND TOLERATED WELL. NO S/S OF RESPIRATORY DISTRESS OR DISCOMFORT NOTED AT THIS TIME. WILL CONTINUE TO MONITOR.
--- NOTE | 2017-12-26 23:00 | NUR ---
BLOOD GLUCOSE 88- NO INSULIN COVERAGE NEEDED. CHARGE NURSE JOAQUIN AND BROKE BEATER CHEVY AWARE OF LATE GLUCOSE CHECK DUE TO GLUCOMETERS ON UNIT NOT WORKING PROPERLY.
[2017-12-27] VITALS: BP 144/78
--- NOTE | 2017-12-27 | NUR ---
VITAL SIGNS TAKEN AND TOLERATED WELL. DRESSING CHANGE OF LEFT CHEST DUE TO INCREASED SATURATION. PT TOLERATED WELL. THERAHONEY WOUND DRESSING NOT AVAILABLE. WILL ENDORSE TO DAY SHIFT NURSE. NO S/S OF RESPIRATORY DISTRESS OR DISCOMFORT NOTED AT THIS TIME. WILL CONTINUE TO MONITOR.
[2017-12-27] MEDS: NACL 0.9% 1,000 ML IV SCH ×3 (00:11→16:00)
--- NOTE | 2017-12-27 00:11 | NUR ---
SPOKE WITH DR. BRADFORD ABOUT IVF ORDERS. WAS TOLD TO FOLLOW NS O.9% @20ML/HR. SHE WOULD LIKE TO SEE LABS BEFORE CHANGING IVF RATE TO 100ML/HR.
[2017-12-27] MEDS: THERAHONEY WOUND DRESSING TP SCH ×3 (00:14→13:17)
--- NOTE | 2017-12-27 02:00 | NUR ---
PT SLEEPING IN BED. NO S/S OF RESPIRATORY DISTRESS OR DISCOMFORT NOTED AT THIS TIME. WILL CONTINUE TO MONITOR.
[2017-12-27 04:00] VITALS: BP 134/71
--- NOTE | 2017-12-27 04:00 | NUR ---
VITAL SIGNS TAKEN AND TOLERATED WELL. NO S/S OF RESPIRATORY DISTRESS OR DISCOMFORT NOTED AT THIS TIME. WILL CONTINUE TO MONITOR.
[2017-12-27] MEDS: PIPER/TAZO 2.25GM/D5W PREMIX 50 ML IV SCH ×2 (04:47→12:29)
--- NOTE | 2017-12-27 04:47 | NUR ---
SCHEDULED MEDICATION ZOSYN GIVEN AND TOLERATED WELL. NO S/S OF RESPIRATORY DISTRESS OR DISCOMFORT NOTED AT THIS TIME. WILL CONTINUE TO MONITOR.
--- NOTE | 2017-12-27 06:00 | NUR ---
PT RESTING IN BED. NO S/S OF RESPIRATORY DISTRESS OR DISCOMFORT NOTED AT THIS TIME. WILL CONTINUE TO MONITOR.
--- NOTE | 2017-12-27 07:00 | NUR ---
BLOOD GLUCOSE 117-NO INSULIN COVERAGE NEEDED. NO S/S OF RESPIRATORY DISTRESS OR DISCOMFORT NOTED AT THIS TIME. WILL CONTINUE TO MONITOR.
[2017-12-27] MEDS: BLOOD GLUCOSE MONITORING 1 DEV DEV FS SCH ×3 (07:13→16:30)
--- NOTE | 2017-12-27 07:19 | NUR ---
ENDORSED PT CARE TO DAY SHIFT NURSE HERLINDA FOR CONTINUITY OF CARE.
--- NOTE | 2017-12-27 07:20 | NUR ---
RECEIVED SBAR REPORT AT PT BEDSIDE. PATIENT IS TRACH TO VENT. APHASIC, HX CVA, BEDBOUND, LOCALIZED TO PAIN. NO ACUTE DISTRESS NOTED. COLOSTOMY TO LOOSE STOOL. G-TUBE NEPHRO @ 40, MINIMAL RESIDUAL NOTED. RIGHT FEMORAL CENTRAL LINE PATENT AND INTACT. ON WOUND CARE BED. OFFLOADED PRESSURE AREAS. SKIN KEPT CLEAN AND DRY. WOUND DRESSINGS, CLEAN DRY AND INTACT. ALARMS CHECKED.
--- NOTE | 2017-12-27 07:24 | NUR ---
PATIENT IS AWAKE AND ALERT. TRACH CLEAN AND SECURE, AND CUFF AT 30 CM H2O. NO INDICATIONS FOR TX AT THIS TIME. NO SOB NOTED. PT SUCTIONED X2 DUE TO COARSE BREATH SOUNDS- MODERATE THIN, CLEAR SECRETIONS. VENT ALARMS ON AND AUDIBLE. VENT PLUGGED INTO RED OUTLET. AMBU BAG AT BEDSIDE. VENT SETTINGS: SIMV, RATE OF 12, PRESSURE SUPPORT OF 12, TIDAL VOLUME OF 500, 24% FIO2, PEEP OF 5.
[2017-12-27] MEDS ORDERED: PIPE1PDS39 IV (07:52)
[2017-12-27] MEDS ORDERED: LACT10CA GT (07:52)
[2017-12-27] MEDS ORDERED: Vancomycin Per Pharmacy MC (07:52)
[2017-12-27 08:00] VITALS: BP 135/77
[2017-12-27] MEDS: LACTOBACILLUS RHAMNOSUS GG 1 EACH CAP GT SCH (08:31)
[2017-12-27] MEDS: PANTOPRAZOLE 40 MG INJ VIAL IVP SCH (08:32)
[2017-12-27] MEDS: levETIRAcetam 100 MG/ML ORASYR GT SCH (08:32)
[2017-12-27] MEDS: VALPROIC ACID 250 MG/5 ML UDC GT SCH (08:32)
[2017-12-27] MEDS: AMIODARONE 200 MG TAB GT SCH (08:32)
[2017-12-27] MEDS: METOPROLOL 25 MG TAB PO SCH (08:32)
[2017-12-27] MEDS: INSULIN LANTUS 100 UNITS/ML 10 ML VIAL SUBQ SCH (08:34)
--- NOTE | 2017-12-27 10:10 | NUR ---
PATIENT ASSISTED IN CHANGING OF POSITIONS Q2H, OFFLOADED PRESSURE AREAS. COLOSTOMY BAG PULLED OFF SLIGHTLY BY PATIENT WHEN TURNING, REPLACED COLOSTOMY BAG, CLEAN AND INTACT. CENTRAL LINE DRESSING CHANGED AT BEDSIDE. NO ACUTE DISTRESS NOTED.
[2017-12-27 10:53] LABS: HEMATOCRIT 30.7 % (36-52); HEMOGLOBIN 9.5 g/dL (12.0-18.0); MEAN CORPUSCULAR HEMOGLOBIN 31 pg (27-31); MEAN CORPUSCULAR HGB CONC 31 g/dL (33-37); PLATELET COUNT (AUTO) 612 K/uL (140-450); RED BLOOD CELL COUNT(AUTO) 3.05 MIL/uL (4.20-6.10); RED CELL DISTRIBUTION WIDTH 18.2 % (11.6-13.7); WHITE BLOOD COUNT (AUTO) 11.9 K/uL (4.8-10.8)
[2017-12-27 11:01] LABS: ANION GAP 14.2 (8-16); CARBON DIOXIDE 22.9 mmol/L (21-32); POTASSIUM 4.1 mmol/L (3.5-5.1)
[2017-12-27 11:04] LABS: CREATININE 4.4 mg/dL (0.7-1.3); MAGNESIUM 2.1 mg/dL (1.8-2.4); PHOSPHORUS 5.1 mg/dL (2.5-4.9)
[2017-12-27 11:09] LABS: EOSINOPHILS % (MANUAL) 7 % (0-4); LYMPHOCYTES % (MANUAL) 9 % (20-46); MONOCYTES % (MANUAL) 5 % (5-12)
--- NOTE | 2017-12-27 11:45 | NUR ---
WOUND CARE RE-EVALUATION NOTE FOR S/P LEFT ANTERIOR CHEAT WALL RESIDUAL ABSCESS, WOUND BED IS RED, SMALL AMOUNT OF SANGUINOUS DRAINAGE, NO ODOR, [id number] WITH UNDERMINING FROM 7-12 OCLOCK 1.8CM DEEP, EDITH-WOUND SKIN INTACT. LEFT HIP PRESSURE INJURY HEALING IN PROGRESS, LEFT MEDIAL HEEL DTI SKIN INTACT. RIGHT/LEFT MEDIAL KNEE BLANCHABLE REDNESS RESOLVED. PT. TOLERATE WELL WITH DRESSING CHANGE. RT AT BED SIDE WHILE ASSESSMENT IS DONE. RECOMMENDATIONS: -CLEANSE SURGICAL WOUND TO LEFT ANTERIOR CHEAT WALL WITH NS. PAT DRY, APPLY THERAHONEY SHEET, COVER WITH DRY DRESSING QOD AND PRN IF SOILING. NEXT DRESSING CHANGE START 12/29/17 -CLEANSE LEFT HIP WITH WOUND CARE SOLUTION, PAT DRY, APPLY THERAHONEY SHEET, COVER WITH DRY DRESSING QD AND PRN IF SOILING -APPLY SKIN PREP TO LEFT MEDIAL HEEL AND SACRALCOCCYX AREAS BID AND CAR BLOCKER -TURN AND REPOSITION PATIENT Q 2H OFFLOAD LEFT AND RIGHT/LEFT HIPS -ASSESS AND MONITOR SKIN CONDITION DURING POSITION CHANGE, PLEASE PAY ATTENTION TO KNEE AND HEELS -HEEL RAISER TO BILATERAL HEELS -OFFLOAD BILATERAL HEELS BY PLACING PILLOWS UNDER CALVES AT ALL TIMES, UNLESS OTHERWISE CONTRAINDICATED -PRESSURE REDISTRIBUTION SURFACE THERAPY -KEEP SKIN CLEAN AND DRY AT ALL TIMES. ALL ABOVE RECOMMENDATIONS DISCUSSED WITH PRIMARY RN AND PLEASE CONTACT WOUND CARE NURSE FOR ANY QUESTION AND CHANGE OF WOUND CONDITION.
[2017-12-27 12:00] VITALS: BP 137/67
--- NOTE | 2017-12-27 13:47 | NUR ---
1250 RECEIVED A CALL FROM JAYY FROM [facility] THAT THEY DO HAVE AN ISOLATION BED FOR PT TODAY. PT CAN GO TO ROOM 111B UNDER THE SERVICE OF DR BADILLO. JAYY REQUESTS HVAC SALES REPRESENTATIVE AFTER 7PM. IVR [phone] CLINICAL INFORMATION FAXED TO JAYY IN ADMISSIONS PER REQUEST.
--- NOTE | 2017-12-27 14:00 | NUR ---
PATIENT ASSISTED IN CHANGING OF POSITIONS Q2H DURING SHIFT. SKIN KEPT CLEAN DRY AND INTACT. NO ACUTE DISTRESS NOTED. OFFLOADED PRESSURE AREAS. WOUND DRESSINGS CHANGED, CLEAN AND INTACT. PATENT G-TUBE. COLOSTOMY DRAINING TO LOOSE LIQUID BM.
--- NOTE | 2017-12-27 14:35 | NUR ---
[facility] CCT TRANSPORT SET UP FOR 1900 PERSONAL FINANCIAL PLANNER [facility] UNDER THE CARE OF DR BADILLO AND WILL GO TO ROOM 111B
[2017-12-27 16:00] VITALS: BP 134/68
--- NOTE | 2017-12-27 16:10 | NUR ---
ORAL CARE PROVIDED Q4H AND PRN DURING SHIFT. NO ACUTE DISTRESS NOTED. OFFLOADED PRESSURE AREAS. CONTINUED ON WOUND CARE BED.
[2017-12-27] MEDS ORDERED: VANCOMYCIN PER PHARMACY MC PRN (17:22)
[2017-12-27 18:05] VITALS: BP 137/67
--- NOTE | 2017-12-27 19:22 | NUR ---
[facility] BY [facility]. SBAR REPORT GIVEN TO SG BERRY AT FACILITY. G-TUBE SITE PATENT AND INTACT. CENTRAL LINE DRESSING CLEAN DRY AND INTACT. COLOSTOMY BAG INTACT. NO ACUTE DISTRESS NOTED. PATIENT DISCHARGE INSTRUCTIONS GIVEN, UNABLE TO COMPREHEND TEACHING. WOUND PHOTOS TAKEN, PLACED IN CHART. PATIENT TAKEN OFF UNIT BY DOMI. NO S/S ACUTE DISTRESS.
[2017-12-29] MEDS ORDERED: THERAHONEY WOUND DRESSING TP SCH (13:00)
== END 2017-12-27 19:00 | DRG 264 ==
LOC: MED 07:39 → MTU 11:24
PROVIDERS: ADMIT General Practice; ATTEND General Practice
PROC: 5A1955Z Respiratory Ventilation, Greater than 96 Consecutive Hours (ICD-10-PCS; principal; 2017-12-13)
PROC: 0JB60ZZ Excision of Chest Subcutaneous Tissue and Fascia, Open Approach (ICD-10-PCS; 2017-12-13)
PROC: 02HV33Z Insertion of Infusion Device into Superior Vena Cava, Percutaneous Approach (ICD-10-PCS; 2017-12-13)
PROC: B548ZZA Ultrasonography of Superior Vena Cava, Guidance (ICD-10-PCS; 2017-12-13)
PROC: 05PYX3Z Removal of Infusion Device from Upper Vein, External Approach (ICD-10-PCS; 2017-12-13)
PROC: 02HV33Z Insertion of Infusion Device into Superior Vena Cava, Percutaneous Approach (ICD-10-PCS; 2017-12-13)
PROC: 0JH60XZ Insertion of Tunneled Vascular Access Device into Chest Subcutaneous Tissue and Fascia, Open Approach (ICD-10-PCS; 2017-12-13)
PROC: 5A1D70Z Performance of Urinary Filtration, Intermittent, Less than 6 Hours Per Day (ICD-10-PCS; 2017-12-13)
PROC: 5A1D70Z Performance of Urinary Filtration, Intermittent, Less than 6 Hours Per Day (ICD-10-PCS; 2017-12-15)
PROC: 5A1D70Z Performance of Urinary Filtration, Intermittent, Less than 6 Hours Per Day (ICD-10-PCS; 2017-12-17)
PROC: 5A1D70Z Performance of Urinary Filtration, Intermittent, Less than 6 Hours Per Day (ICD-10-PCS; 2017-12-19)
PROC: 5A1D70Z Performance of Urinary Filtration, Intermittent, Less than 6 Hours Per Day (ICD-10-PCS; 2017-12-21)
PROC: 5A1D70Z Performance of Urinary Filtration, Intermittent, Less than 6 Hours Per Day (ICD-10-PCS; 2017-12-23)
PROC: 0W980ZZ Drainage of Chest Wall, Open Approach (ICD-10-PCS; 2017-12-26)
PROC: 5A1D70Z Performance of Urinary Filtration, Intermittent, Less than 6 Hours Per Day (ICD-10-PCS; 2017-12-26)
DX: T82.7XXA Infection and inflammatory reaction due to other cardiac and vascular devices, implants and grafts, initial encounter (principal); L89.313 Pressure ulcer of right buttock, stage 3; L89.324 Pressure ulcer of left buttock, stage 4; A41.9 Sepsis, unspecified organism; N18.6 End stage renal disease; N17.0 Acute kidney failure with tubular necrosis; E43 Unspecified severe protein-calorie malnutrition; G93.40 Encephalopathy, unspecified; J69.0 Pneumonitis due to inhalation of food and vomit; J96.20 Acute and chronic respiratory failure, unspecified whether with hypoxia or hypercapnia; R53.2 Functional quadriplegia; N39.0 Urinary tract infection, site not specified; E87.1 Hypo-osmolality and hyponatremia; L02.213 Cutaneous abscess of chest wall; I12.0 Hypertensive chronic kidney disease with stage 5 chronic kidney disease or end stage renal disease; E11.52 Type 2 diabetes mellitus with diabetic peripheral angiopathy with gangrene; Z99.11 Dependence on respirator [ventilator] status; Z93.0 Tracheostomy status; Z99.2 Dependence on renal dialysis; E11.65 Type 2 diabetes mellitus with hyperglycemia; E02 Subclinical iodine-deficiency hypothyroidism; E87.6 Hypokalemia; J44.9 Chronic obstructive pulmonary disease, unspecified; K21.9 Gastro-esophageal reflux disease without esophagitis; I10 Essential (primary) hypertension; E11.22 Type 2 diabetes mellitus with diabetic chronic kidney disease; Z86.73 Personal history of transient ischemic attack (TIA), and cerebral infarction without residual deficits; Z93.3 Colostomy status; Z86.14 Personal history of Methicillin resistant Staphylococcus aureus infection; E87.8 Other disorders of electrolyte and fluid balance, not elsewhere classified; Y84.1 Kidney dialysis as the cause of abnormal reaction of the patient, or of later complication, without mention of misadventure at the time of the procedure; Y92.89 Other specified places as the place of occurrence of the external cause; G40.909 Epilepsy, unspecified, not intractable, without status epilepticus; K80.20 Calculus of gallbladder without cholecystitis without obstruction; D64.9 Anemia, unspecified; L89.202 Pressure ulcer of unspecified hip, stage 2; E83.39 Other disorders of phosphorus metabolism; F01.50 Vascular dementia, unspecified severity, without behavioral disturbance, psychotic disturbance, mood disturbance, and anxiety; J39.8 Other specified diseases of upper respiratory tract; Z22.322 Carrier or suspected carrier of Methicillin resistant Staphylococcus aureus; Z74.01 Bed confinement status; Z93.1 Gastrostomy status
CPT/HCPCS: 36415; 36600; 51702; 71045; 76536; 76705; 76881; 80048; 80053; 80202; 81001; 82140; 82607; 82728; 82746; 82803; 82948; 83036; 83540; 83605; 83690; 83735; 83880; 84100; 84436; 84443; 84479; 85025; 85045; 85610; 85730; 87040; 87070; 87075; 87081; 87086; 87186; 87205; 89220; 90935; 93005; 93970; 93971; 94002; 94003; 94640; 96365; 96375; 99285; C1758; C9113; J0692; J0696; J0885; J1200; J1450; J1642; J1644; J1815; J1956; J2060; J2543; J2704; J2997; J3010; J3370; J3480; J3490; J7030; J7042; J7060; J7620; Q0092; Q0163